=== PATIENT | female | born 1965 | race Caucasian/White ===

== ENCOUNTER 2017-02-10 13:27 | Inpatient (IN) | payer BC ==
[~2017-02-10] VITALS: Ht 167.6 cm; Wt 87.4 kg
[~2017-02-10 13:27] MED LIST: CHOL100010 PO; ESTROGEN CREAM TOP; IBUP-103 PO; MELA1TAB5 PO; PROG100C6 PO; SULF800T23 PO; THY/30 PO; [UNRECOGNIZED DRUG - OTHER] PO
[2017-02-10] MEDS ORDERED: ONDANSETRON INJ 2 MG/ML 2 ML VIAL IV STA (13:49)
[2017-02-10] MEDS ORDERED: MoRPHine SULFATE 10 MG/ML CARP/VIAL IV STA (13:49)
[2017-02-10] MEDS ORDERED: KETOROLAC TROMETHAMINE 30 MG/ML VIAL IV STA (13:49)
[2017-02-10] MEDS ORDERED: DEXAMETHASONE SOD INJ 10 MG/ML VIAL IV ONE (14:00)
[2017-02-10] MEDS ORDERED: HYDROmorphone INJ 1 MG/ML SYR IV STA (14:30)
--- NOTE | 2017-02-10 15:26 | EMERGENCY ROOM VISIT NOTE ---
ED Visit Note First contact with patient: 13:42 CHIEF COMPLAINT: Low back pain with left leg pain HISTORY OF PRESENT ILLNESS: This 51-year-old female presents the ER with chief complaint of acute onset of increased low back pain and pain down her left leg. The patient has chronic back pain since her back surgery [place] [address] Vera. She had a fusion of the L5-S1. She was having some increased back pain in July 2016 and went back to Dr. Vera. They thought she might have SI joint issues. She was told to go back to her chiropractor. The patient states that she has been going there many times a month for the last several months. She states it was getting a little better but today for no reason. She started getting pain in the back and down the left leg. She states in the past. The pain was going down the right leg. The patient denies any urinary symptoms of frequency, urgency or dysuria. The patient denies any loss of bowel or bladder control or any saddle anesthesia. REVIEW OF SYSTEMS:6 system review was performed and was negative unless stated otherwise in history of present illness. PMH: The patient is healthy; L5-S1 fusion [place] [address] Vera, hysterectomy, kidney disease SOCIAL HISTORY: The patient is self-employed. The patient denies any tobacco or alcohol use. PHYSICAL EXAM: Vital Signs normal: Reviewed Nurse's notes and agree. GENERAL: 51-year-old white female appears uncomfortable secondary to back pain. MENTAL STATUS: Alert and oriented 3. LUNGS: Clear to auscultation without wheezes rales or rhonchi. CARDIAC: Regular rate and rhythm without murmur. LUMBAR SPINE: No gross bony abnormality noted. Patient is tender to palpation over the mid to lower spinous processes. She is tender to palpation over the left paravertebral region, right side nontender. Limited range of motion in all directions secondary to pain. Muscle strength is 5 out of 5 bilateral lower extremities and symmetrical. NEURO: Patient is able to heel and toe walk without difficulty. I lateral patellar and Achilles reflexes are 2+. Sensation is intact to pinprick bilateral lower extremities. Negative straight leg raise bilaterally. EMERGENCY DEPARTMENT COURSE: The patient was evaluated. IV access was obtained. The patient was given Toradol 30 mg IV, Decadron 10 mg IV, morphine 6 mg IV and Zofran 4 mg IV push. The patient was reevaluated and was still in significant pain. She was given Dilaudid 1 mg IV. She is reevaluated and was still in significant pain and did not feel comfortable to be discharged. The hospitalist was consulted for admission for 24 hours observation. An x-ray of the lumbar spine was ordered.. DIAGNOSIS: Intractable low back pain DISCHARGE INSTRUCTIONS AND TREATMENT: Admission Problem List Medical Problems: (1) Abdominal pain Status: Resolved (2) Abscess of right breast Status: Resolved (3) Hypothyroidism Nos Status: Chronic (4) Leiomyoma Status: Resolved (5) Menorrhagia Status: Resolved Surgical Problems: (1) History of hysterectomy Status: Resolved (2) History of lumbar fusion Status: Resolved Current/Historical Medications Scheduled Cholecalciferol (Vitamin D), 5,000 INTER.UNIT PO QAM Melatonin (Kp Melatonin), 1 TAB PO HS Progesterone (Prometrium), 200 MG PO DAILY Thyroid ([facility] [place] Thyroid), 30 MG PO QAM [Estrogen Cream], 0.5 ML TOP HS [adrenevive], 2 CAP PO BID Allergies Coded Allergies: Penicillins (Verified Allergy, Mild, Rash, 09/17/16) PT HAD ANCEF W/O RXN 05/19/12 Vital Signs Date Time Temp Pulse Resp B/P Pulse Ox O2 Delivery O2 Flow Rate FiO2 02/10/17 13:32 36.8 115 18 97 Room Air Medications Administered Medications (Trade) Dose Ordered Sig/Mitra Route Start Time Stop Time Status Last Admin Dose Admin Dexamethasone Sodium Phosphate (Decadron Inj) 10 mg NOW ONCE IV 02/10/17 14:00 02/10/17 14:01 DC 02/10/17 14:02 10 MG Ketorolac Tromethamine (Toradol Inj) 30 mg NOW STAT IV 02/10/17 13:49 02/10/17 13:51 DC 02/10/17 14:02 30 MG Morphine Sulfate (MoRPHine SULFATE INJ) 6 mg NOW STAT IV 02/10/17 13:49 02/10/17 13:51 DC 02/10/17 14:02 6 MG Ondansetron HCl (Zofran Inj) 4 mg NOW STAT IV 02/10/17 13:49 02/10/17 13:51 DC 02/10/17 14:02 4 MG Hydromorphone HCl (Dilaudid Inj) 1 mg NOW STAT IV 02/10/17 14:30 02/10/17 14:32 DC 02/10/17 14:38 1 MG Departure Information Impression Primary Impression: Intractable low back pain Dispostion Being Evaluated By Hospitalist Condition GOOD Referrals No Doctor, Assigned (PCP) Patient Instructions [facility]
[2017-02-10] MEDS ORDERED: ONDANSETRON INJ 2 MG/ML 2 ML VIAL IV PRN (15:45)
[2017-02-10] MEDS ORDERED: ACETAMINOPHEN 325 MG TAB PO PRN (15:45)
--- NOTE | 2017-02-10 15:51 | DIAGNOSTIC IMAGING REPORT ---
LUMBAR SPINE 5 VIEWS HISTORY: Pain low back pain COMPARISON: None. FINDINGS: There is no fracture. Mild scoliosis. Vertebral body stature is unremarkable. Mild to moderate degenerative disc changes throughout. Findings consistent with laminectomy and fusion at L5-S1. IMPRESSION: Moderate degenerative and postoperative change. No acute bony abnormality. Electronically signed by: Cory Spencer M.D. 02/10/2017 3:50 PM Dictated Date/Time: 02/10/2017 3:49 PM
[2017-02-10] MEDS: OXYCODONE/ACETAMINOPHEN 5-325 TAB PO PRN ×2 (16:32→23:38)
--- NOTE | 2017-02-10 17:04 | History and Physical ---
History & Physical Date & Time of Service: Feb 10, 2017 at 16:27 Chief Complaint: Low Back Pain Primary Care Physician: No Doctor, Assigned History of Present Illness 51 year old female who presents to the ER with severe low back pain radiating into the left leg. Patient has history of prior lumbar fusion at L5-S1 in 2011. Patient reports intermittent issues with back pain since that times. She was seen at the spine orthopedic office a few months ago for increased pain. She had xrays that were unremarkable and was advised to try chiropractic and massage therapy. Patient reports she initially was having improvement. This morning patient stood up from her desk and had sudden onset of left lower back pain that was radiating into the left hip and down the outer part of left her leg. It caused her to fall to the ground. She reports associated numbness in the left leg. No loss of bowel or bladder function. She denies chest pain and shortness of breath. No lightheadedness, dizziness, diaphoresis, or syncope. She denies abdominal pain, nausea, vomiting, and diarrhea. No fever or chills. She denies urinary symptoms. In the ER, lumbar XR is unremarkable. Patient received Morphine, Dilaudid, Toradol, Decadron, and Zofran and continues to have pain. Past Medical/Surgical History Medical Problems: (1) Abdominal pain Status: Resolved (2) Abscess of right breast Status: Resolved (3) GERD (gastroesophageal reflux disease) Status: Chronic (4) Hypothyroidism Status: Chronic (5) Hypothyroidism Nos Status: Chronic (6) Migraine Status: Chronic Surgical Problems: (1) H/O dilation and curettage Status: Chronic (2) History of hysterectomy Status: Resolved (3) History of hysterectomy Status: Chronic (4) History of lumbar fusion Status: Resolved (5) S/P lumbar fusion Status: Chronic Family History Cardiac disorder in mother Social History Smoking Status: Never Smoker Alcohol Use: socially Multi-Drug Resistant Organisms History of MDRO: No Allergies Coded Allergies: Penicillins (Verified Allergy, Mild, Rash, 09/17/16) PT HAD ANCEF W/O RXN 05/19/12 Home Medications Scheduled Cholecalciferol (Vitamin D), 5,000 INTER.UNIT PO QAM Melatonin (Kp Melatonin), 1 TAB PO HS Progesterone (Prometrium), 200 MG PO DAILY Thyroid ([place] Thyroid), 30 MG PO QAM [Estrogen Cream], 0.5 ML TOP HS [adrenevive], 2 CAP PO BID Review of Systems 10 point review of systems was completed with the pertinent positives and negatives noted per the HPI Physical Exam Vital Signs Date Time Temp Pulse Resp B/P Pulse Ox O2 Delivery O2 Flow Rate FiO2 02/10/17 15:28 108 16 156/80 96 Room Air 02/10/17 13:32 36.8 115 18 97 Room Air General Appearance: no apparent distress Head: normocephalic Eyes: normal inspection ENT: hearing grossly normal Neck: supple, no JVD Respiratory/Chest: lungs clear, normal breath sounds, no respiratory distress Cardiovascular: regular rate, rhythm, no edema, normal peripheral pulses Abdomen/GI: normal bowel sounds, non tender, soft Extremities/Musculoskelatal: + pertinent finding (positive straight leg test on left ) Neurologic/Psych: no motor/sensory deficits, alert, normal mood/affect, oriented x 3 Skin: normal color, warm/dry Diagnostics Laboratory Results Results Past 24 Hours Test 02/10/17 16:02 Range/Units Diagnostic Radiology LUMBAR XR IMPRESSION: Moderate degenerative and postoperative change. No acute bony abnormality. Impression Assessment and Plan INTRACTABLE LOW BACK PAIN - admit to med/surg - patient with history of L5-S1 fusion in 2011; patient reports intermittent back pain since then however had sudden onset of severe left sided low back pain with radiation down the lateral side of the left leg with associated numbness; no loss of bowel or bladder function - lumbar XR unremarkable; will defer further imaging to spine ortho - will start around the clock Toradol and steroids; Percocet and Morphine for severe pain - consult spine ortho - PT/OT HYPOTHYROIDISM - continue [place] thyroid DVT PROPHYLAXIS - SCDs DISPO - The patient will be placed as observation status for now until further work up is complete. I have seen, examined and discussed this patient with Deb Chaves and I agree with the above note. Patient with worsening low back pain, with radiation down the left leg. Vitals stable. PE: General- awake; alert; NAD Eyes- EOMI; no scleral icterus Neck- no stridor; trachea midline Lungs- CTA bilaterally; no wheezes/crackles Heart- RRR; no m/r/g Abdomen- soft; NTND; nBS Back- left paraspinal tenderness to palpation; lumbar spinal tenderness to palpation; +leg raise Extremities- no c/c/e; no deformity Neuro- no focal deficits; strength equal bilateral LE Skin- no appreciable rash or bruise Imaging reviewed. Acute on chronic low back pain with apparent sciatica: Orthopedics consulted. PT /OT evaluations. Pain control as outlined above. VTE Prophylaxis VTE Risk Assessment Done? Y/N: Yes Risk Level: Moderate
[2017-02-10 17:30] VITALS: BP 147/73; PULSE 88; TEMP 36.9; O2SAT 94; Ht 167.6 cm; Wt 87.4 kg
[2017-02-10 18:17] LABS: HEMATOCRIT 42.7 % (37-47); MEAN CORPUSCULAR HGB CONC 33.7 g/dl (32-36); MEAN PLATELET VOLUME 9.3 fL (7.4-10.4); PLATELET COUNT 358 K/uL (130-400); RED BLOOD COUNT 4.64 M/uL (4.2-5.4); WHITE BLOOD COUNT 11.22 K/uL (4.8-10.8)
[2017-02-10 18:39] LABS: BUN/CREATININE RATIO 22.5 (10-20); CALCIUM 9.5 mg/dl (8.5-10.1); CREATININE 0.69 mg/dl (0.60-1.20); POTASSIUM 3.9 mmol/L (3.5-5.1)
[2017-02-10] MEDS ORDERED: INFLUENZA ADMINISTRATION CHARGE ONE (20:30)
[2017-02-10] MEDS ORDERED: INFLUENZA VIRUS QUAD VACCINE 0.5 ML SYR IM. ONE (20:30)
[2017-02-10] MEDS: KETOROLAC TROMETHAMINE 30 MG/ML VIAL IV. SCH (21:16)
[2017-02-10] MEDS: DEXAMETHASONE INJ 4 MG in SYRINGE 0 ML IV SCH (21:55)
[2017-02-10] MEDS: MoRPHine SULFATE 4 MG/ML 1 ML CARP\\VIAL IV PRN (22:03)
[2017-02-10 23:07] VITALS: BP 128/76; PULSE 109; TEMP 37; O2SAT 92
[2017-02-11] VITALS (7 sets, daily range): BP systolic 113–159; BP diastolic 75–88; PULSE 89–115; TEMP 36.8–37.2; O2SAT 94–99
[2017-02-11] MEDS: KETOROLAC TROMETHAMINE 30 MG/ML VIAL IV. SCH ×2 (04:49→13:12)
[2017-02-11] MEDS: OXYCODONE/ACETAMINOPHEN 5-325 TAB PO PRN ×4 (04:53→23:47)
[2017-02-11] MEDS: ARMOUR THYROID 30 MG TAB PO SCH (05:51)
[2017-02-11] MEDS: DEXAMETHASONE INJ 4 MG in SYRINGE 0 ML IV SCH ×3 (05:52→22:02)
[2017-02-11] MEDS: MoRPHine SULFATE 4 MG/ML 1 ML CARP\\VIAL IV PRN ×2 (06:31→11:41)
[2017-02-11] MEDS: CHOLECALCIFEROL 1000 INTER.UNIT TAB PO SCH (09:07)
--- NOTE | 2017-02-11 16:06 | DIAGNOSTIC IMAGING REPORT ---
MRI OF THE LUMBAR SPINE WITHOUT IV CONTRAST CLINICAL HISTORY: Back pain and left lower extremity radiculopathy. COMPARISON STUDY: Radiographs of the lumbar spine dated 02/10/2017. Abdominal CT dated 01/16/2016. TECHNIQUE: MRI of the lumbar spine is performed utilizing various T1 and T2-weighted sequences in the axial and sagittal planes. IV contrast was not administered for this examination. FINDINGS: Lumbar spine: Vertebral body height and alignment are maintained throughout the lumbar spine. There is mild straightening of the lumbar lordosis. There is evidence of posterior fusion at L5-S1. Interpedicular screws are present at both levels. The remaining spinous processes and the transverse processes are grossly intact. Chronic degenerative endplate change is seen at L4-L5 and L5-S1. Endplate edema is noted at L5-S1. No destructive bony lesion is seen. A tiny hemangioma is suspected in the body of T12. Intervertebral discs: There is evidence of discectomy at L5-S1. Degenerative disc desiccation is seen at the remaining lumbar levels. There is moderate loss of height at L4-L5. Only mild loss of height is seen at the remaining levels. Spinal cord: The visualized spinal cord is normal in morphology and signal intensity. The conus medullary terminates at the T12-L1 interspace. The nerve roots of the cauda equina are normal in morphology. L1-L2: There is posterior disc bulge eccentric to the left. The central canal is clear. The disc bulge abuts the transiting left L2 nerve root. The neural foramina are clear. L2-L3: There is minimal posterior disc bulge. The central canal is clear, as are the neural foramina. There is mild left-sided subarticular stenosis. L3-L4: There is posterior disc bulge. There is no significant acquired compromise of the central canal. There is mild bilateral subarticular stenosis, left greater than right. The neural foramina are patent. L4-L5: There is a posterior disc herniation with an inferiorly extruded fragment eccentric to the left. The disc fragment measures at least 1.5 cm. There is no significant acquired compromise of the central canal at this level. The disc fragment abuts the transiting left-sided nerve roots. L5-S1: The central canal and neural foramina are patent. Soft tissues: Postoperative changes seen posteriorly at L5-S1. There is mild fatty atrophy of the paraspinous musculature. Bilateral parapelvic cysts are seen in the kidneys. Sacrum: Visualized sacrum is normal in morphology and signal intensity. IMPRESSION: 1. There are postoperative changes from L5-S1 spinal fusion. The central canal appears clear at this level. 2. There is a posterior disc herniation with a large inferiorly extruded fragment eccentric to the left at L4-L5. This likely abuts the transiting left-sided nerve roots. 3. Lumbosacral spondylosis at additional levels as detailed above. See discussion for [id number] analysis. 4. Degenerative disc disease as above with associated endplate edema at L4-L5. Dictated: 02/11/2017 3:41 PM Transcribed: 02/11/2017 4:06 PM [email or web address] Electronically signed by: Tonny Daly M.D. 02/14/2017 7:05 AM Dictated Date/Time: 02/11/2017 3:41 PM
[2017-02-11] MEDS ORDERED: CLONIDINE HCL 0.1 MG TAB PO PRN (17:00)
--- NOTE | 2017-02-11 17:02 | ORTHOPEDIC CONSULTATION ---
DATE OF CONSULTATION: 02/11/2017 CHIEF COMPLAINT: Left leg pain. HISTORY OF PRESENT ILLNESS: This is a 51-year-old female who is well known to me status post lumbar decompression and fusion in 2011. She had really done nicely postoperatively, but over the past several months had had some intermittent back pain, but over the past day or so had marked increase of symptom complex involving the left buttock, posterior thigh extending below the knee into the dorsum of the foot and medial toes. It is significantly limiting in nature with inability to ambulate. The right lower extremity is essentially asymptomatic. She denies any loss of bowel or bladder function. Of note, she has been undergoing pediatric care coordinator and physical therapy prior to this time. PHYSICAL EXAMINATION: She exhibits marked tension signs to straight leg raising on the left. She has weakness to dorsiflexion and extensor hallus longus on the left compared to 5/5 on the right. Sensory is symmetric and intact. X-rays do demonstrate solid fusion at the L5-S1 level. No gross instability appreciated. ASSESSMENT: Acute left-sided lumbar radiculopathy. PLAN: At this time would like to obtain an MRI of the lumbar spine, review the findings and make further recommendations.
--- NOTE | 2017-02-11 17:05 | Progress Note ---
Medicine Progress Note Date & Time of Visit: Feb 11, 2017 at 17:01. Subjective seen resting in bed states pain scale is 5/10, worse with walking no leg weakness, numbness no chest pain, dyspnea, dizziness reports mild epigastric discomfort today no other symptoms Objective Last 8 Hrs Date Time Temp Pulse Resp B/P Pulse Ox O2 Delivery O2 Flow Rate FiO2 02/11/17 14:52 36.9 105 20 159/77 99 02/11/17 11:47 37.1 108 22 143/88 96 Room Air 02/11/17 11:30 115 95 02/11/17 09:27 98 Room Air Physical Exam: General-oriented x 3, not in distress, speaks in sentences with no effort Head- atraumatic Eyes- EOMI, anicteric Neck- supple, no JVD Lungs- clear to auscultation b/l Heart- regular rhythm; no murmur, sabine rate Abdomen- normal bowel sounds, soft, nontender Extremities- no pretibial edema, no calf tenderness Neuro- alert, oriented x 3; no gross deficits Skin- warm & dry Laboratory Results: Last 24 Hours Test 02/10/17 18:05 White Blood Count 11.22 K/uL Red Blood Count 4.64 M/uL Hemoglobin 14.4 g/dL Hematocrit 42.7 % Mean Corpuscular Volume 92.0 fL Mean Corpuscular Hemoglobin 31.0 pg Mean Corpuscular Hemoglobin Concent 33.7 g/dl RDW Standard Deviation 43.5 fL RDW Coefficient of Variation 13.0 % Platelet Count 358 K/uL Mean Platelet Volume 9.3 fL Sodium Level 142 mmol/L Potassium Level 3.9 mmol/L Chloride Level 106 mmol/L Carbon Dioxide Level 25 mmol/L Anion Gap 11.0 mmol/L Blood Urea Nitrogen 16 mg/dl Creatinine 0.69 mg/dl Est Creatinine Clear Calc Drug Dose 107.4 ml/min Estimated GFR () 116.8 Estimated GFR (Non- 100.8 BUN/Creatinine Ratio 22.5 Random Glucose 147 mg/dl Calcium Level 9.5 mg/dl Assessment & Plan INTRACTABLE LOW BACK PAIN DISC HERNIATION L4-L5 - patient with history of L5-S1 fusion in 2011; patient reports intermittent back pain since then however had sudden onset of severe left sided low back pain with radiation down the lateral side of the left leg with associated numbness; no loss of bowel or bladder function - start Tramadol PRN, Gabapentin, Lidoderm patch, warm compress continue PRN Morphine start Senokot S, IV fluids - awaiting Dr. Vera's recommendations HYPOTHYROIDISM - check TS H - continue [place] thyroid HYPERTENSION - likely from pain also has white coat syndrome as per patient - Clonidine PRN DVT PROPHYLAXIS - SCDs for now DISPO pending Current Inpatient Medications: Current Inpatient Medications Medications (Trade) Dose Ordered Sig/Mitra Route Start Time Stop Time Status Last Admin Dose Admin Acetaminophen (Tylenol Tab) 650 mg Q4H PRN PO 02/10/17 15:45 03/12/17 15:44 Ondansetron HCl 4 mg 4 mg Q6H PRN IV 02/10/17 15:45 03/12/17 15:44 02/10/17 22:02 4 MG Dexamethasone Sodium Phosphate/ Syringe (Decadron Inj/ Syringe) 1 ml @ 1 mls/min Q8H IV 02/10/17 22:00 03/12/17 21:59 02/11/17 13:53 1 MLS/MIN Oxycodone/ Acetaminophen (Percocet 5-325mg Tab) 1 tab Q4H PRN PO 02/10/17 16:15 02/24/17 16:14 02/11/17 14:03 1 TAB Morphine Sulfate (MoRPHine SULFATE INJ) 3 mg Q4H PRN IV 02/10/17 16:15 02/24/17 16:14 02/11/17 11:41 3 MG Cholecalciferol (Vitamin D Tab) 5,000 inter.unit QAM PO 02/11/17 09:00 03/13/17 08:59 02/11/17 09:07 5,000 INTER.UNIT Thyroid ([place] Thyroid Tab) 30 mg DAILYBB PO 02/11/17 06:00 03/13/17 06:59 02/11/17 05:51 30 MG Miscellaneous Information (Order Awaiting Action) 1 ea QS N/A 02/11/17 00:00 03/13/17 00:00 Ketorolac Tromethamine (Toradol Inj) 30 mg Q8H IV. 02/10/17 21:00 02/15/17 20:59 02/11/17 13:12 30 MG
[2017-02-11] MEDS: SODIUM CHLORIDE 0.9% 1000ML 1,000 ML IV SCH (17:37)
[2017-02-11] MEDS ORDERED: LIDODERM (LIDOCAINE) PATCH 5% TD ONE (18:00)
[2017-02-11] MEDS ORDERED: DOCUSATE SODIUM/SENNA 50/8.6MG TAB PO ONE (18:00)
[2017-02-11] MEDS ORDERED: PANTOprazole INJ 40 MG in SYRINGE 0 ML IV ONE (18:00)
[2017-02-11] MEDS: MAGNESIUM HYDROXIDE SUSP 30 ML UDC PO PRN (20:34)
[2017-02-11] MEDS: TRAMADOL HCL 50 MG TAB PO PRN (20:34)
[2017-02-11] MEDS: GABAPENTIN 300 MG CAP PO SCH (20:34)
[2017-02-12] MEDS: SODIUM CHLORIDE 0.9% 1000ML 1,000 ML IV SCH ×3 (02:14→22:35)
[2017-02-12] MEDS: OXYCODONE/ACETAMINOPHEN 5-325 TAB PO PRN ×3 (05:22→21:29)
[2017-02-12] MEDS: ARMOUR THYROID 30 MG TAB PO SCH (05:23)
[2017-02-12] MEDS: DEXAMETHASONE INJ 4 MG in SYRINGE 0 ML IV SCH ×3 (05:24→21:34)
[2017-02-12 06:02] LABS: COMPLETE YES; HEMATOCRIT 40.1 % (37-47); IG% 0.3 %; LYMPH % 4.7 %; LYMPH ABS # 0.68 K/uL (1.2-3.4); MEAN CELL VOLUME 93.3 fL (80-100); MEAN CORPUSCULAR HEMOGLOBIN 30.5 pg (25-34); MEAN CORPUSCULAR HGB CONC 32.7 g/dl (32-36); MEAN PLATELET VOLUME 9.5 fL (7.4-10.4); MONO % 5.2 %; NEUT % 89.8 %; PLATELET COUNT 320 K/uL (130-400); WHITE BLOOD COUNT 14.34 K/uL (4.8-10.8)
[2017-02-12 06:35] LABS: BUN/CREATININE RATIO 36.2 (10-20); CALCIUM 8.6 mg/dl (8.5-10.1); CREATININE 0.7 mg/dl (0.60-1.20)
[2017-02-12 06:45] LABS: THYROID STIMULATING HORMONE 0.267 uIu/ml (0.300-4.500)
[2017-02-12 07:11] VITALS: BP 127/81; PULSE 81; TEMP 36.8; O2SAT 95
[2017-02-12] MEDS: GABAPENTIN 300 MG CAP PO SCH ×3 (08:32→19:58)
[2017-02-12] MEDS: CHOLECALCIFEROL 1000 INTER.UNIT TAB PO SCH (08:32)
[2017-02-12] MEDS: LIDODERM (LIDOCAINE) PATCH 5% TD SCH (08:38)
[2017-02-12] MEDS ORDERED: [UNRECOGNIZED DRUG - OTHER] EXT SCH (09:00)
[2017-02-12] MEDS: DOCUSATE SODIUM/SENNA 50/8.6MG TAB PO SCH (09:11)
--- NOTE | 2017-02-12 10:26 | PROGRESS NOTE ---
DATE: 02/12/2017 DATE: 02/12/2017. SUBJECTIVE: Ms. Blanco continues to complain of significant left leg pain and weakness. She has marked difficulty with ambulation secondary to discomfort and weakness. MRI performed yesterday afternoon of the lumbar spine [facility] available for review. It demonstrates instrumented solid fusion at the 5-1 level with evidence of marked Modic disease involving endplates of L4 and L5. There is significant degenerative change and a massive disc herniation at the 4-5 level on the left with caudal migration including a free fragment. This is creating significant compression of the traversing L5 nerve root. The disc itself nestled along the pedicle of L5 on the left. PHYSICAL EXAMINATION: The patient continues to demonstrate marked weakness to dorsiflexion on the left compared to the right and is obviously uncomfortable. Tension signs present on the left. ASSESSMENT: Herniated nucleus pulposus with marked neural compression L4-L5. PLAN: At this time, I had a long discussion with this patient regarding treatment options. They do include possible continued medical management, epidural injections or ultimately surgical intervention. Surgery would require decompression and fusion L4-L5 with removal of instrumentation L5-S1. Risks, benefits, pros, cons, and alternatives were outlined in detail. Risks include but not limited to from anesthesia, ____ process, nerve damage, blood loss requiring transfusion, infection, reoperation. Benefits would be marked improvement of her radiculopathy that is. At this time, the patient is going to consider options. I will see her again tomorrow morning. If she elects to pursue surgical intervention we would try to get this done Tuesday or as soon as possible in light of her neurologic decline.
[2017-02-12] MEDS: PANTOprazole INJ 40 MG in SYRINGE 0 ML IV SCH (11:16)
[2017-02-12] MEDS: MoRPHine SULFATE 4 MG/ML 1 ML CARP\\VIAL IV PRN (11:17)
--- NOTE | 2017-02-12 12:14 | Progress Note ---
Medicine Progress Note Date & Time of Visit: Feb 12, 2017 at 12:08. Subjective resting in bed had significant pain with walking pain level about the same as yesterday, relieved with PRN analgesics temporarily denies chest pain, dyspnea, palpitations, dizziness no BM yet no other symptoms Objective Last 8 Hrs Date Time Temp Pulse Resp B/P Pulse Ox O2 Delivery O2 Flow Rate FiO2 02/12/17 07:11 36.8 81 16 127/81 95 Room Air Physical Exam: General-oriented x 3, not in distress, speaks in sentences with no effort Eyes- anicteric Neck- no JVD Lungs- clear to auscultation b/l, no rales/wheezes Heart- regular rhythm; no murmur, normal rate Abdomen- normal bowel sounds, soft, nontender Extremities- no pretibial edema, no calf tenderness Neuro- alert, oriented x 3; no gross deficits Skin- warm & dry Laboratory Results: Last 24 Hours Test 02/12/17 05:09 White Blood Count 14.34 K/uL Red Blood Count 4.30 M/uL Hemoglobin 13.1 g/dL Hematocrit 40.1 % Mean Corpuscular Volume 93.3 fL Mean Corpuscular Hemoglobin 30.5 pg Mean Corpuscular Hemoglobin Concent 32.7 g/dl Platelet Count 320 K/uL Mean Platelet Volume 9.5 fL Neutrophils (%) (Auto) 89.8 % Lymphocytes (%) (Auto) 4.7 % Monocytes (%) (Auto) 5.2 % Eosinophils (%) (Auto) 0.0 % Basophils (%) (Auto) 0.0 % Neutrophils # (Auto) 12.87 K/uL Lymphocytes # (Auto) 0.68 K/uL Monocytes # (Auto) 0.74 K/uL Eosinophils # (Auto) 0.00 K/uL Basophils # (Auto) 0.00 K/uL RDW Standard Deviation 45.2 fL RDW Coefficient of Variation 13.2 % Immature Granulocyte % (Auto) 0.3 % Immature Granulocyte # (Auto) 0.05 K/uL Sodium Level 142 mmol/L Potassium Level 4.0 mmol/L Chloride Level 108 mmol/L Carbon Dioxide Level 27 mmol/L Anion Gap 7.0 mmol/L Blood Urea Nitrogen 25 mg/dl Creatinine 0.70 mg/dl Est Creatinine Clear Calc Drug Dose 105.8 ml/min Estimated GFR () 116.3 Estimated GFR (Non- 100.3 BUN/Creatinine Ratio 36.2 Random Glucose 121 mg/dl Calcium Level 8.6 mg/dl Thyroid Stimulating Hormone (TSH) 0.267 uIu/ml Assessment & Plan INTRACTABLE LOW BACK PAIN DISC HERNIATION L4-L5 - patient with history of L5-S1 fusion in 2011; patient reports intermittent back pain since then however had sudden onset of severe left sided low back pain with radiation down the lateral side of the left leg with associated numbness; no loss of bowel or bladder function - MRI noted - change Morphine to Dilaudid PRN continue percocet, tramadol, gabapentin, lidoderm patch, IV fluids add Heparin q8h for DVT prophylaxis - start Tramadol PRN, Gabapentin, Lidoderm patch, warm compress continue PRN Morphine - evaluated by Dr. Vera, may need surgical intervention appreciate the input HYPOTHYROIDISM - check TS H 0.2 check FT4 - continue [place] thyroid HYPERTENSION - likely from pain also has white coat syndrome as per patient - improving - Clonidine PRN DVT PROPHYLAXIS Heparin SC q8h hold night before surgery DISPO pending Current Inpatient Medications: Current Inpatient Medications Medications (Trade) Dose Ordered Sig/Mitra Route Start Time Stop Time Status Last Admin Dose Admin Acetaminophen (Tylenol Tab) 650 mg Q4H PRN PO 02/10/17 15:45 03/12/17 15:44 Ondansetron HCl 4 mg 4 mg Q6H PRN IV 02/10/17 15:45 03/12/17 15:44 02/10/17 22:02 4 MG Dexamethasone Sodium Phosphate/ Syringe (Decadron Inj/ Syringe) 1 ml @ 1 mls/min Q8H IV 02/10/17 22:00 03/12/17 21:59 02/12/17 05:24 1 MLS/MIN Oxycodone/ Acetaminophen (Percocet 5-325mg Tab) 1 tab Q4H PRN PO 02/10/17 16:15 02/24/17 16:14 02/12/17 11:53 1 TAB Morphine Sulfate (MoRPHine SULFATE INJ) 3 mg Q4H PRN IV 02/10/17 16:15 02/24/17 16:14 02/12/17 11:17 3 MG Cholecalciferol (Vitamin D Tab) 5,000 inter.unit QAM PO 02/11/17 09:00 03/13/17 08:59 02/12/17 08:32 5,000 INTER.UNIT Thyroid 30 mg 30 mg DAILYBB PO 02/11/17 06:00 03/13/17 06:59 02/12/17 05:23 30 MG Pantoprazole Sodium/Syringe (Protonix Inj/ Syringe) 10 ml @ 5 mls/min DAILY@11 IV 02/12/17 11:00 03/14/17 10:59 02/12/17 11:16 5 MLS/MIN Tramadol HCl (Ultram Tab) 50 mg Q6H PRN PO 02/11/17 17:00 03/13/17 16:59 02/11/17 20:34 50 MG Gabapentin 300 mg 300 mg TID PO 02/11/17 21:00 03/13/17 20:59 02/12/17 08:32 300 MG Sodium Chloride (Nss 1000ml) 1,000 ml @ 100 mls/hr Q10H IV 02/11/17 17:00 03/13/17 16:59 02/12/17 11:54 100 MLS/HR Senna/Docusate Sodium (Senokot S Tab) 1 tab QAM PO 02/12/17 09:00 03/14/17 08:59 02/12/17 09:11 1 TAB Magnesium Hydroxide (Milk Of Magnesia Susp) 30 ml Q6H PRN PO 02/11/17 17:00 03/13/17 16:59 02/11/17 20:34 30 ML Clonidine HCl (Catapres Tab) 0.1 mg Q6H PRN PO 02/11/17 17:00 03/13/17 16:59 Lidocaine (Lidoderm Patch 5%) 1 patch QAM TD 02/12/17 09:00 03/14/17 08:59 02/12/17 08:38 1 PATCH Miscellaneous (Remove Lidoderm Patch) 1 ea DAILY@21 N/A 02/11/17 21:00 03/13/17 20:59 02/11/17 22:04 1 EA Non-Formulary Medication 1 ea QAM EXT 02/12/17 09:00 03/13/17 22:14 02/12/17 08:36 1 EA Non-Formulary Medication (Non-Formulary Patient'S Own Med) 1 ea HS PO 02/12/17 21:00 03/14/17 20:59
[2017-02-12] MEDS ORDERED: BISACODYL 10 MG SUPP PR PRN (12:15)
[2017-02-12 13:45] LABS: PARTIAL THROMBOPLASTIN RATIO 0.9; PROTHROMBIN TIME (PATIENT) 10.7 SECONDS (9.0-12.0)
[2017-02-12] MEDS: LACTULOSE SYRUP 30 GM/45 ML UDP PO PRN (15:05)
[2017-02-12 15:18] VITALS: BP 147/80; PULSE 82; TEMP 36.6; O2SAT 99
[2017-02-12] MEDS: HEPARIN SOD 5000 UNIT/0.5 ML CARP SQ SCH ×2 (16:28→21:30)
[2017-02-12] MEDS: HYDROmorphone INJ 0.5 MG/0.5 ML SYR IV PRN (19:50)
[2017-02-12] MEDS: PROGESTERONE 150 MG PO SCH (19:57)
[2017-02-12 22:45] VITALS: BP 111/72; PULSE 78; TEMP 36.7; O2SAT 94
[2017-02-13] VITALS (8 sets, daily range): BP systolic 114–165; BP diastolic 63–82; PULSE 70–95; TEMP 36.8–37.1; O2SAT 92–98
[2017-02-13] MEDS: HYDROmorphone INJ 0.5 MG/0.5 ML SYR IV PRN ×2 (02:28→11:03)
[2017-02-13] MEDS: HEPARIN SOD 5000 UNIT/0.5 ML CARP SQ SCH ×2 (05:11→14:00)
[2017-02-13] MEDS: DEXAMETHASONE INJ 4 MG in SYRINGE 0 ML IV SCH ×3 (05:14→21:10)
[2017-02-13] MEDS: ARMOUR THYROID 30 MG TAB PO SCH (05:16)
[2017-02-13] MEDS: OXYCODONE/ACETAMINOPHEN 5-325 TAB PO PRN (05:19)
[2017-02-13] MEDS: SODIUM CHLORIDE 0.9% 1000ML 1,000 ML IV SCH ×3 (08:04→17:46)
[2017-02-13] MEDS ORDERED: MoRPHine SULFATE 4 MG/ML 1 ML CARP\\VIAL IV PRN (08:15)
[2017-02-13] MEDS ORDERED: OXYCODONE/ACETAMINOPHEN 5-325 TAB PO PRN (08:15)
[2017-02-13] MEDS: [UNRECOGNIZED DRUG - OTHER] EXT SCH (08:34)
[2017-02-13] MEDS: DOCUSATE SODIUM/SENNA 50/8.6MG TAB PO SCH (08:34)
[2017-02-13] MEDS: GABAPENTIN 300 MG CAP PO SCH ×3 (08:34→21:08)
[2017-02-13] MEDS: LIDODERM (LIDOCAINE) PATCH 5% TD SCH (08:35)
[2017-02-13] MEDS: CHOLECALCIFEROL 1000 INTER.UNIT TAB PO SCH (08:35)
[2017-02-13] MEDS: PANTOprazole INJ 40 MG in SYRINGE 0 ML IV SCH (11:03)
[2017-02-13] MEDS ORDERED: MoRPHine SULFATE 1 MG/ML 50 ML PCA CASS IV PRN (11:15)
[2017-02-13] MEDS ORDERED: NURSING VERBAL MED ORDER ONE (11:45)
[2017-02-13] MEDS ORDERED: NALOXONE HCL 0.4 MG/1 ML VIAL/CARP IV PRN ×2 (11:45)
[2017-02-13] MEDS ORDERED: SODIUM CHLORIDE 0.9% 1000ML 1,000 ML IV SCH (11:45)
[2017-02-13] MEDS ORDERED: HYDROmorphone HCL 0.5MG/ML 50 ML CASSETTE IV PRN (11:45)
[2017-02-13] MEDS: MORPHINE SULFATE 1 MG/ML 50 ML PCA SYR IV PRN ×3 (11:56→18:57)
--- NOTE | 2017-02-13 12:46 | PROGRESS NOTE ---
DATE: 02/13/2017 We had a lengthy discussion this morning regarding her progress. She still has significant pain and marked limitation with ambulation. She would like to proceed with surgical intervention. Again reviewed in detail what this would involve. She understands and agrees. PHYSICAL EXAMINATION: She does exhibit significant weakness to left dorsiflexion as well as extensor hallucis longus. She has dense numbness below the knee, particularly along the anterior tibia. Right lower extremity is asymptomatic. ASSESSMENT: Herniated nucleus pulposus, L4-L5. PLAN: At this time, she would like to proceed with surgery. She will be made n.p.o. after midnight. Again reviewed in detail what surgery would involve, risks, benefits, pros, cons, and alternatives.
--- NOTE | 2017-02-13 17:50 | Progress Note ---
Medicine Progress Note Date & Time of Visit: Feb 13, 2017 at 17:47. Subjective pain uncontrolled still this AM 9/10 morphine REAL ESTATE OFFICE SUPERVISOR started this PM, patient states her pain is under better controlled, in good spirits left leg is weaker and sensation decreasing,no incontinence no chest pain, dyspnea, palpitations, dizziness, nausea no other symptoms Objective Last 8 Hrs Date Time Temp Pulse Resp B/P Pulse Ox O2 Delivery O2 Flow Rate FiO2 02/13/17 16:51 36.8 70 18 165/81 98 Room Air 02/13/17 16:45 Room Air 02/13/17 14:51 37.1 86 16 117/75 94 Room Air 02/13/17 14:05 36.8 75 16 114/63 95 Room Air 02/13/17 13:05 37.0 95 18 132/82 93 Room Air 02/13/17 11:57 37.0 78 18 136/79 92 Room Air Physical Exam: General-oriented x 3, not in distress, speaks in sentences with no effort Eyes- anicteric Neck- no JVD Lungs- clear to auscultation b/l, no rales/wheezes Heart- regular rhythm; no murmur, normal rate Abdomen- normal bowel sounds, soft, nontender Extremities- no pretibial edema, no calf tenderness Neuro- alert, oriented x 3; left leg 4/5, sensation 50%, no other gross deficits Skin- warm & dry Assessment & Plan INTRACTABLE LOW BACK PAIN DISC HERNIATION L4-L5 - patient with history of L5-S1 fusion in 2011; patient reports intermittent back pain since then however had sudden onset of severe left sided low back pain with radiation down the lateral side of the left leg with associated numbness; no loss of bowel or bladder function - MRI noted - now on REAL ESTATE OFFICE SUPERVISOR Morphine pump hold heparin tonight - for surgery tomorrow, possible decompression no medical contraindications for surgery - evaluated by Dr. Vera appreciate the input HYPOTHYROIDISM - check TS H 0.2 check FT4: normal - continue [place] thyroid HYPERTENSION - likely from pain also has white coat syndrome as per patient - improving - Clonidine PRN DVT PROPHYLAXIS Heparin SC q8h hold tonight DISPO pending Current Inpatient Medications: Current Inpatient Medications Medications (Trade) Dose Ordered Sig/Mitra Route Start Time Stop Time Status Last Admin Dose Admin Acetaminophen (Tylenol Tab) 650 mg Q4H PRN PO 02/10/17 15:45 03/12/17 15:44 Ondansetron HCl 4 mg 4 mg Q6H PRN IV 02/10/17 15:45 03/12/17 15:44 02/10/17 22:02 4 MG Dexamethasone Sodium Phosphate/ Syringe (Decadron Inj/ Syringe) 1 ml @ 1 mls/min Q8H IV 02/10/17 22:00 03/12/17 21:59 02/13/17 14:08 1 MLS/MIN Cholecalciferol (Vitamin D Tab) 5,000 inter.unit QAM PO 02/11/17 09:00 03/13/17 08:59 02/13/17 08:35 5,000 INTER.UNIT Thyroid 30 mg 30 mg DAILYBB PO 02/11/17 06:00 03/13/17 06:59 02/13/17 05:16 30 MG Pantoprazole Sodium/Syringe (Protonix Inj/ Syringe) 10 ml @ 5 mls/min DAILY@11 IV 02/12/17 11:00 03/14/17 10:59 02/13/17 11:03 5 MLS/MIN Tramadol HCl (Ultram Tab) 50 mg Q6H PRN PO 02/11/17 17:00 03/13/17 16:59 02/11/17 20:34 50 MG Gabapentin 300 mg 300 mg TID PO 02/11/17 21:00 03/13/17 20:59 02/13/17 14:08 300 MG Sodium Chloride (Nss 1000ml) 1,000 ml @ 100 mls/hr Q10H IV 02/11/17 17:00 03/13/17 16:59 02/13/17 17:46 100 MLS/HR Senna/Docusate Sodium (Senokot S Tab) 1 tab QAM PO 02/12/17 09:00 03/14/17 08:59 02/13/17 08:34 1 TAB Magnesium Hydroxide (Milk Of Magnesia Susp) 30 ml Q6H PRN PO 02/11/17 17:00 03/13/17 16:59 02/11/17 20:34 30 ML Clonidine HCl (Catapres Tab) 0.1 mg Q6H PRN PO 02/11/17 17:00 03/13/17 16:59 Lidocaine (Lidoderm Patch 5%) 1 patch QAM TD 02/12/17 09:00 03/14/17 08:59 02/13/17 08:35 1 PATCH Miscellaneous (Remove Lidoderm Patch) 1 ea DAILY@21 N/A 02/11/17 21:00 03/13/17 20:59 02/12/17 21:29 1 EA Non-Formulary Medication (Non-Formulary Patient'S Own Med) 1 ea HS PO 02/12/17 21:00 03/14/17 20:59 02/12/17 19:57 1 EA Hydromorphone HCl (Dilaudid Inj) 0.5 mg Q3H PRN IV 02/12/17 12:15 02/26/17 12:14 02/13/17 11:03 0.5 MG Lactulose (Chronulac Syrup) 30 gm TID PRN PO 02/12/17 12:15 03/14/17 12:14 02/12/17 15:05 30 GM Bisacodyl (Dulcolax Supp) 10 mg DAILY PRN MO 02/12/17 12:15 03/14/17 12:14 Heparin Sodium (Porcine) (Heparin Sq 5000 Unit/0.5ml) 5,000 unit Q8 SQ 02/12/17 17:00 03/14/17 16:59 02/12/17 21:30 5,000 UNIT Non-Formulary Medication 1 ea QAM EXT 02/13/17 09:00 03/15/17 08:59 02/13/17 08:34 1 EA Oxycodone/ Acetaminophen (Percocet 5-325mg Tab) `1-2 tabs for pain 1 tab ... Q4H PRN PO 02/13/17 08:15 02/27/17 08:14 02/13/17 09:29 2 TAB Morphine Sulfate (MoRPHine SULFATE INJ) 4 mg Q3H PRN IV 02/13/17 08:15 02/27/17 08:14 02/13/17 08:31 4 MG Naloxone HCl (Narcan Inj) 0.1 mg Q5M PRN IV 02/13/17 11:45 02/27/17 11:44 Morphine Sulfate 50 mg 50 mg PRN PRN IV 02/13/17 11:45 02/27/17 11:44 02/13/17 14:55 50 MG Sodium Chloride (Nss 1000ml) 1,000 ml @ 15 mls/hr Q24H IV 02/13/17 11:45 03/15/17 11:44
--- NOTE | 2017-02-13 18:16 | Anesthesiology Progress Note ---
Anesthesia Progress Note Date of Service Feb 13, 2017. Progress Notes The patient is a 51 y/o female scheduled for L5/S1 hardware removal and L4/[address] Vera tomorrow. She has had worsening L leg and back pain. 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 PMH includes chronic cough, tachycardia, GERD, hypothyroidism, migraines, and obesity. She had a hysterectomy one year ago with no anesthesia problems. EKG shows NSR with sinus arrhythmia. Labs are significant for WBC 14.3. On exam the patient is pleasant. She has MP 2 airway with good neck extension. Teeth are intact with caps. Lungs are clear. Heart is RRR. Carotids are negative for bruits. She is an ASA 2. The patient was consented to GA with ETT. She was counseled to remain NPO after midnight except for sips of water with pills.
[2017-02-13] MEDS: PROGESTERONE 150 MG PO SCH (21:08)
[2017-02-14] VITALS (10 sets, daily range): BP systolic 111–146; BP diastolic 61–84; PULSE 64–88; TEMP 36.7–37.1; O2SAT 93–100
[2017-02-14] MEDS: SODIUM CHLORIDE 0.9% 1000ML 1,000 ML IV SCH ×3 (03:51→15:00)
[2017-02-14] MEDS: ARMOUR THYROID 30 MG TAB PO SCH (05:39)
[2017-02-14] MEDS: DEXAMETHASONE INJ 4 MG in SYRINGE 0 ML IV SCH (05:53)
[2017-02-14] MEDS: MORPHINE SULFATE 1 MG/ML 50 ML PCA SYR IV PRN ×6 (06:07→20:25)
[2017-02-14] MEDS ORDERED: HYDROmorphone INJ 1 MG/ML SYR IV PRN ×2 (07:45→14:45)
[2017-02-14] MEDS ORDERED: ONDANSETRON INJ 2 MG/ML 2 ML VIAL IV PRN ×2 (07:45→13:45)
[2017-02-14] MEDS ORDERED: ATROPINE SULFATE 0.1 MG/ML 5ML SYR IV PRN (07:45)
[2017-02-14] MEDS ORDERED: EpHEDrine SULFATE INJ 50 MG/ML AMP IV PRN (07:45)
[2017-02-14] MEDS ORDERED: FENTANYL CITRATE INJ 50 MCG/1 ML 2 ML VIAL IV PRN (07:45)
[2017-02-14] MEDS: CHOLECALCIFEROL 1000 INTER.UNIT TAB PO SCH (09:00)
[2017-02-14] MEDS: LIDODERM (LIDOCAINE) PATCH 5% TD SCH (09:00)
[2017-02-14] MEDS: GABAPENTIN 300 MG CAP PO SCH ×3 (09:00→20:54)
[2017-02-14] MEDS: DOCUSATE SODIUM/SENNA 50/8.6MG TAB PO SCH ×2 (09:00→20:54)
[2017-02-14] MEDS: [UNRECOGNIZED DRUG - OTHER] EXT SCH ×2 (09:15→10:38)
[2017-02-14] MEDS: PANTOprazole INJ 40 MG in SYRINGE 0 ML IV SCH (11:00)
[2017-02-14] MEDS ORDERED: FENTANYL CITRATE INJ 50 MCG/1 ML 2 ML VIAL ONE ×3 (11:19→13:56)
[2017-02-14] MEDS ORDERED: MIDAZOLAM HCL 1 MG/ML 2ML VIAL ONE (11:19)
--- NOTE | 2017-02-14 11:25 | History & Physical Bridge Note ---
H&P Re-Evaluation Bridge Note: I have examined the patient, reviewed the History & Physical and in the interval since the performance of the History & Physical I have noted the following changes of clinical significance: No changes noted
[2017-02-14] MEDS ORDERED: CLINDAMYCIN 600 MG/54 ML D5W IV ONE (11:40)
[2017-02-14] MEDS ORDERED: SODIUM CHLORIDE 0.9% PF 50 ML VIAL ONE (11:48)
[2017-02-14] MEDS ORDERED: BACITRACIN 50000 UNIT VIAL ONE (11:48)
[2017-02-14] MEDS ORDERED: BUPIVACAINE/EPINEPHRINE 0.5% MPF 1:200,000 30 ML VIAL ONE (11:48)
[2017-02-14] MEDS ORDERED: NURSING VERBAL MED ORDER ONE (12:15)
[2017-02-14] MEDS ORDERED: HYDROmorphone INJ 2 MG/ML SYR/VIAL ONE ×3 (12:28→14:03)
[2017-02-14] MEDS ORDERED: PHENYLEPHRINE 100MCG/ML 5ML SYR ONE (12:37)
[2017-02-14] MEDS ORDERED: LIDOCAINE HCL 2% 2 ML VIAL (20MG/ML) ONE (12:37)
[2017-02-14] MEDS ORDERED: ROCURONIUM BROMIDE 10 MG/ML 5 ML VIAL ONE (12:37)
[2017-02-14] MEDS ORDERED: PROPOFOL IV EMULSION 10 MG/ML 20 ML VIAL IV ONE (12:37)
[2017-02-14] MEDS ORDERED: DEXAMETHASONE SOD INJ 4 MG/ML VIAL ONE (12:37)
[2017-02-14] MEDS ORDERED: CLINDAMYCIN 600 MG/54 ML D5W 54 ML IV SCH (13:00)
[2017-02-14] MEDS ORDERED: FLOSEAL HEMOSTATIC MATRIX 10ML TOP ONE (13:26)
--- NOTE | 2017-02-14 13:34 | [facility] Post Operative Brief Note ---
Immediate Operative Summary Operative Date Feb 14, 2017. Pre-Operative Diagnosis acute left sided lumbar radiculopathy Post-Operative Diagnosis acute left sided lumbar radiculopathy Procedure(s) Performed L4-L5 Decompression and Instrumented Fusion; L5-S1 Removal Instrumentation; Use of Fibrinet; Interbody Fusion with Application of Interbody Cage L4-[address] Devendra Vera Discount Clerk Surgeon(s) Ary Liz PA-C Estimated Blood Loss 100 ml Findings hnp/stenosis Specimens A. explanted hardware
[2017-02-14] MEDS ORDERED: ONDANSETRON INJ 2 MG/ML 2 ML VIAL ONE (13:37)
[2017-02-14] MEDS ORDERED: NEOSTIGMINE METHYLSULFATE 1 MG/ML 10ML VIAL ONE (13:37)
[2017-02-14] MEDS ORDERED: KETOROLAC TROMETHAMINE 30 MG/ML VIAL ONE (13:37)
[2017-02-14] MEDS ORDERED: GLYCOPYRROLATE INJ 0.2 MG/ML VIAL ONE (13:37)
[2017-02-14] MEDS ORDERED: NALOXONE HCL 0.4 MG/1 ML VIAL/CARP IV PRN (13:45)
[2017-02-14] MEDS ORDERED: hydrOXYzine HCL 25 MG TAB PO PRN (13:45)
[2017-02-14] MEDS ORDERED: SOD PHOSPHATE/SOD BIPHOSPHATE ENEMA 132 ML BTL PR PRN (13:45)
[2017-02-14] MEDS ORDERED: ACETAMINOPHEN IV 100 ML IV PRN (13:45)
[2017-02-14] MEDS ORDERED: DO NOT ADMINISTER FLU VACCINE PRN ×3 (13:45)
[2017-02-14] MEDS ORDERED: ALUMINUM/MAGNESIUM SUSP 30 ML UDC PO PRN (13:45)
[2017-02-14] MEDS ORDERED: METOCLOPRAMIDE HCL INJ 5 MG/ML 2 ML VIAL IV PRN (13:45)
[2017-02-14] MEDS ORDERED: BISACODYL 10 MG SUPP PR PRN (13:45)
[2017-02-14] MEDS ORDERED: MAGNESIUM HYDROXIDE SUSP 30 ML UDC PO PRN (13:45)
[2017-02-14] MEDS ORDERED: FAMOTIDINE 20 MG TAB PO PRN (13:45)
[2017-02-14] MEDS ORDERED: PROMETHAZINE HCL INJ 12.5 MG in SODIUM CHLORIDE 0.9% 50ML 50 ML IV PRN (13:45)
[2017-02-14] MEDS ORDERED: DO NOT ADMINISTER PNEUMOCOCCAL VACCINE PRN ×2 (13:45)
[2017-02-14] MEDS ORDERED: LORAZEPAM INJ 0.5 MG in SYRINGE 0 ML IV PRN (13:45)
[2017-02-14] MEDS ORDERED: ESMOLOL HCL 10 MG/ML 10 ML VIAL ONE (13:52)
--- NOTE | 2017-02-14 13:58 | DIAGNOSTIC IMAGING REPORT ---
LUMBAR SPINE, INTRAOPERATIVE FLUOROSCOPY HISTORY: L4-5 decompression and fusion. FLUOROSCOPY TIME: 9 seconds. FINDINGS: Intraoperative fluoroscopy was provided for the lumbar spine. 2 fluoroscopic spot images were obtained. L4-5 posterior decompression and fusion with pedicle screws and rods. The hardware appears intact. IMPRESSION: Fluoroscopy provided for a L4-5 posterior decompression and fusion. Electronically signed by: Ricky Langford M.D. 02/14/2017 1:57 PM Dictated Date/Time: 02/14/2017 1:56 PM
--- NOTE | 2017-02-14 14:31 | Anesthesiology Progress Note ---
Anesthesia Post Op Note Date & Time Feb 14, 2017 at 14:31 Vital Signs Pain Intensity: 4 Vital Signs Past 12 Hours Date Time Temp Pulse Resp B/P Pulse Ox O2 Delivery O2 Flow Rate FiO2 02/14/17 14:20 70 16 142/81 99 Nasal Cannula 4 02/14/17 14:10 82 16 144/87 99 Nasal Cannula 4 02/14/17 14:00 78 16 126/68 99 Nasal Cannula 4 02/14/17 13:50 36.8 75 16 130/82 99 Nasal Cannula 4 02/14/17 11:31 36.9 85 16 152/83 98 Room Air 02/14/17 08:14 97 Room Air 02/14/17 07:51 37.1 70 16 145/84 97 Room Air 02/14/17 07:36 Room Air 02/14/17 03:00 36.9 84 16 123/71 95 Room Air Notes Mental Status: alert / awake / arousable, participated in evaluation Pt Amnestic to Procedure: Yes Nausea / Vomiting: adequately controlled Pain: adequately controlled Airway Patency, RR, SpO2: stable & adequate BP & HR: stable & adequate Hydration State: stable & adequate Anesthetic Complications: no major complications apparent
[2017-02-14] MEDS: LACTATED RINGER'S 1000ML 1,000 ML IV SCH ×2 (14:58→20:19)
--- NOTE | 2017-02-14 15:13 | OPERATIVE REPORT ---
DATE OF OPERATION: 02/14/2017 PREOPERATIVE DIAGNOSES: Spinal stenosis and herniated nucleus pulposus, L4-L5. POSTOPERATIVE DIAGNOSES: Same. PROCEDURES PERFORMED: 1. Removal of posterior instrumentation, L5-S1. 2. Exploration of fusion, L5-S1. 3. Lumbar decompression, medial facetectomy, and excision of herniated free fragment, L4-L5. 4. Posterior spinal fusion, L4-L5. 5. Placement of posterior instrumentation using Orthros rods and screws, L4-L5. 6. Interbody fusion, L4-L5. 7. Placement of PEEK cage, 12 x 22 mm at L4-L5. 8. Placement of FiberNet and OsteoStrux in the posterior gutters and interbody space. 9. Placement of locally harvested morcellized autograft in the posterior gutters. SURGEON: Dr. Devendra Vera. HELICOPTER REPAIRER: Ary Liz PA-C. Due to the complex nature of the procedure, the entire surgery was performed with the certified surgical tech/first assistant of Ary Liz PA-C. The certified surgical tech/first assistant, under direct supervision, was involved in the actual performance of all aspects of the surgical procedure including hemostasis, tissue retraction and incision, instrument management, patient positioning, and wound closure. ANESTHESIA: General. DISPOSITION: The patient awakened and taken to PACU in stable condition. HISTORY OF PATIENT'S PROBLEMS: This is a 51-year-old female that presents with above-mentioned diagnoses. After failing an extensive course of nonoperative care, she elected to undergo the above-mentioned procedures. Risks, benefits, pros, cons, and alternatives were outlined in detail preoperatively. DESCRIPTION OF PROCEDURE: The patient was met with preoperatively, the case discussed and all questions were addressed. At that point, the patient was taken back to operative suite and after undergoing successful general intubation via department of anesthesia, she was placed in prone position on the [place] table atop Mahendra frame. All bony prominences were well padded and the eyes were inspected to ensure there was no external pressure placed upon them. At this point, lumbar spine was prepped and draped in normal sterile fashion. Sharp dissection with the assistance of Bovie cautery was performed down to and exposing the lamina and transverse processes of L4 and instrumentation at the L5-S1 level bilaterally. I then proceed with the hardware bilaterally exploring the fusion mass noting it to be intact. I then performed a complete laminectomy of L4 including medial facetectomies and removal of several large fragments of disk material that migrated caudally on the left. After this was complete, pedicle screws were then placed in L4-L5 bilaterally with the assistance of fluoroscopy and appropriate size radhika provisionally placed. In a transforaminal approach on the left, a complete diskectomy was performed, endplates curetted to subcortical bleeding bone and a 12 x 26 mm PEEK cage filled with Patricia bone grafting tapped into position. The rods were then rather compressed, locked into final position bilaterally and transverse processes of L4 and L5 burred to subcortical bleeding bone. FiberNet, OsteoStrux and locally harvested morcellized autograft were placed in the posterior gutters. Please note, the interbody cages filled with FiberNet and OsteoStrux, not Patricia. A 7 flat KIANA drain was then inserted. Incision was closed with 1-0 Vicryl in the fascia, 2-0 Vicryl subcutaneously, and 4-0 Monocryl for final skin closure. Steri-Strips and sterile dressing placed. The patient was awakened and taken to PACU in stable condition. I attest to the content of the Intraoperative Record and any orders documented therein. Any exceptio ns are noted below.
[2017-02-14] MEDS: DEXAMETHASONE INJ 6 MG in SYRINGE 0 ML IV SCH (16:18)
[2017-02-14] MEDS ORDERED: RXC5 PO (16:40)
--- NOTE | 2017-02-14 16:41 | Discharge Instructions ---
Discharge Instructions Date of Service Feb 14, 2017. Admission Reason for Admission: Intractable Low Back Pain Discharge Discharge Diagnosis / Problem: stenosis Discharge Goals Goal(s): Improve function Activity Recommendations Activity Limitations: per Instructions/Follow-up section . Instructions / Follow-Up Instructions / Follow-Up ACTIVITY RECOMMENDATIONS: SELF CARE INSTRUCTIONS AFTER THORACIC/LUMBAR FUSIONS 1. You may walk to your tolerance. It is good exercise for your legs and back. Expect some back and intermittent leg aches and pains. 2. You may perform "counter-top" level activities (make a sandwich, loly with a project, etc.). 3. No bending or lifting of more than 10 pounds or back twisting of any nature (roll like a log when turning in bed). 4. You may ride in a car for 20-30 minutes at a time. No driving until after your first visit with your doctor. 5. Frequent changes of position and restricting sitting to 30 minutes at a time will help limit the amount of back spasms and stiffness you may experience. 6. You may discontinue the use of ambulatory aids (cane, crutches, etc.) once your strength and confidence allow. 7. You may fruit inspector the shower and let water strike your incision when you arrive home at least once daily. Do not take a tub bath, sit in a hot tub or go into a swimming pool until after your first recheck in the office. SPECIAL CARE INSTRUCTIONS: VERY IMPORTANT TO READ AND REVIEW A. Your surgical incision has been closed with a cosmetic suture under the skin that will dissolve in about 6 weeks. In 14 days, you can use a pair of clean scissors and cut the suture that is left outside of the skin at the ends of your incision. 1. The small skin tapes can be removed 7 days after surgery if they have not fallen off by that point. 2. You may keep the wound open to air as much as possible to promote healing after post-op day number 5 unless told otherwise by your doctor. 3. If you think the wound looks like it is becoming infected (redness or worsening drainage) and/or you are experiencing fever, chill or worsening back pain and muscle spasms, contact the office so that we may evaluate you as soon as possible. B. Complications are uncommon, but please contact us if you have any signs or symptoms of: 1. wound infection (fever higher than 102.5 degrees F, redness, separation of wound, drainage, or increasing pain from the incision) 2. blood clots in legs (pain, swelling, redness and warmth in legs) 3. urinary tract infection (fever higher than 102.5 degrees F, burning upon urination or increased frequency of urination) 4. nerve problems (inability to walk on your toes or heels, numbness, loss of bowel or bladder control) 5. any other symptoms that concern you C. Please call the office at if you have any concerns or questions about your operation or recovery. D. No smoking! Smoking drastically decreases the chance of a solid fusion. E. Do not take any anti-inflammatory medications (Indocin, Advil, Motrin, Aspirin, Naprosyn, etc.) as these may inhibit the chance of a solid fusion. Tylenol is okay to take for pain. MANAGING PAIN AFTER SPINAL SURGERY 1. Narcotic medication is intended for short-term use and will be provided for surgical pain. Surgical pain usually lasts for a period of 4-6 weeks. Narcotic medication includes Percocet, Vicodin, Darvocet, Tylenol #3 or Lortab. 2. Longer-term pain is more appropriately treated with non-narcotic medication such as Tylenol ES. 3. Muscle spasm is not appropriately treated with narcotics. Muscle relaxers such as Soma, Flexeril or Skelaxin can be used along with Tylenol ES. 4. Remember that we all live with some "aches and pains". This is not unusual or uncommon after an injury or as we get older. a. Back pain is expected and may include muscle spasms for 4 to 6 weeks after surgery. The pain should gradually improve. If the pain worsens for no apparent reason, please contact the office. b. Intermittent leg pain may also be experienced and should not be concerned about unless it worsens for no apparent reason. If so, please contact the office. 5. We will provide appropriate medication within the normal guidelines of their prescribed use. We will also be very cautious and aware of potential abuse and extended duration of patients' medication needs. a. Pain medications are for your comfort and to assist with sleep and rest so that the tissue can heal. They are not provided in order to return to normal activity and should not be used through the day. To do so or worsening pain at night can result from ongoing tissue damage and development of tolerance to the prescribed medicine. 6. Please allow 2-3 days to process refills. Prescriptions will not be mailed but must be picked up at the office. FOLLOW UP VISIT: Keep your scheduled follow-up appointment. Any questions, please call the office at . Current Hospital Diet Patient's current hospital diet: Regular Diet Discharge Diet Recommended Diet: Regular Diet Procedures Procedures Performed: L4-L5 Decompression and Instrumented Fusion; L5-S1 Removal Instrumentation; Use of Fibrinet; Interbody Fusion with Application of Interbody Cage L4-5 Pending Studies Studies pending at discharge: no Medical Emergencies . Who to Call and When: Medical Emergencies: If at any time you feel your situation is an emergency, please call 911 immediately. . Non-Emergent Contact Non-Emergency issues call your: Primary Care Provider . "Provider Documentation" section prepared by Devendra Vera. VTE Core Measure Inpt VTE Proph given/why not?: Simin Song, SCD's
[2017-02-14] MEDS: LORAZEPAM 0.5 MG TAB PO PRN (18:10)
[2017-02-14] MEDS: ACETAMINOPHEN 500 MG TAB PO PRN (18:11)
--- NOTE | 2017-02-14 18:14 | Progress Note ---
Medicine Progress Note Date & Time of Visit: Feb 14, 2017 at 18:11. Subjective s/p Lumbar Spine Surgery resting in bed states pain is improving since returning to room Morphine NURSE SANE pump relieving pain no nausea, chest pain, dyspnea, palpitations denies other symptoms Objective Last 8 Hrs Date Time Temp Pulse Resp B/P Pulse Ox O2 Delivery O2 Flow Rate FiO2 02/14/17 17:59 36.7 84 16 144/73 95 Nasal Cannula 3.0 02/14/17 16:52 36.9 78 16 130/74 97 Nasal Cannula 3.0 02/14/17 16:10 Nasal Cannula 4.0 02/14/17 15:54 36.7 88 16 146/61 100 Nasal Cannula 3.0 02/14/17 15:27 36.9 64 16 131/80 100 Nasal Cannula 3.0 02/14/17 14:55 36.9 74 18 132/82 97 Nasal Cannula 3.0 02/14/17 14:54 Nasal Cannula 4.0 02/14/17 14:35 36.5 70 16 126/77 99 Nasal Cannula 4 02/14/17 14:20 70 16 142/81 99 Nasal Cannula 4 02/14/17 14:10 82 16 144/87 99 Nasal Cannula 4 02/14/17 14:00 78 16 126/68 99 Nasal Cannula 4 02/14/17 13:50 36.8 75 16 130/82 99 Nasal Cannula 4 02/14/17 11:31 36.9 85 16 152/83 98 Room Air Physical Exam: General-oriented x 3, not in distress, speaks in sentences with no effort Neck- no JVD Lungs- clear breath sounds bilaterally Heart- normal rate, regular rhythm; no murmurs Abdomen- normal bowel sounds, soft, nontender Extremities- no pretibial edema, no calf tenderness Neuro- alert, oriented x 3; left leg 5/5, sensation improving, no other gross deficits Skin- warm & dry Assessment & Plan INTRACTABLE LOW BACK PAIN DISC HERNIATION L4-L5 - patient with history of L5-S1 fusion in 2011; patient reports intermittent back pain since then however had sudden onset of severe left sided low back pain with radiation down the lateral side of the left leg with associated numbness; no loss of bowel or bladder function - MRI noted - 02/14/17 s/p L4-L5 Decompression and Instrumented Fusion; L5-S1 Removal Instrumentation; Use of Fibrinet; Interbody Fusion with Application of Interbody Cage L4-5 - continue Morphine NURSE SANE pump Decadron and Clinda, DVT prophylaxis per Ortho SVC - anticipate d/c to Rehab HYPOTHYROIDISM - TS H 0.2 FT4: normal - continue [place] thyroid HYPERTENSION - likely from pain also has white coat syndrome as per patient - improving - Clonidine PRN DVT PROPHYLAXIS Heparin SC q8h- held for surgery continue when ok with Ortho DISPO pending anticipate d/c to Rehab Current Inpatient Medications: Current Inpatient Medications Medications (Trade) Dose Ordered Sig/Mitra Route Start Time Stop Time Status Last Admin Dose Admin Cholecalciferol (Vitamin D Tab) 5,000 inter.unit QAM PO 02/11/17 09:00 03/13/17 08:59 02/13/17 08:35 5,000 INTER.UNIT Thyroid 30 mg 30 mg DAILYBB PO 02/11/17 06:00 03/13/17 06:59 02/13/17 05:16 30 MG Pantoprazole Sodium/Syringe (Protonix Inj/ Syringe) 10 ml @ 5 mls/min DAILY@11 IV 02/12/17 11:00 03/14/17 10:59 02/13/17 11:03 5 MLS/MIN Tramadol HCl (Ultram Tab) 50 mg Q6H PRN PO 02/11/17 17:00 03/13/17 16:59 02/11/17 20:34 50 MG Gabapentin 300 mg 300 mg TID PO 02/11/17 21:00 03/13/17 20:59 02/13/17 21:08 300 MG Sodium Chloride (Nss 1000ml) 1,000 ml @ 100 mls/hr Q10H IV 02/11/17 17:00 03/13/17 16:59 02/14/17 03:51 100 MLS/HR Senna/Docusate Sodium (Senokot S Tab) 1 tab QAM PO 02/12/17 09:00 03/14/17 08:59 02/13/17 08:34 1 TAB Magnesium Hydroxide (Milk Of Magnesia Susp) 30 ml Q6H PRN PO 02/11/17 17:00 03/13/17 16:59 02/11/17 20:34 30 ML Clonidine HCl (Catapres Tab) 0.1 mg Q6H PRN PO 02/11/17 17:00 03/13/17 16:59 Lidocaine (Lidoderm Patch 5%) 1 patch QAM TD 02/12/17 09:00 03/14/17 08:59 02/13/17 08:35 1 PATCH Miscellaneous (Remove Lidoderm Patch) 1 ea DAILY@21 N/A 02/11/17 21:00 03/13/17 20:59 02/13/17 21:08 1 EA Non-Formulary Medication (Non-Formulary Patient'S Own Med) 1 ea HS PO 02/12/17 21:00 03/14/17 20:59 02/13/17 21:08 1 EA Lactulose (Chronulac Syrup) 30 gm TID PRN PO 02/12/17 12:15 03/14/17 12:14 02/12/17 15:05 30 GM Non-Formulary Medication 1 ea QAM EXT 02/13/17 09:00 03/15/17 08:59 02/14/17 10:38 1 EA Naloxone HCl (Narcan Inj) 0.1 mg Q5M PRN IV 02/13/17 11:45 02/15/17 06:00 Morphine Sulfate 50 mg 50 mg PRN PRN IV 02/13/17 11:45 02/15/17 06:00 02/14/17 15:08 50 MG Sodium Chloride 1,000 ml @ 15 mls/hr Q24H IV 02/13/17 11:45 02/15/17 06:00 Clindamycin Phosphate 54 ml @ 100 mls/hr TODAY@1300 IV 02/14/17 13:00 02/15/17 12:59 Clindamycin Phosphate 600 mg/ Dextrose 54 ml @ 100 mls/hr Q8@0400,1200,2000 IV 02/14/17 20:00 02/15/17 04:33 Dexamethasone Sodium Phosphate 6 mg/Syringe 1.5 ml @ 1 mls/min Q8@0000,0800,1600 IV 02/14/17 16:00 02/15/17 08:02 02/14/17 16:18 1 MLS/MIN Promethazine HCl/ Sodium Chloride (Phenergan Inj/ Nss 50ml) 50.5 ml @ 202 mls/hr Q6H PRN IV 02/14/17 13:45 03/16/17 13:44 Ondansetron HCl (Zofran Inj) 4 mg Q6H PRN IV 02/14/17 13:45 03/16/17 13:44 Metoclopramide HCl (Reglan Inj) 10 mg Q6H PRN IV 02/14/17 13:45 03/16/17 13:44 Lorazepam 0.5 mg 0.5 mg Q8H PRN PO 02/14/17 13:45 03/16/17 13:44 Lorazepam/Syringe (Ativan Inj/ Syringe) 0.25 ml @ 1 mls/min Q8H PRN IV 02/14/17 13:45 03/16/17 13:44 Pneumococcal Polysaccharide Vaccine 1 ea PRN PRN N/A 02/14/17 13:45 03/16/17 13:44 Influenza Virus Vacc Triv Types A&B 1 ea PRN PRN N/A 02/14/17 13:45 03/16/17 13:44 Polyethylene (Miralax Powder Packet) 17 gm Q6 PO 02/16/17 06:00 03/18/17 05:59 Bisacodyl (Dulcolax Supp) 10 mg DAILY PRN NM 02/14/17 13:45 03/16/17 13:44 Magnesium Hydroxide (Milk Of Magnesia Susp) 30 ml DAILY PRN PO 02/14/17 13:45 03/16/17 13:44 Hydromorphone HCl (Dilaudid Inj) 0.5 mg Q3H PRN IV 02/15/17 06:00 03/01/17 05:59 Oxycodone HCl 5-10mg prn moderate to sev... Q4H PRN PO 02/15/17 06:00 03/01/17 05:59 Lactated Ringer's (Lr 1000ml) 1,000 ml @ 150 mls/hr Q6H40M IV 02/14/17 13:34 03/16/17 13:33 02/14/17 14:58 150 MLS/HR Acetaminophen 1000 mg 1,000 mg Q8H PRN PO 02/14/17 13:45 03/16/17 13:44 Acetaminophen (Ofirmev Iv) 100 ml @ 400 mls/hr Q8H PRN IV 02/14/17 13:45 03/16/17 13:44 Naloxone HCl (Narcan Inj) 0.1 mg Q5M PRN IV 02/14/17 13:45 03/16/17 13:44 Senna/Docusate Sodium (Senokot S Tab) 2 tab HS PO 02/14/17 21:00 03/16/17 20:59 Sodium Biphosphate/ Sodium Phosphate (Fleet Enema) 132 ml ONE PRN NM 02/14/17 13:45 03/16/17 13:44 Hydroxyzine HCl (Vistaril Tab) 25 mg Q8H PRN PO 02/14/17 13:45 03/16/17 13:44 Al Hydroxide/Mg Hydroxide (Maalox Susp) 30 ml Q6H PRN PO 02/14/17 13:45 03/16/17 13:44 Famotidine (Pepcid Tab) 20 mg Q12 PRN PO 02/14/17 13:45 03/16/17 13:44 Diphenhydramine HCl (Benadryl Cap) 25 mg Q6H PRN PO 02/14/17 13:45 03/16/17 13:44 Miscellaneous Information (Discontinue NURSE SANE) 1 ea 0600 N/A 02/15/17 06:00 02/15/17 06:01 Hydromorphone HCl (Dilaudid Inj) 1 mg Q3H PRN IV 02/14/17 14:45 02/28/17 14:44 Future hold
[2017-02-14] MEDS: CLINDAMYCIN IV 600 MG in DEXTROSE 5% ADD-VANTAGE 50ML 50 ML IV SCH (20:19)
[2017-02-14] MEDS: PROGESTERONE 150 MG PO SCH (20:54)
[2017-02-15] MEDS: SODIUM CHLORIDE 0.9% 1000ML 1,000 ML IV SCH (00:21)
[2017-02-15] MEDS: DEXAMETHASONE INJ 6 MG in SYRINGE 0 ML IV SCH ×2 (00:23→08:00)
[2017-02-15] MEDS: LACTATED RINGER'S 1000ML 1,000 ML IV SCH (03:37)
[2017-02-15] MEDS: CLINDAMYCIN IV 600 MG in DEXTROSE 5% ADD-VANTAGE 50ML 50 ML IV SCH (03:37)
[2017-02-15 03:50] VITALS: BP 128/74; PULSE 86; TEMP 36.7; O2SAT 95
[2017-02-15] MEDS ORDERED: HYDROmorphone INJ 0.5 MG/0.5 ML SYR IV PRN (06:00)
[2017-02-15] MEDS ORDERED: DC PCA SCH (06:00)
[2017-02-15] MEDS: ARMOUR THYROID 30 MG TAB PO SCH (06:11)
[2017-02-15 06:15] LABS: BASO % 0.1 %; BASO ABS # 0.01 K/uL (0-0.2); COMPLETE YES; HEMATOCRIT 36.6 % (37-47); IG% 0.5 %; LYMPH % 4.3 %; LYMPH ABS # 0.71 K/uL (1.2-3.4); MEAN CELL VOLUME 92.7 fL (80-100); MEAN CORPUSCULAR HEMOGLOBIN 30.6 pg (25-34); MEAN CORPUSCULAR HGB CONC 33.1 g/dl (32-36); MEAN PLATELET VOLUME 9.3 fL (7.4-10.4); MONO % 8.6 %; NEUT % 86.5 %; PLATELET COUNT 272 K/uL (130-400); RED BLOOD COUNT 3.95 M/uL (4.2-5.4); WHITE BLOOD COUNT 16.62 K/uL (4.8-10.8)
[2017-02-15] MEDS ORDERED: NURSING DECISION MEDICATION ORDER SCH (06:45)
[2017-02-15 06:50] VITALS: BP 117/73; PULSE 70; TEMP 36.8; O2SAT 92
[2017-02-15 06:51] LABS: BUN/CREATININE RATIO 22.8 (10-20); CALCIUM 8.6 mg/dl (8.5-10.1); CREATININE 0.69 mg/dl (0.60-1.20); POTASSIUM 4.2 mmol/L (3.5-5.1)
--- NOTE | 2017-02-15 07:50 | Anesthesiology Progress Note ---
Anesthesia Post Op Note Date & Time Feb 15, 2017 at 07:50 Vital Signs Pain Intensity: 3.0 Vital Signs Past 12 Hours Date Time Temp Pulse Resp B/P Pulse Ox O2 Delivery O2 Flow Rate FiO2 02/15/17 06:50 36.8 70 18 117/73 92 Room Air 02/15/17 03:50 36.7 86 16 128/74 95 Nasal Cannula 2.0 02/14/17 23:40 37.0 87 16 111/66 96 Nasal Cannula 2.0 Notes Mental Status: alert / awake / arousable, participated in evaluation Pt Amnestic to Procedure: Yes Nausea / Vomiting: adequately controlled Pain: adequately controlled Airway Patency, RR, SpO2: stable & adequate BP & HR: stable & adequate Hydration State: stable & adequate Anesthetic Complications: no major complications apparent
[2017-02-15] MEDS: OXYCODONE HCL IR 5 MG TAB (IMMEDIATE RELEASE) PO PRN ×4 (08:00→20:56)
[2017-02-15] MEDS: [UNRECOGNIZED DRUG - OTHER] EXT SCH (08:53)
[2017-02-15] MEDS: DOCUSATE SODIUM/SENNA 50/8.6MG TAB PO SCH ×2 (08:53→20:56)
[2017-02-15] MEDS: GABAPENTIN 300 MG CAP PO SCH ×3 (08:53→20:56)
[2017-02-15] MEDS: CHOLECALCIFEROL 1000 INTER.UNIT TAB PO SCH (08:54)
[2017-02-15] MEDS: LIDODERM (LIDOCAINE) PATCH 5% TD SCH (08:54)
[2017-02-15 10:32] VITALS: BP 137/85; PULSE 107; O2SAT 96
[2017-02-15] MEDS: LORAZEPAM 0.5 MG TAB PO PRN ×2 (10:36→20:56)
[2017-02-15] MEDS: ACETAMINOPHEN 500 MG TAB PO PRN (10:36)
[2017-02-15] MEDS: PANTOprazole SOD 40 MG TAB PO SCH (10:36)
--- NOTE | 2017-02-15 12:05 | Progress Note ---
Internal Med Progress Note Date of Service: Feb 15, 2017. Provider Documentation: SUBJECTIVE: Patient is doing well. Pain is controlled with pain medications No fever, chills, nausea, vomiting, chest pain, sob. Difficult stick, so no IV access, on PO medications OBJECTIVE: Vital Signs-as noted below Exam: General-oriented x 3, not in distress, speaks in sentences with no effort Neck- no JVD Lungs- clear breath sounds bilaterally Heart- normal rate, regular rhythm; no murmurs Abdomen- normal bowel sounds, soft, nontender Extremities- no pretibial edema, no calf tenderness Neuro- alert, oriented x 3; left leg 5/5, sensation improving, no other gross deficits Back - S/P Lumbar surgery Lab data as noted below. ASSESSMENT & PLAN: INTRACTABLE LOW BACK PAIN : DISC HERNIATION L4-L5 Patient with history of L5-S1 fusion in 2011; patient reported intermittent back pain since then however had sudden onset of severe left sided low back pain with radiation down the lateral side of the left leg with associated numbness; no loss of bowel or bladder function -S/P L4-L5 Decompression and Instrumented Fusion; L5-S1 Removal Instrumentation ; Use of Fibrinet; Interbody Fusion with Application of Interbody Cage L4-5 on 02/14/17 -Off IV pain meds/Pump---> now on PO pain medications as no IV (difficult stick) -Mx per Ortho / Spine team HYPOTHYROIDISM - TS H 0.2 FT4: normal - continue [place] thyroid HYPERTENSION - Likely secondary to pain - Clonidine PRN DVT/GI PROPHYLAXIS SCDS/TEDS per ortho DISPO Discharge- will defer to ortho team Vital Signs: Date Time Temp Pulse Resp B/P Pulse Ox O2 Delivery O2 Flow Rate FiO2 02/15/17 10:32 107 96 02/15/17 08:08 Room Air 02/15/17 06:50 36.8 70 18 117/73 92 Room Air 02/15/17 03:50 36.7 86 16 128/74 95 Nasal Cannula 2.0 02/14/17 23:40 37.0 87 16 111/66 96 Nasal Cannula 2.0 02/14/17 19:45 Nasal Cannula 4.0 02/14/17 19:19 36.9 69 16 132/76 93 Room Air 02/14/17 17:59 36.7 84 16 144/73 95 Nasal Cannula 3.0 02/14/17 16:52 36.9 78 16 130/74 97 Nasal Cannula 3.0 02/14/17 16:10 Nasal Cannula 4.0 02/14/17 15:54 36.7 88 16 146/61 100 Nasal Cannula 3.0 02/14/17 15:27 36.9 64 16 131/80 100 Nasal Cannula 3.0 02/14/17 14:55 36.9 74 18 132/82 97 Nasal Cannula 3.0 02/14/17 14:54 Nasal Cannula 4.0 02/14/17 14:35 36.5 70 16 126/77 99 Nasal Cannula 4 02/14/17 14:20 70 16 142/81 99 Nasal Cannula 4 02/14/17 14:10 82 16 144/87 99 Nasal Cannula 4 02/14/17 14:00 78 16 126/68 99 Nasal Cannula 4 02/14/17 13:50 36.8 75 16 130/82 99 Nasal Cannula 4 Lab Results: Results Past 24 Hours Test 02/15/17 05:45 Range/Units White Blood Count 16.62 4.8-10.8 K/uL Red Blood Count 3.95 4.2-5.4 M/uL Hemoglobin 12.1 12.0-16.0 g/dL Hematocrit 36.6 37-47 % Mean Corpuscular Volume 92.7 80-100 fL Mean Corpuscular Hemoglobin 30.6 25-34 pg Mean Corpuscular Hemoglobin Concent 33.1 32-36 g/dl Platelet Count 272 130-400 K/uL Mean Platelet Volume 9.3 7.4-10.4 fL Neutrophils (%) (Auto) 86.5 % Lymphocytes (%) (Auto) 4.3 % Monocytes (%) (Auto) 8.6 % Eosinophils (%) (Auto) 0.0 % Basophils (%) (Auto) 0.1 % Neutrophils # (Auto) 14.38 1.4-6.5 K/uL Lymphocytes # (Auto) 0.71 1.2-3.4 K/uL Monocytes # (Auto) 1.43 0.11-0.59 K/uL Eosinophils # (Auto) 0.00 0-0.5 K/uL Basophils # (Auto) 0.01 0-0.2 K/uL RDW Standard Deviation 44.2 36.4-46.3 fL RDW Coefficient of Variation 13.0 11.5-14.5 % Immature Granulocyte % (Auto) 0.5 % Immature Granulocyte # (Auto) 0.09 0.00-0.02 K/uL Sodium Level 142 136-145 mmol/L Potassium Level 4.2 3.5-5.1 mmol/L Chloride Level 106 98-107 mmol/L Carbon Dioxide Level 28 21-32 mmol/L Anion Gap 8.0 3-11 mmol/L Blood Urea Nitrogen 16 7-18 mg/dl Creatinine 0.69 0.60-1.20 mg/dl Est Creatinine Clear Calc Drug Dose 107.4 ml/min Estimated GFR () 116.8 Estimated GFR (Non- 100.8 BUN/Creatinine Ratio 22.8 10-20 Random Glucose 120 70-99 mg/dl Calcium Level 8.6 8.5-10.1 mg/dl
--- NOTE | 2017-02-15 12:49 | PROGRESS NOTE ---
DATE: 02/15/2017 DATE: 02/15/2017. SUBJECTIVE: Postop day 1. Back pain controlled. Leg pain markedly improved. Vital signs stable. T-max 36.8. KIANA drained 80 mL. Hematocrit this a.m. is 36.6. OBJECTIVE: On exam, she has improved strength to testing. Appears comfortable. ASSESSMENT: Status post lumbar decompression and fusion. PLAN: At this time, will initiate and continue physical therapy, advance her bowel regimen and anticipate possible home tomorrow.
[2017-02-15 15:06] VITALS: BP 145/83; PULSE 114; TEMP 36.8; O2SAT 96
[2017-02-15] MEDS: LACTULOSE SYRUP 30 GM/45 ML UDP PO PRN (16:26)
[2017-02-15] MEDS: MAGNESIUM HYDROXIDE SUSP 30 ML UDC PO PRN (20:56)
[2017-02-15] MEDS: PROGESTERONE 150 MG PO SCH (20:58)
[2017-02-15 22:55] VITALS: BP 121/73; PULSE 82; TEMP 36.8; O2SAT 93
[2017-02-16] VITALS (8 sets, daily range): BP systolic 107–125; BP diastolic 67–80; PULSE 82–105; TEMP 36.7–37.2; O2SAT 93–97
[2017-02-16] MEDS: TRAMADOL HCL 50 MG TAB PO PRN (00:13)
[2017-02-16] MEDS: OXYCODONE HCL IR 5 MG TAB (IMMEDIATE RELEASE) PO PRN (01:04)
[2017-02-16] MEDS: POLYETHYLENE (MIRALAX) 17 GM PACK PO SCH ×4 (06:41→23:32)
[2017-02-16] MEDS: ARMOUR THYROID 30 MG TAB PO SCH (06:45)
[2017-02-16] MEDS: LORAZEPAM 0.5 MG TAB PO PRN (06:45)
[2017-02-16] MEDS: LIDODERM (LIDOCAINE) PATCH 5% TD SCH (07:09)
[2017-02-16] MEDS: GABAPENTIN 300 MG CAP PO SCH ×3 (09:30→21:19)
[2017-02-16] MEDS: DOCUSATE SODIUM/SENNA 50/8.6MG TAB PO SCH ×2 (09:31→21:20)
[2017-02-16] MEDS: PANTOprazole SOD 40 MG TAB PO SCH (09:31)
[2017-02-16] MEDS: CHOLECALCIFEROL 1000 INTER.UNIT TAB PO SCH (09:31)
[2017-02-16] MEDS: [UNRECOGNIZED DRUG - OTHER] EXT SCH (09:32)
[2017-02-16] MEDS ORDERED: KETOROLAC TROMETHAMINE 30 MG/ML VIAL IV STA (12:31)
[2017-02-16] MEDS: HYDROCODONE/ACETAMINOPHEN 7.5/325MG TAB PO PRN ×3 (12:40→22:40)
[2017-02-16] MEDS ORDERED: KETOROLAC TROMETHAMINE 30 MG/ML VIAL IV PRN (12:45)
--- NOTE | 2017-02-16 13:54 | PROGRESS NOTE ---
DATE: 02/16/2017 SUBJECTIVE: Postop day #2. Back pain controlled. Leg pain improved. Struggling with nausea and some back pain but controlled. Vital signs stable. T-max 37.2. KIANA drained 70 mL. Bowel movements x2 today. PHYSICAL EXAMINATION: She has good strength to testing. ASSESSMENT: Status post lumbar decompression and fusion. PLAN: At this time, will maintain the KIANA drain another day. Anticipate home tomorrow.
--- NOTE | 2017-02-16 14:13 | Progress Note ---
Internal Med Progress Note Date of Service: Feb 16, 2017. Provider Documentation: SUBJECTIVE: Patient is doing well. Pain is better controlled with vicodine. Had a BM today after enema. No fever, chills, nausea, vomiting, chest pain, sob. Difficult stick, so no IV access, on PO medications OBJECTIVE: Vital Signs-as noted below Exam: General-oriented x 3, not in distress, speaks in sentences with no effort Neck- no JVD Lungs- clear breath sounds bilaterally Heart- normal rate, regular rhythm; no murmurs Abdomen- normal bowel sounds, soft, nontender Extremities- no pretibial edema, no calf tenderness Back - S/P Lumbar surgery Lab data as noted below. ASSESSMENT & PLAN: INTRACTABLE LOW BACK PAIN : DISC HERNIATION L4-L5 Patient with history of L5-S1 fusion in 2011; patient reported intermittent back pain since then however had sudden onset of severe left sided low back pain with radiation down the lateral side of the left leg with associated numbness; no loss of bowel or bladder function -S/P L4-L5 Decompression and Instrumented Fusion; L5-S1 Removal Instrumentation ; Use of Fibrinet; Interbody Fusion with Application of Interbody Cage L4-5 on 02/14/17 -Off IV pain meds/Pump---> now on PO pain medications as no IV (difficult stick) -Mx per Ortho / Spine team HYPOTHYROIDISM - TS H 0.2 FT4: normal - continue [place] thyroid HYPERTENSION - Likely secondary to pain - Clonidine PRN CONSTIPATION Had a BM today after enema DVT/GI PROPHYLAXIS SCDS/TEDS per ortho DISPO Discharge- will defer to ortho team Vital Signs: Date Time Temp Pulse Resp B/P Pulse Ox O2 Delivery O2 Flow Rate FiO2 02/16/17 11:37 37.2 98 19 122/68 96 Room Air 02/16/17 09:57 101 97 02/16/17 09:23 96 Room Air 02/16/17 08:12 Room Air 02/16/17 08:06 37.1 82 17 120/68 96 Room Air 02/16/17 06:08 36.9 89 16 125/80 95 Room Air 02/16/17 00:05 Room Air 02/15/17 22:55 36.8 82 16 121/73 93 Room Air 02/15/17 15:06 36.8 114 18 145/83 96 Room Air 02/15/17 15:05 Room Air
[2017-02-16] MEDS: PROGESTERONE 150 MG PO SCH (21:19)
[2017-02-17] MEDS: HYDROCODONE/ACETAMINOPHEN 7.5/325MG TAB PO PRN ×3 (03:08→12:58)
[2017-02-17] MEDS: POLYETHYLENE (MIRALAX) 17 GM PACK PO SCH ×2 (05:51→12:00)
[2017-02-17] MEDS: ARMOUR THYROID 30 MG TAB PO SCH (05:52)
[2017-02-17 08:10] VITALS: BP 128/85; PULSE 91; TEMP 36.8; O2SAT 98
[2017-02-17 08:41] VITALS: O2SAT 94
[2017-02-17] MEDS: GABAPENTIN 300 MG CAP PO SCH (08:41)
[2017-02-17] MEDS: PANTOprazole SOD 40 MG TAB PO SCH (08:42)
[2017-02-17] MEDS: DOCUSATE SODIUM/SENNA 50/8.6MG TAB PO SCH (08:42)
[2017-02-17] MEDS: [UNRECOGNIZED DRUG - OTHER] EXT SCH (08:42)
[2017-02-17] MEDS: CHOLECALCIFEROL 1000 INTER.UNIT TAB PO SCH (08:43)
[2017-02-17] MEDS: LIDODERM (LIDOCAINE) PATCH 5% TD SCH (08:43)
[2017-02-17 09:30] VITALS: BP 96/68; PULSE 125
[2017-02-17 10:35] VITALS: BP 128/85; PULSE 91; TEMP 36.8; O2SAT 94
[2017-02-17 12:11] VITALS: BP 122/77; PULSE 88; TEMP 36.8; O2SAT 97
--- NOTE | 2017-02-17 13:03 | Progress Note ---
Internal Med Progress Note Date of Service: Feb 17, 2017. Provider Documentation: SUBJECTIVE: Patient is doing well. Pain is better controlled with vicodin Had a BM today after enema yesterday No fever, chills, nausea, vomiting, chest pain, sob. Difficult stick, so no IV access, on PO medications Eager to be discharged OBJECTIVE: Vital Signs-as noted below Exam: General-oriented x 3, not in distress, speaks in sentences with no effort Neck- no JVD Lungs- clear breath sounds bilaterally Heart- normal rate, regular rhythm; no murmurs Abdomen- normal bowel sounds, soft, nontender Extremities- no pretibial edema, no calf tenderness Back - S/P Lumbar surgery Lab data as noted below. ASSESSMENT & PLAN: INTRACTABLE LOW BACK PAIN : DISC HERNIATION L4-L5 Patient with history of L5-S1 fusion in 2011; patient reported intermittent back pain since then however had sudden onset of severe left sided low back pain with radiation down the lateral side of the left leg with associated numbness; no loss of bowel or bladder function -S/P L4-L5 Decompression and Instrumented Fusion; L5-S1 Removal Instrumentation ; Use of Fibrinet; Interbody Fusion with Application of Interbody Cage L4-5 on 02/14/17 -Off IV pain meds/Pump---> now on PO pain medications as no IV (difficult stick) -Mx per Ortho / Spine team HYPOTHYROIDISM - TS H 0.2 FT4: normal - continue [place] thyroid HYPERTENSION - Likely secondary to pain - Clonidine PRN CONSTIPATION Had a BM today after enema yesterday DVT/GI PROPHYLAXIS SCDS/TEDS per ortho DISPO Discharged by ortho team today Vital Signs: Date Time Temp Pulse Resp B/P Pulse Ox O2 Delivery O2 Flow Rate FiO2 02/17/17 12:11 36.8 88 16 122/77 97 Room Air 02/17/17 10:35 36.8 91 18 94 Room Air 02/17/17 08:41 94 Room Air 02/17/17 08:10 36.8 91 18 128/85 98 Room Air 02/17/17 07:47 Room Air 02/16/17 23:30 Room Air 02/16/17 22:55 36.7 82 16 111/70 94 Room Air 02/16/17 15:30 93 Room Air 02/16/17 15:18 37.1 105 16 107/67 93 Room Air
--- NOTE | 2017-02-17 13:06 | Discharge Summary ---
Discharge Summary Date of Service Feb 17, 2017. Discharge Summary Admission Date: Feb 14, 2017 at 09:13 Discharge Date: Feb 17, 2017 Discharge Disposition: Home with services Principal Diagnosis: 1. Lumbar disc herniation L4-L5 S/P Lumbar surgery Secondary Diagnoses/Problems: 1. Hypertension 2. Hypothyroidism 3. Constipation Procedures: L4-L5 Decompression and Instrumented Fusion; L5-S1 Removal Instrumentation; Use of Fibrinet; Interbody Fusion with Application of Interbody Cage L4-[address] Vera Consultations: Orthopedics Medication Reconciliation New Medications: Oxycodone HCl (Oxycodone HCl) 5 Mg Tab 5-10 MG PO Q4H PRN for Moderate - severe pain for 30 Days, #90 TAB Continued Medications: Cholecalciferol (Vitamin D) 1,000 Inter.unit Tab 5000 INTER.UNIT PO QAM, TAB Melatonin (Kp Melatonin) 3 Mg Tab 1 TAB PO HS for 30 Days, #30 TAB Progesterone (Prometrium) 100 Mg Cap 200 MG PO DAILY, CAP Thyroid ([place] Thyroid) 30 Mg Tab 30 MG PO QAM for 30 Days, #30 TAB 5 Refills [adrenevive] () 2 CAP PO BID [Estrogen Cream] () 0.5 ML TOP HS Admission Information HPI (per Admitting provider): 51 year old female who presents to the ER with severe low back pain radiating into the left leg. Patient has history of prior lumbar fusion at L5-S1 in 2011. Patient reports intermittent issues with back pain since that times. She was seen at the spine orthopedic office a few months ago for increased pain. She had xrays that were unremarkable and was advised to try chiropractic and massage therapy. Patient reports she initially was having improvement. This morning patient stood up from her desk and had sudden onset of left lower back pain that was radiating into the left hip and down the outer part of left her leg. It caused her to fall to the ground. She reports associated numbness in the left leg. No loss of bowel or bladder function. She denies chest pain and shortness of breath. No lightheadedness, dizziness, diaphoresis, or syncope. She denies abdominal pain, nausea, vomiting, and diarrhea. No fever or chills. She denies urinary symptoms. In the ER, lumbar XR is unremarkable. Patient received Morphine, Dilaudid, Toradol, Decadron, and Zofran and continues to have pain. Physical Exam (per Admitting): General Appearance: no apparent distress Head: normocephalic Eyes: normal inspection ENT: hearing grossly normal Neck: supple, no JVD Respiratory/Chest: lungs clear, normal breath sounds, no respiratory distress Cardiovascular: regular rate, rhythm, no edema, normal peripheral pulses Abdomen/GI: normal bowel sounds, non tender, soft Extremities/Musculoskelatal: + pertinent finding (positive straight leg test on left ) Neurologic/Psych: no motor/sensory deficits, alert, normal mood/affect, oriented x 3 Skin: normal color, warm/dry Hospital Course DISC HERNIATION L4-L5 S/P LUMBAR SURGERY Patient with history of L5-S1 fusion in 2011; patient reported intermittent back pain since then however had sudden onset of severe left sided low back pain with radiation down the lateral side of the left leg with associated numbness; no loss of bowel or bladder function -S/P L4-L5 Decompression and Instrumented Fusion; L5-S1 Removal Instrumentation ; Use of Fibrinet; Interbody Fusion with Application of Interbody Cage L4-5 on 02/14/17 -Off IV pain meds/Pump---> now on PO pain medications as no IV (difficult stick) -Mx per Ortho / Spine team HYPOTHYROIDISM - TS H 0.2 FT4: normal - continue [place] thyroid HYPERTENSION - Likely secondary to pain - Clonidine PRN CONSTIPATION Had a BM today after enema yesterday DVT/GI PROPHYLAXIS SCDS/TEDS per ortho DISPO Discharged by ortho team today Total time spent on discharge = 28 minutes This includes examination of the patient, discharge planning, medication reconciliation, and communication with other providers. Discharge Instructions Activity Recommendations Activity Limitations: per Instructions/Follow-up section (per ortho instructions) . Current Hospital Diet Patient's current hospital diet: Regular Diet Discharge Diet Recommended Diet: AHA Diet (Heart Healthy), Low Sodium Diet (2gm Na) Procedures Procedures Performed: L4-L5 Decompression and Instrumented Fusion; L5-S1 Removal Instrumentation; Use of Fibrinet; Interbody Fusion with Application of Interbody Cage L4-5 Pending Studies Studies pending at discharge: no Medical Emergencies . Who to Call and When: Medical Emergencies: If at any time you feel your situation is an emergency, please call 911 immediately. . Non-Emergent Contact Non-Emergency issues call your: Specialist (ortho pedics) . . "Provider Documentation" section prepared by Yanci Arrieta. VTE Core Measure Inpt VTE Proph given/why not?: Simin Song, SCD's
[2017-02-17] MEDS ORDERED: HYDR-3983 PO (13:10)
--- NOTE | 2017-02-17 14:09 | DISCHARGE SUMMARY ---
PRINCIPAL DIAGNOSIS: Herniated nucleus pulposus, L4-L5. HOSPITAL COURSE FOLLOWS: On 02/10, she was admitted for pain control and after failing to respond to medication, we elected to undergo a lumbar decompression and fusion. Surgery was on 02/14, she tolerated this well. Postoperatively, up and ambulatory, normal patterns. KIANA drain decreasing appropriately. Subsequently on 02/17, discharged home. Discharge orders and instructions found on the chart for further review.
[2017-08-10] MEDS ORDERED: CHOL1CAP79 PO (08:01)
[2017-08-10] MEDS ORDERED: THYR1TAB PO (08:01)
[2017-08-10] MEDS ORDERED: ESTRADIOL TOP (08:01)
[2017-08-10] MEDS ORDERED: [UNRECOGNIZED DRUG - OTHER] TOP (08:01)
[2017-08-10] MEDS ORDERED: [UNRECOGNIZED DRUG - CODE] PO (08:03)
[2017-08-10] MEDS ORDERED: [UNRECOGNIZED DRUG - OTHER] PO (08:04)
[2017-08-12] MEDS ORDERED: PHEN-775 PO (08:01)
[2017-08-12] MEDS ORDERED: CEPH500C2 PO (08:01)
[2017-08-12] MEDS ORDERED: OXYC7.5T65 PO (08:01)
[2017-08-16] MEDS ORDERED: CPR500 PO (09:11)
[2017-08-16] MEDS ORDERED: PHEN-775 PO (09:11)
== END 2017-02-17 13:25 | disposition home or self-care (01) | DRG 460 ==
LOC: ENRESERVDT → ENRESERVTM → C.EDB 13:29 → C.3E 15:40 → OBSVTOIN 02-14 09:13
PROVIDERS: ADMIT Internal Medicine; ATTEND Internal Medicine
PROC: 0QP104Z Removal of Internal Fixation Device from Sacrum, Open Approach (ICD-10-PCS; principal; 2017-02-14 07:00)
PROC: 0ST20ZZ Resection of Lumbar Vertebral Disc, Open Approach (ICD-10-PCS; principal; 2017-02-14 07:00)
PROC: 01NB0ZZ Release Lumbar Nerve, Open Approach (ICD-10-PCS; principal; 2017-02-14 07:00)
PROC: 0SG00AJ Fusion of Lumbar Vertebral Joint with Interbody Fusion Device, Posterior Approach, Anterior Column, Open Approach (ICD-10-PCS; principal; 2017-02-14 07:00)
PROC: 0SG0071 Fusion of Lumbar Vertebral Joint with Autologous Tissue Substitute, Posterior Approach, Posterior Column, Open Approach (ICD-10-PCS; principal; 2017-02-14 07:00)
PROC: 0QP004Z Removal of Internal Fixation Device from Lumbar Vertebra, Open Approach (ICD-10-PCS; principal; 2017-02-14 07:00)
DX: M51.16 Intervertebral disc disorders with radiculopathy, lumbar region (principal); M48.06 Spinal stenosis, lumbar region; K21.9 Gastro-esophageal reflux disease without esophagitis; E03.9 Hypothyroidism, unspecified; K59.00 Constipation, unspecified; I10 Essential (primary) hypertension; Z98.1 Arthrodesis status; Z88.0 Allergy status to penicillin

== ENCOUNTER 2017-08-06 05:16 | Emergency (ER) | payer BC ==
[~2017-08-06] VITALS: Ht 167.6 cm; Wt 86.8 kg
[~2017-08-06 05:16] MED LIST changes: +HYDR-3983 PO; -IBUP-103 PO; +RXC5 PO; -SULF800T23 PO
[2017-08-06 05:20] VITALS: TEMP 37; Ht 167.6 cm; Wt 86.8 kg
[2017-08-06] MEDS ORDERED: KETOROLAC TROMETHAMINE 30 MG/ML VIAL IV STA (05:40)
[2017-08-06] MEDS ORDERED: ONDANSETRON INJ 2 MG/ML 2 ML VIAL IV STA (05:40)
[2017-08-06] MEDS ORDERED: MoRPHine SULFATE 10 MG/ML CARP/VIAL IV STA (05:40)
[2017-08-06] MEDS ORDERED: SODIUM CHLORIDE 0.9% 1000ML 1,000 ML IV ONE (05:45)
[2017-08-06 06:06] LABS: BASO % 0.2 %; BASO ABS # 0.03 K/uL (0-0.2); COMPLETE YES; EOS % 0.1 %; HEMATOCRIT 41.4 % (37-47); IG% 0.6 %; LYMPH % 5.9 %; LYMPH ABS # 0.86 K/uL (1.2-3.4); MEAN CORPUSCULAR HEMOGLOBIN 30.3 pg (25-34); MEAN CORPUSCULAR HGB CONC 33.3 g/dl (32-36); MEAN PLATELET VOLUME 9.2 fL (7.4-10.4); MONO % 4.4 %; NEUT % 88.8 %; PLATELET COUNT 312 K/uL (130-400); RED BLOOD COUNT 4.55 M/uL (4.2-5.4)
[2017-08-06 06:28] LABS: BUN/CREATININE RATIO 26.5 (10-20); CALCIUM 9.3 mg/dl (8.5-10.1); CREATININE 0.81 mg/dl (0.60-1.20); POTASSIUM 3.5 mmol/L (3.5-5.1)
[2017-08-06 06:31] LABS: ALB/GLOB RATIO 1.2 (0.9-2)
--- NOTE | 2017-08-06 06:33 | DIAGNOSTIC IMAGING REPORT ---
ABD/PELVIS WITHOUT FOR STONE CT DOSE: 1138.03 mGy.cm HISTORY: Pain Right flank pain TECHNIQUE: Multiaxial CT images of the abdomen and pelvis were performed without the use of intravenous and oral contrast according to the standard department stone protocol. A dose lowering technique was utilized adhering to the principles of ALARA. COMPARISON STUDY: 01/16/2016 FINDINGS: Unchanging right breast nodule. A biopsy clip may be present. Lung bases are clear. Minimal dependent basilar atelectasis. Several hepatic cysts unchanged from the prior study. Interval development of moderate right renal hydroureteronephrosis. 5 mm obstructing calculus at its distal aspect. Bladder is midline. There are no contained additional calcifications. No evidence for obstructive change of left-sided urinary tract. Bowel pattern is nonobstructive. Stable postoperative changes of the lumbosacral spine. 2 cm right ovarian cyst. IMPRESSION: 1. 5 mm obstructing calculus distal right ureter. 2. Right renal hydroureteronephrosis. 3. 2 cm right ovarian cyst. 4. Stable hepatic cysts. The above report was generated using voice recognition software. It may contain grammatical, syntax or spelling errors. Electronically signed by: Cory Spencer M.D. 08/06/2017 6:32 AM Dictated Date/Time: 08/06/2017 6:29 AM
[2017-08-06] MEDS ORDERED: ONDANSETRON HOME PACK 4MG OD TAB PO ONE (06:45)
[2017-08-06] MEDS ORDERED: OXYCODONE IR HOME PACK PO ONE (06:45)
[2017-08-06] MEDS ORDERED: SEPTRA DS HOME PACK 1 EA VIAL PO ONE (06:45)
[2017-08-06] MEDS ORDERED: SULF800T23 PO (06:47)
[2017-08-06] MEDS ORDERED: ONDA4TAB10 SL (06:47)
[2017-08-06] MEDS ORDERED: TAMS0.4C38 PO (06:47)
[2017-08-06] MEDS ORDERED: OXYC1TAB3 PO (06:47)
--- NOTE | 2017-08-06 06:50 | EMERGENCY ROOM VISIT NOTE ---
History First contact with patient: 05:35 Chief Complaint: ABDOMINAL PAIN Stated Complaint: PAIN IN RIGHT ABD, VOMITING Nursing Triage Summary: Patient reports pain in right abdomen/side area for the past 3 hours. Patient reports 1 week ago seen at urgent care for blood in urine and treated for UTI but told culture was negative. Patient has hx kidney stones years ago. Patient reports vomiting earlier. Patient reports pressure in bladder and intermittent back pain as well. History of Present Illness The patient is a 52 year old female who presents to the Emergency Room with complaints of right flank pain radiating into her right groin for the past 3 hours. The patient has a history of kidney stones roughly 20 or 25 years ago, and she states this feels similar to that episode. She did have some hematuria couple days ago that resolved. The patient states her discomfort is colicky and currently rated a 6/10. The worst pain is a 9/10. She has been vomiting. She has not been able to hold anything down at home, prompting her presentation. Review of Systems More than 10 systems were reviewed and otherwise negative with the exception of history of present illness. Past Medical/Surgical History Medical Problems: (1) Abdominal pain (2) Abscess of right breast (3) GERD (gastroesophageal reflux disease) (4) Hypothyroidism (5) Hypothyroidism Nos (6) Intractable back pain (7) Lumbar stenosis with neurogenic claudication (8) Migraine Surgical Problems: (1) H/O dilation and curettage (2) History of hysterectomy (3) History of hysterectomy (4) History of lumbar fusion (5) S/P lumbar fusion Family History Cardiac disorder in mother Social History Smoking Status: Never Smoker Alcohol Use: none Housing Status: lives with family Current/Historical Medications Scheduled Cholecalciferol (Vitamin D), 5,000 INTER.UNIT PO QAM Melatonin (Kp Melatonin), 1 TAB PO HS Ondasetron Odt (Zofran Odt), 4 MG SL Q6H Oxycodone Immediate Rel Tab (Roxicodone Ir), 1-2 TAB PO Q6 Progesterone (Prometrium), 200 MG PO DAILY Sulfa/Trimethoprim (Bactrim Ds 800MG/160MG), 1 TAB PO BID Tamsulosin Hcl (Flomax), 0.4 MG PO DAILY Thyroid ([place] Thyroid), 30 MG PO QAM [Estrogen Cream], 0.5 ML TOP HS [adrenevive], 2 CAP PO BID Scheduled PRN Hydrocodone/Acetaminophen 7.5MG/325MG (Arlee 7.5MG/325MG), 1 TAB PO Q4 PRN for Pain Oxycodone HCl (Oxycodone HCl), 5-10 MG PO Q4H PRN for Moderate - severe pain Allergies Coded Allergies: Penicillins (Verified Allergy, Mild, Rash, 09/17/16) PT HAD ANCEF W/O RXN 05/19/12 Physical Exam Vital Signs Date Time Temp Pulse Resp B/P (MAP) Pulse Ox O2 Delivery O2 Flow Rate FiO2 08/06/17 06:33 115 18 127/67 93 Room Air 08/06/17 05:20 37.0 102 18 140/85 100 Room Air Physical Exam VITALS: Vitals are noted on the nurse's note and reviewed by myself. Vital signs stable. GENERAL: Well-developed, well-nourished, white female, who appears moderately uncomfortable in her emergency department bed secondary to her complaint. She is cooperative with the examination. HEAD: Normocephalic atraumatic. HEART: Regular rate and rhythm without murmurs gallops or rubs. LUNGS: Clear to auscultation bilaterally without wheezes, rales or rhonchi. No retractions or accessory muscle use. ABDOMEN: Positive normal bowel sounds x 4. Soft, nontender, without masses or organomegaly. No guarding or rebound tenderness. No CVA tenderness. MUSCULOSKELETAL: No muscle atrophy, erythema, or edema noted. Full range of motion without joint tenderness in all extremities. Medical Decision & Procedures ER Provider Diagnostic Interpretation: ABD/PELVIS WITHOUT FOR STONE CT DOSE: 1138.03 mGy.cm HISTORY: Pain Right flank pain TECHNIQUE: Multiaxial CT images of the abdomen and pelvis were performed without the use of intravenous and oral contrast according to the standard department stone protocol. A dose lowering technique was utilized adhering to the principles of ALARA. COMPARISON STUDY: 01/16/2016 FINDINGS: Unchanging right breast nodule. A biopsy clip may be present. Lung bases are clear. Minimal dependent basilar atelectasis. Several hepatic cysts unchanged from the prior study. Interval development of moderate right renal hydroureteronephrosis. 5 mm obstructing calculus at its distal aspect. Bladder is midline. There are no contained additional calcifications. No evidence for obstructive change of left-sided urinary tract. Bowel pattern is nonobstructive. Stable postoperative changes of the lumbosacral spine. 2 cm right ovarian cyst. IMPRESSION: 1. 5 mm obstructing calculus distal right ureter. 2. Right renal hydroureteronephrosis. 3. 2 cm right ovarian cyst. 4. Stable hepatic cysts. Laboratory Results 08/06/17 05:51 Red Blood Count 4.55, Mean Corpuscular Volume 91.0, Mean Corpuscular Hemoglobin 30.3, Mean Corpuscular Hemoglobin Concent 33.3, Mean Platelet Volume 9.2, Neutrophils (%) (Auto) 88.8, Lymphocytes (%) (Auto) 5.9, Monocytes (%) (Auto) 4.4, Eosinophils (%) (Auto) 0.1, Basophils (%) (Auto) 0.2, Neutrophils # (Auto) 12.87, Lymphocytes # (Auto) 0.86, Monocytes # (Auto) 0.64, Eosinophils # (Auto) 0.02, Basophils # (Auto) 0.03 08/06/17 05:51 Test 08/06/17 05:50 08/06/17 05:51 White Blood Count 14.50 K/uL (4.8-10.8) Red Blood Count 4.55 M/uL (4.2-5.4) Hemoglobin 13.8 g/dL (12.0-16.0) Hematocrit 41.4 % (37-47) Mean Corpuscular Volume 91.0 fL (80-100) Mean Corpuscular Hemoglobin 30.3 pg (25-34) Mean Corpuscular Hemoglobin Concent 33.3 g/dl (32-36) Platelet Count 312 K/uL (130-400) Mean Platelet Volume 9.2 fL (7.4-10.4) Neutrophils (%) (Auto) 88.8 % Lymphocytes (%) (Auto) 5.9 % Monocytes (%) (Auto) 4.4 % Eosinophils (%) (Auto) 0.1 % Basophils (%) (Auto) 0.2 % Neutrophils # (Auto) 12.87 K/uL (1.4-6.5) Lymphocytes # (Auto) 0.86 K/uL (1.2-3.4) Monocytes # (Auto) 0.64 K/uL (0.11-0.59) Eosinophils # (Auto) 0.02 K/uL (0-0.5) Basophils # (Auto) 0.03 K/uL (0-0.2) RDW Standard Deviation 42.6 fL (36.4-46.3) RDW Coefficient of Variation 12.7 % (11.5-14.5) Immature Granulocyte % (Auto) 0.6 % Immature Granulocyte # (Auto) 0.08 K/uL (0.00-0.02) Anion Gap 7.0 mmol/L (3-11) Est Creatinine Clear Calc Drug Dose 90.1 ml/min Estimated GFR () 96.8 Estimated GFR (Non- 83.5 BUN/Creatinine Ratio 26.5 (10-20) Calcium Level 9.3 mg/dl (8.5-10.1) Total Bilirubin 0.3 mg/dl (0.2-1) Aspartate Amino Transf (AST/SGOT) 17 U/L (15-37) Alanine Aminotransferase (ALT/SGPT) 32 U/L (12-78) Alkaline Phosphatase 88 U/L (45-117) Total Protein 6.9 gm/dl (6.4-8.2) Albumin 3.8 gm/dl (3.4-5.0) Globulin 3.1 gm/dl (2.5-4.0) Albumin/Globulin Ratio 1.2 (0.9-2) Lipase 110 U/L (73-393) Medications Administered Medications (Trade) Dose Ordered Sig/Mitra Route Start Time Stop Time Status Last Admin Dose Admin Morphine Sulfate (MoRPHine SULFATE INJ) 6 mg NOW STAT IV 08/06/17 05:40 08/06/17 05:42 DC 08/06/17 06:03 6 MG Sodium Chloride 1,000 ml @ 999 mls/hr Q1H1M ONCE IV 08/06/17 05:45 08/06/17 06:45 DC 08/06/17 06:04 999 MLS/HR Ketorolac Tromethamine (Toradol Inj) 30 mg NOW STAT IV 08/06/17 05:40 08/06/17 05:42 DC 08/06/17 06:01 30 MG Ondansetron HCl (Zofran Inj) 4 mg NOW STAT IV 08/06/17 05:40 08/06/17 05:42 DC 08/06/17 06:00 4 MG ED Course Physical exam and history were performed. Nursing notes, EMR, and Medication List were personally reviewed. Patient appears to have right flank pain and right lower quadrant abdominal pain for the past 3 hours. IV access was established and labs were obtained. The patient was hydrated and medicated as above. CT scan was performed. Patient's blood work is as above and was reviewed. She does have a mildly elevated white count of 14,000. She does not have significant anemia, bandemia , or significant electrolyte imbalance. Urinalysis is as above. CT scan does show a 5 mm distal stone. I discussed his care with the patient, who appears well for discharge home. She evidently has an upcoming appointment in about 2 or 3 weeks with urology, and she was asked to keep that appointment. The patient will be given a course of oxycodone, Zofran, Flomax, and Bactrim. She was thoroughly invited back to the ER with any new, worsening, or concerning symptoms. She was otherwise invited back to the ER and was pleased with plan of care. The chart was completed utilizing [employer] Speech Voice Recognition Software. Grammatical errors, random word insertions, pronoun errors, and incomplete sentences are an occasional consequence of this system due to software limitations, ambient noise, and hardware issues. Any formal questions or concerns about the content, text, or information contained within the body of this dictation should be directly addressed to the provider for clarification. . Medical Decision Differential diagnosis: Etiologies such as appendicitis, diverticulitis, PUD, biliary pathology, UTI, pancreatitis, obstruction, mesenteric ischemia, aortic pathology, infections, inflammatory bowel disease, renal colic, as well as others were entertained. [place] Drug Monitoring Program Search Results: patient reviewed within database, no issues identified Impression Primary Impression: Right ureteral calculus Departure Information Prescriptions Tamsulosin Hcl (FLOMAX) 0.4 Mg Cap 0.4 MG PO DAILY for 7 Days, #7 CAP Prov: Jared Diehl PA-C 08/06/17 Ondasetron Odt (ZOFRAN ODT) 4 Mg Tab 4 MG SL Q6H for Nausea, #10 TAB Prov: Jared Diehl PA-C 08/06/17 Oxycodone Immediate Rel Tab (ROXICODONE IR) 5 Mg Tab 1-2 TAB PO Q6 for Pain, #24 TAB Prov: Jared Diehl PA-C 08/06/17 Sulfa/Trimethoprim (Bactrim Ds 800MG/160MG) Tab 1 TAB PO BID for 9 Days, #18 TAB Prov: Jared Diehl PA-C 08/06/17 Referrals No Doctor, Assigned (PCP) Patient Instructions My [facility]
[2017-08-06 06:54] LABS: MANUAL MICROSCOPIC REQUIRED? YES; REVIEW REQ? NO; URINE APPEARANCE SLIGHTLY CLOUDY (CLEAR); URINE COLOR ORANGE
[2017-08-06 06:55] LABS: SULFASALICYLIC ACID NEG (NEG)
[2017-08-06 06:57] LABS: URINE SPECIFIC GRAVITY 1.021 (1.000-1.030)
[2017-08-06 07:01] VITALS: BP 115/78; PULSE 98; O2SAT 100
[2017-08-06 07:03] LABS: URINE RBC >30 /hpf (0-4)
[2017-08-06 07:04] LABS: URINE BACTERIA 1+ (NEG)
[2017-08-06 07:05] LABS: ZZUR CULT IF INDIC CLEAN CATCH YES
[2017-08-10] MEDS ORDERED: THYR1TAB PO (08:01)
[2017-08-10] MEDS ORDERED: ESTRADIOL TOP (08:01)
[2017-08-10] MEDS ORDERED: [UNRECOGNIZED DRUG - OTHER] TOP (08:01)
[2017-08-10] MEDS ORDERED: CHOL1CAP79 PO (08:01)
[2017-08-10] MEDS ORDERED: [UNRECOGNIZED DRUG - CODE] PO (08:03)
[2017-08-10] MEDS ORDERED: [UNRECOGNIZED DRUG - OTHER] PO (08:04)
[2017-08-12] MEDS ORDERED: CEPH500C2 PO (08:01)
[2017-08-12] MEDS ORDERED: OXYC7.5T65 PO (08:01)
[2017-08-12] MEDS ORDERED: PHEN-775 PO (08:01)
[2017-08-16] MEDS ORDERED: PHEN-775 PO (09:11)
[2017-08-16] MEDS ORDERED: CPR500 PO (09:11)
== END 2017-08-06 07:10 | disposition home or self-care (01) ==
LOC: C.EDB 05:17 → C.EDC 07:10
DX: N20.1 Calculus of ureter (principal); K21.9 Gastro-esophageal reflux disease without esophagitis; E03.9 Hypothyroidism, unspecified; M48.06 Spinal stenosis, lumbar region; G43.909 Migraine, unspecified, not intractable, without status migrainosus; Z79.899 Other long term (current) drug therapy

== ENCOUNTER → 2017-08-08 | Outpatient (CLI) | payer BC ==
[~2017-08-08] MED LIST changes: +CEPH500C2 PO; +CHOL1CAP79 PO; +CPR500 PO; +ESTRADIOL TOP; +ONDA4TAB10 SL; +OXYC1TAB3 PO; +OXYC7.5T65 PO; +PHEN-775 PO; +SULF800T23 PO; +TAMS0.4C38 PO; +THYR1TAB PO; +[UNRECOGNIZED DRUG - CODE] PO; +[UNRECOGNIZED DRUG - OTHER] PO; +[UNRECOGNIZED DRUG - OTHER] TOP
--- NOTE | 2017-08-08 17:48 | DIAGNOSTIC IMAGING REPORT ---
CHEST 2 VIEWS ROUTINE CLINICAL HISTORY: PRE OP preoperative evaluation COMPARISON STUDY: No previous studies for comparison. FINDINGS: The bones soft tissues and hemidiaphragms are normal. The cardiomediastinal silhouette is normal. The lungs are clear. The pulmonary vasculature is normal. IMPRESSION: Negative chest. The above report was generated using voice recognition software. It may contain grammatical, syntax or spelling errors. Electronically signed by: Cory Spencer M.D. 08/08/2017 5:47 PM Dictated Date/Time: 08/08/2017 5:47 PM
== END | disposition home or self-care (01) ==
LOC: C.RAD 16:42
PROVIDERS: ATTEND Urology
DX: Z01.818 Encounter for other preprocedural examination (principal); N20.1 Calculus of ureter

== ENCOUNTER 2017-08-12 05:23 | Day surgery (SDC) | payer BC ==
[~2017-08-12] VITALS: Ht 167.6 cm; Wt 86.4 kg
[~2017-08-12 05:23] MED LIST changes: -CEPH500C2 PO; -CHOL100010 PO; -CPR500 PO; -ESTROGEN CREAM TOP; -HYDR-3983 PO; -OXYC7.5T65 PO; -PHEN-775 PO; -SULF800T23 PO; -THY/30 PO; -[UNRECOGNIZED DRUG - OTHER] PO
[2017-08-12 05:54] VITALS: BP 155/81; PULSE 119; TEMP 37.1; O2SAT 99; Ht 167.6 cm; Wt 86.4 kg
[2017-08-12] MEDS ORDERED: CEFAZOLIN 2000 MG/60 ML D5W IV SCH (06:00)
[2017-08-12] MEDS ORDERED: LACTATED RINGER'S 1000ML 1,000 ML IV SCH (06:00)
[2017-08-12] MEDS ORDERED: FENTANYL CITRATE INJ 50 MCG/1 ML 2 ML VIAL ONE ×2 (06:33→08:09)
[2017-08-12] MEDS ORDERED: PROPOFOL IV EMULSION 10 MG/ML 20 ML VIAL IV ONE ×2 (06:33→07:29)
[2017-08-12] MEDS ORDERED: ONDANSETRON INJ 2 MG/ML 2 ML VIAL ONE (06:33)
[2017-08-12] MEDS ORDERED: MIDAZOLAM HCL 1 MG/ML 2ML VIAL ONE (06:33)
[2017-08-12] MEDS ORDERED: LIDOCAINE HCL 2% 2 ML VIAL (20MG/ML) ONE (06:33)
[2017-08-12] MEDS ORDERED: DEXAMETHASONE SOD INJ 4 MG/ML VIAL ONE (06:33)
[2017-08-12] MEDS ORDERED: SCOPOLAMINE 1.5 MG TDSY TD ONE (06:56)
[2017-08-12] MEDS ORDERED: CONRAY 30% 150ML BOTTLE ONE (07:03)
[2017-08-12] MEDS ORDERED: KETOROLAC TROMETHAMINE 30 MG/ML VIAL ONE (07:52)
--- NOTE | 2017-08-12 07:59 | [facility] Operative Report ---
Operative Report Operative Date Aug 12, 2017. Pre-Operative Diagnosis Right Ureteral Stone Post-Operative Diagnosis Same Procedure(s) Performed Cysto, R Retrograde Pyelogram, Ureteroscopy, Laser Lithotripsy, Stent placement Surgeon Carson Commissioning Specialist Surgeon(s) None Estimated Blood Loss 0 Findings Obst Right stone with hydronephrosis at mid-distal ureter. Fluids See Anes Report Drains 6x24 Double J Right Anesthesia General Complication(s) None Disposition Recovery Room / PACU Indications Obstructing stone with pain and failed passage. Risks and benefits discussed at length. Description of Procedure Patient was consented and brought back to the operating room. Patient was placed under anesthesia and into the dorsal lithotomy position. A time out was completed. A 30degree Cystoscope was placed into the bladder and the entire bladder was examined. The UO's were identified. The Right was cannulized with a catheter and a retrograde pyelogram was completed. A wire was then placed. The rigid ureteroscope was selected and taken into the right ureter. The stone was encountered and pulverized to dust and small fragments. The area was bypassed and the scope taken up to the UPJ/Proximal Ureter. The ureter was clear of fragments. The scope was removed visualizing the entire ureter length. With the wire in place, a 6 x [24] Double J stent was placed. It was confirmed with fluoroscopy. With the stent in place, the bladder was emptied. The scope was removed. The patient was cleaned, aroused from anesthesia, and transferred to the pacu in stable condition having tolerated the procedure well with no complications. I was present and participated in all aspects of the procedure. The patient will be monitored in the PACU until transferred. I attest to the content of the Intraoperative Record and any orders documented therein. Any exceptions are noted below.
[2017-08-12] MEDS ORDERED: EpHEDrine SULFATE INJ 50 MG/ML AMP IV PRN (08:00)
[2017-08-12] MEDS ORDERED: ATROPINE SULFATE 0.1 MG/ML 5ML SYR IV PRN (08:00)
[2017-08-12] MEDS ORDERED: PROMETHAZINE HCL INJ 12.5 MG in SODIUM CHLORIDE 0.9% 50ML 50 ML IV PRN (08:00)
[2017-08-12] MEDS ORDERED: ONDANSETRON INJ 2 MG/ML 2 ML VIAL IV PRN (08:00)
[2017-08-12] MEDS ORDERED: HYDROmorphone INJ 1 MG/ML SYR IV PRN (08:00)
[2017-08-12] MEDS ORDERED: FENTANYL CITRATE INJ 50 MCG/1 ML 2 ML VIAL IV PRN (08:00)
[2017-08-12] MEDS ORDERED: PHEN-775 PO (08:01)
[2017-08-12] MEDS ORDERED: OXYC7.5T65 PO (08:01)
[2017-08-12] MEDS ORDERED: CEPH500C2 PO (08:01)
--- NOTE | 2017-08-12 08:03 | Discharge Instructions ---
Discharge Instructions Date of Service Aug 12, 2017. Admission Reason for Admission: Stones Discharge Discharge Diagnosis / Problem: Stone Discharge Goals Goal(s): Decrease discomfort, Improve function Activity Recommendations Activity Limitations: resume your previous activity None . Instructions / Follow-Up Instructions / Follow-Up May have blood in urine and possibly pelvic discomfort. Okay to shower. No baths or hot tubs. Call with any fevers. String attached to stent for removal in office. Keep appt next week for stent removal. Current Hospital Diet Hospital Diet(s): Regular Diet Discharge Diet Recommended Diet: Regular Diet Procedures Procedures Performed: Cysto, R Retrograde Pyelogram, Ureteroscopy, Laser Lithotripsy, Stent placement Pending Studies Studies pending at discharge: no Medical Emergencies . Who to Call and When: Medical Emergencies: If at any time you feel your situation is an emergency, please call 911 immediately. . Non-Emergent Contact Non-Emergency issues call your: Primary Care Provider, Urologist Call Non-Emergent contact if: you have a fever, temperature is above 101.5, your pain is not controlled, your pain is worsening . . "Provider Documentation" section prepared by Jj Byrd,. . VTE Core Measure Inpt VTE Proph given/why not?: Simin Song, SCD's
[2017-08-12] MEDS ORDERED: HYDROmorphone INJ 1 MG/ML SYR ONE (08:24)
--- NOTE | 2017-08-12 08:48 | Anesthesiology Progress Note ---
Anesthesia Post Op Note Date & Time Aug 12, 2017 at 08:48 Vital Signs Pain Intensity: 5.0 Vital Signs Past 12 Hours Date Time Temp Pulse Resp B/P (MAP) Pulse Ox O2 Delivery O2 Flow Rate FiO2 08/12/17 08:40 102 12 133/81 97 Room Air 08/12/17 08:30 110 14 113/67 93 Room Air 08/12/17 08:20 110 15 128/77 92 Room Air 08/12/17 08:10 112 13 120/69 94 Room Air 08/12/17 08:03 36.4 119 16 123/71 95 Room Air 08/12/17 05:54 37.1 119 18 155/81 (105) 99 Room Air Notes Mental Status: alert / awake / arousable, participated in evaluation Pt Amnestic to Procedure: Yes Nausea / Vomiting: adequately controlled Pain: adequately controlled Airway Patency, RR, SpO2: stable & adequate BP & HR: stable & adequate Hydration State: stable & adequate Anesthetic Complications: no major complications apparent
[2017-08-12 09:15] VITALS: BP 142/72; PULSE 98; TEMP 36.9; O2SAT 96
[2017-08-12 09:45] VITALS: BP 144/75; PULSE 102; O2SAT 94
--- NOTE | 2017-08-12 10:05 | DIAGNOSTIC IMAGING REPORT ---
RETROGRADE INCLUDES KUB HISTORY: LASER/LITHO STENT FLUOROSCOPY TIME: 31 seconds. FINDINGS: 7 fluoroscopic spot images were submitted for review. Initial images demonstrate a catheter placed in the right ureter in a retrograde fashion followed by contrast injection into the right renal collecting system. The right renal collecting system is mild distended. This is followed by placement of a right ureteral stent which appears to be in good position. IMPRESSION: Fluoroscopy provided for right ureteral stent placement. Electronically signed by: Ricky Langford M.D. 08/12/2017 10:03 AM Dictated Date/Time: 08/12/2017 10:02 AM
[2017-08-12 10:25] VITALS: BP 139/65; PULSE 107; TEMP 36.9; O2SAT 92
[2017-08-16] MEDS ORDERED: PHEN-775 PO (09:11)
[2017-08-16] MEDS ORDERED: CPR500 PO (09:11)
== END 2017-08-12 10:45 | disposition home or self-care (01) ==
LOC: C.ACU 05:23
PROVIDERS: ATTEND Urology
DX: N13.2 Hydronephrosis with renal and ureteral calculous obstruction (principal); E03.9 Hypothyroidism, unspecified; E78.00 Pure hypercholesterolemia, unspecified; N63 Unspecified lump in breast

== ENCOUNTER 2017-08-14 20:19 | Inpatient (IN) | payer BC ==
[~2017-08-14] VITALS: Ht 167.6 cm; Wt 85.5 kg
[~2017-08-14 20:19] MED LIST changes: +CEPH500C2 PO; +OXYC7.5T65 PO; +PHEN-775 PO
[2017-08-14] MEDS ORDERED: ONDANSETRON INJ 2 MG/ML 2 ML VIAL IV STA ×2 (21:02→22:37)
[2017-08-14] MEDS ORDERED: HYDROmorphone INJ 1 MG/ML SYR IV STA (21:02)
[2017-08-14] MEDS ORDERED: SODIUM CHLORIDE 0.9% 1000ML 1,000 ML IV STA (21:02)
[2017-08-14 21:13] LABS: BASO % 0.2 %; BASO ABS # 0.03 K/uL (0-0.2); COMPLETE YES; EOS % 0.1 %; HEMATOCRIT 43.3 % (37-47); IG% 0.3 %; LYMPH % 7.7 %; LYMPH ABS # 1.13 K/uL (1.2-3.4); MEAN CELL VOLUME 92.3 fL (80-100); MEAN CORPUSCULAR HEMOGLOBIN 30.5 pg (25-34); MEAN PLATELET VOLUME 9.1 fL (7.4-10.4); MONO % 6.7 %; PLATELET COUNT 339 K/uL (130-400); RED BLOOD COUNT 4.69 M/uL (4.2-5.4); URINE APPEARANCE TURBID (CLEAR); URINE COLOR ORANGE; URINE EPITHELIAL CELL AUTO 20-30 /lpf (0-5); URINE NITRITE POS (NEG); URINE SPECIFIC GRAVITY 1.022 (1.000-1.030); UROBILINOGEN NEG (NEG); WHITE BLOOD COUNT 14.64 K/uL (4.8-10.8); ZZUR CULT IF INDIC CLEAN CATCH YES
[2017-08-14 21:22] LABS: URINE BILIRUBIN 1+ (NEG)
[2017-08-14 21:23] LABS: MANUAL MICROSCOPIC REQUIRED? NO; REVIEW REQ? YES
[2017-08-14 21:26] LABS: ALT/SGPT 32 U/L (12-78); BLOOD UREA NITROGEN 19 mg/dl (7-18); BUN/CREATININE RATIO 22.2 (10-20); CALCIUM 9.1 mg/dl (8.5-10.1); CARBON DIOXIDE 28 mmol/L (21-32); CHLORIDE 103 mmol/L (98-107); CREATININE 0.85 mg/dl (0.60-1.20); GLUCOSE 113 mg/dl (70-99); POTASSIUM 3.3 mmol/L (3.5-5.1); SODIUM 139 mmol/L (136-145)
[2017-08-14 21:29] LABS: ALKALINE PHOSPHATASE 85 U/L (45-117); AST/SGOT 16 U/L (15-37)
--- NOTE | 2017-08-14 22:01 | DIAGNOSTIC IMAGING REPORT ---
KUB CLINICAL HISTORY: 52 years-old Female presenting with r sided stone . TECHNIQUE: Single supine view of the abdomen was obtained. COMPARISON: 08/06/2017. FINDINGS: A right ureteral stent is now in place. No radiographically apparent calcifications project over the kidneys or along the courses of the ureters. The previously noted obstructing calculus in the mid to distal right ureter is not apparent. Moderate stool burden in the right colon. Pelvic phleboliths also noted. Posterior lumbar fusion hardware of L4-5 with interbody spacers at L4-5 and L5-S1. IMPRESSION: 1. Interval placement of right ureteral stent. Nonvisualization of the previously noted calculus in the mid to distal right ureter. Electronically signed by: Neel Yepez M.D. 08/14/2017 10:00 PM Dictated Date/Time: 08/14/2017 9:58 PM
[2017-08-14] MEDS ORDERED: MoRPHine SULFATE 10 MG/ML CARP/VIAL IV STA ×2 (22:37→23:47)
[2017-08-14] MEDS ORDERED: CEFTRIAXONE SOD INJ 1 GM ADDVIAL IV STA (23:47)
[2017-08-14] MEDS ORDERED: MoRPHine SULFATE 4 MG/ML 1 ML CARP\\VIAL ONE (23:52)
[2017-08-14] MEDS ORDERED: MoRPHine SULFATE 2 MG/ML CARP ONE (23:53)
[2017-08-14] MEDS ORDERED: POTASSIUM CHLORIDE 10 MEQ TABCR PO STA (23:55)
[2017-08-15] MEDS ORDERED: SODIUM CHLORIDE 0.9% 1000ML 1,000 ML IV ONE
[2017-08-15] MEDS ORDERED: NSS + 20MEQ KCL 1000ML 1,000 ML IV SCH
[2017-08-15 01:44] VITALS: O2SAT 94
--- NOTE | 2017-08-15 01:44 | EMERGENCY ROOM VISIT NOTE ---
History Report prepared by Bozena: Viki Munroe Under the Supervision of: Omar SmithO. First contact with patient: 20:51 Chief Complaint: FLANK PAIN Stated Complaint: FLANK PAIN History of Present Illness The patient is a 52 year old female who presents to the Emergency Room with complaints of worsening right-sided flank pain beginning earlier today. The patient had lithotripsy and stent placed in the right ureter two days ago. She had a 5mm stone with symptoms beginning on July 29. The patient was doing well after surgery and using oxycodone for pain. Today around 2pm she started having pain in the right flank wrapping around into the right abdomen. She states that this pain feels exactly like the pain she was having with her kidney stone before the surgery and the pain is located in the same spot. She tried taking the oxycodone and Zofran but has had no relief of her symptoms. The patient rates her current pain as an 8/10 in severity. She has had low- grade fevers, nausea, and one episode of vomiting today. She has had dysuria for the past two days. The patient denies diarrhea and states that she has been constipated. She still has her gallbladder and her appendix. Source of History: patient Onset: earlier today Position: other (right flank) Symptom Intensity: 8/10 Timing: worsening Associated Symptoms: + fevers, + nausea, + vomiting, + abdominal pain, + urinary symptoms, No diarrhea Review of Systems See HPI for pertinent positives & negatives. A total of 10 systems reviewed and were otherwise negative. Past Medical & Surgical Medical Problems: (1) Abdominal pain (2) Abscess of right breast (3) GERD (gastroesophageal reflux disease) (4) Hypothyroidism (5) Hypothyroidism Nos (6) Intractable back pain (7) Lumbar stenosis with neurogenic claudication (8) Migraine (9) Sepsis Surgical Problems: (1) H/O dilation and curettage (2) History of hysterectomy (3) History of hysterectomy (4) History of lumbar fusion (5) S/P lumbar fusion Family History Cardiac disorder in mother Hypertension Kidney disease Kidney stones Social History Smoking Status: Never Smoker Smokeless Tobacco Use: No Alcohol Use: none Marital Status: Housing Status: lives with family Occupation Status: employed Current/Historical Medications Scheduled Cephalexin Monohydrate (Keflex), 500 MG PO TID Cholecalciferol (D3 Maximum Strength), 5,000 UNITS PO QAM Melatonin (Kp Melatonin), 3 MG PO HS Ondasetron Odt (Zofran Odt), 4 MG SL Q6H Progesterone (Prometrium), 150 MG PO HS Thyroid (Nature-Throid), 48.75 MG PO QAM [Adapten-All], 2 CAP PO BID [Estradiol/Espriol], 0.5 ML TOP QAM [Puremethylation], 1 CAP PO QAM Scheduled PRN Oxycodone HCl (Oxycodone HCl), 5-10 MG PO Q4H PRN for Moderate - severe pain Oxycodone/Acetaminophen 7.5MG/325MG (Percocet 7.5MG/325MG), 1 TAB PO Q6 PRN for Pain Phenazopyridine Hcl (Pyridium), 200 MG PO TID PRN for spasms Allergies Coded Allergies: Penicillins (Verified Allergy, Intermediate, Rash, 08/14/17) PT HAD ANCEF W/O RXN 05/19/12 Physical Exam Vital Signs Date Time Temp Pulse Resp B/P (MAP) Pulse Ox O2 Delivery O2 Flow Rate FiO2 08/15/17 01:02 97 08/15/17 00:04 107 18 107/60 96 Room Air 08/14/17 22:20 113 20 120/78 93 Room Air 08/14/17 20:26 37.0 111 20 120/70 96 Room Air Physical Exam GENERAL: alert, laying in bed, disheveled appearing, well nourished, mild distress, non-toxic EYE EXAM: normal conjunctiva OROPHARYNX: no exudate, no erythema, lips, buccal mucosa, and tongue normal and mucous membranes are moist NECK: supple, no nuchal rigidity, no adenopathy, non-tender LUNGS: Clear to auscultation. Normal chest wall mechanics HEART: no murmurs, S1 normal and S2 normal ABDOMEN: abdomen soft, tenderness in right flank wrapping around to abdomen, normo-active bowel sounds, no masses, no rebound or guarding. BACK: Back is symmetrical on inspection and there is no deformity, no midline tenderness, no CVA tenderness. SKIN: no rashes and no bruising UPPER EXTREMITIES: upper extremities are grossly normal. LOWER EXTREMITIES: No pitting edema. NEURO EXAM: Normal sensorium, cranial nerves II-XII grossly intact, normal speech, no gross weakness of arms, no gross weakness of legs. Medical Decision & Procedures ER Provider Diagnostic Interpretation: Radiology results as stated below per my review and the radiologist's interpretation: KUB CLINICAL HISTORY: 52 years-old Female presenting with r sided stone . TECHNIQUE: Single supine view of the abdomen was obtained. COMPARISON: 08/06/2017. FINDINGS: A right ureteral stent is now in place. No radiographically apparent calcifications project over the kidneys or along the courses of the ureters. The previously noted obstructing calculus in the mid to distal right ureter is not apparent. Moderate stool burden in the right colon. Pelvic phleboliths also noted. Posterior lumbar fusion hardware of L4-5 with interbody spacers at L4-5 and L5-S1. IMPRESSION: 1. Interval placement of right ureteral stent. Nonvisualization of the previously noted calculus in the mid to distal right ureter. Electronically signed by: Neel Yepez M.D. 08/14/2017 10:00 PM Dictated Date/Time: 08/14/2017 9:58 PM US RENAL: Mild right hydronephrosis. Stent visualized int he proximal ureter. Left kidney is unremarkable. Portion of right-sided stent visualized within the bladder which is otherwise unremarkable. Left ureteral jet detected. Radiologist: Osmar Merchant MD Laboratory Results 08/14/17 20:50 Red Blood Count 4.69, Mean Corpuscular Volume 92.3, Mean Corpuscular Hemoglobin 30.5, Mean Corpuscular Hemoglobin Concent 33.0, Mean Platelet Volume 9.1, Neutrophils (%) (Auto) 85.0, Lymphocytes (%) (Auto) 7.7, Monocytes (%) (Auto) 6.7, Eosinophils (%) (Auto) 0.1, Basophils (%) (Auto) 0.2, Neutrophils # (Auto) 12.45, Lymphocytes # (Auto) 1.13, Monocytes # (Auto) 0.98, Eosinophils # (Auto) 0.01, Basophils # (Auto) 0.03 08/14/17 20:50 Test 08/14/17 20:50 08/15/17 00:36 White Blood Count 14.64 K/uL (4.8-10.8) Red Blood Count 4.69 M/uL (4.2-5.4) Hemoglobin 14.3 g/dL (12.0-16.0) Hematocrit 43.3 % (37-47) Mean Corpuscular Volume 92.3 fL (80-100) Mean Corpuscular Hemoglobin 30.5 pg (25-34) Mean Corpuscular Hemoglobin Concent 33.0 g/dl (32-36) Platelet Count 339 K/uL (130-400) Mean Platelet Volume 9.1 fL (7.4-10.4) Neutrophils (%) (Auto) 85.0 % Lymphocytes (%) (Auto) 7.7 % Monocytes (%) (Auto) 6.7 % Eosinophils (%) (Auto) 0.1 % Basophils (%) (Auto) 0.2 % Neutrophils # (Auto) 12.45 K/uL (1.4-6.5) Lymphocytes # (Auto) 1.13 K/uL (1.2-3.4) Monocytes # (Auto) 0.98 K/uL (0.11-0.59) Eosinophils # (Auto) 0.01 K/uL (0-0.5) Basophils # (Auto) 0.03 K/uL (0-0.2) RDW Standard Deviation 42.5 fL (36.4-46.3) RDW Coefficient of Variation 12.6 % (11.5-14.5) Immature Granulocyte % (Auto) 0.3 % Immature Granulocyte # (Auto) 0.04 K/uL (0.00-0.02) Urine Color ORANGE Urine Appearance TURBID (CLEAR) Urine pH 5.0 (4.5-7.5) Urine Specific [place] 1.022 (1.000-1.030) Urine Protein 3+ (NEG) Urine Glucose (UA) NEG (NEG) Urine Ketones NEG (NEG) Urine Occult Blood 3+ (NEG) Urine Nitrite POS (NEG) Urine Bilirubin 1+ (NEG) Urine Urobilinogen NEG (NEG) Urine Leukocyte Esterase MODERATE (NEG) Urine WBC (Auto) 10-30 /hpf (0-5) Urine RBC (Auto) >30 /hpf (0-4) Urine Hyaline Casts (Auto) 5-10 /lpf (0-5) Urine Epithelial Cells (Auto) 20-30 /lpf (0-5) Urine Bacteria (Auto) NEG (NEG) Urine Crystals (NONE PRSENT) Urine Yeast (Auto) (NONE PRSENT) Anion Gap 8.0 mmol/L (3-11) Est Creatinine Clear Calc Drug Dose 85.3 ml/min Estimated GFR () 91.3 Estimated GFR (Non- 78.8 BUN/Creatinine Ratio 22.2 (10-20) Calcium Level 9.1 mg/dl (8.5-10.1) Total Bilirubin 0.4 mg/dl (0.2-1) Direct Bilirubin < 0.1 mg/dl (0-0.2) Aspartate Amino Transf (AST/SGOT) 16 U/L (15-37) Alanine Aminotransferase (ALT/SGPT) 32 U/L (12-78) Alkaline Phosphatase 85 U/L (45-117) Total Protein 7.3 gm/dl (6.4-8.2) Albumin 4.1 gm/dl (3.4-5.0) Lipase 105 U/L (73-393) Lactic Acid Level 1.1 mmol/L (0.4-2.0) Laboratory results per my review. Medications Administered Medications (Trade) Dose Ordered Sig/Mitra Route Start Time Stop Time Status Last Admin Dose Admin Sodium Chloride 1,000 ml @ 999 mls/hr Q1H1M STAT IV 08/14/17 21:02 08/14/17 22:02 DC 08/14/17 21:16 999 MLS/HR Ondansetron HCl (Zofran Inj) 4 mg NOW STAT IV 08/14/17 21:02 08/14/17 21:05 DC 08/14/17 21:16 4 MG Hydromorphone HCl (Dilaudid Inj) 1 mg NOW STAT IV 08/14/17 21:02 08/14/17 21:05 DC 08/14/17 21:17 1 MG Morphine Sulfate (MoRPHine SULFATE INJ) 6 mg NOW STAT IV 08/14/17 22:37 08/14/17 22:38 DC 08/14/17 22:42 6 MG Ondansetron HCl (Zofran Inj) 4 mg NOW STAT IV 08/14/17 22:37 08/14/17 22:38 DC 08/14/17 22:41 4 MG Ceftriaxone Sodium (Rocephin Inj) 1 gm NOW STAT IV 08/14/17 23:47 08/14/17 23:48 DC 08/14/17 23:57 1 GM Morphine Sulfate (MoRPHine SULFATE INJ) 4 mg STK-MED ONCE .ROUTE 08/14/17 23:52 08/14/17 23:53 DC 08/14/17 23:58 4 MG Morphine Sulfate (MoRPHine SULFATE INJ) 2 mg STK-MED ONCE .ROUTE 08/14/17 23:53 08/14/17 23:54 DC 08/14/17 23:58 2 MG Potassium Chloride (Klor-Con M10) 40 meq NOW STAT PO 08/14/17 23:55 08/15/17 00:06 DC 08/15/17 00:29 40 MEQ Sodium Chloride 1,000 ml @ 500 mls/hr Q2H ONCE IV 08/15/17 00:00 08/15/17 01:59 08/15/17 00:31 500 MLS/HR ED Course ED COURSE: Vital signs were reviewed and showed tachycardic. The patients medical record was reviewed The above diagnostic studies were performed and reviewed. ED treatments and interventions as stated above. 2050: The patient was evaluated in room B8. A complete history and physical examination was performed. 2101: Dilaudid 1 mg IV, Zofran 4 mg IV, NSS 1000 ml @ 999 mls/hr IV 7: Zofran 4 mg IV, Morphine sulfate 6 mg IV 2340: Upon reevaluation, the patient is still having pain. I discussed my findings with the patient and she understands and agrees with the treatment plan. Based on the patients age, coexisting illnesses, exam and lab findings the decision to treat as an inpatient was made. The patient remained stable while under my care. The patient will be evaluated for further management. 2347: Morphine sulfate 6 mg IV, Rocephin 1 gm IV 2351: I spoke with Dr. Lyon. We discussed the patient's case. [facility]. Medical Decision Differential diagnoses includes but is not limited to gastritis, peptic ulcer disease, GERD, gallbladder disease, pancreatitis, small bowel obstruction, acute coronary syndrome, pericarditis, ischemic bowel, irritable bowel disease, irritable bowel syndrome, appendicitis, diverticulitis, malignancy, hernia, urinary tract infection, torsion, perforation, trauma, infectious. Patient is a 52-year-old female who presents ER for severe right-sided flank abdominal pain. She had removal of a 5 mm stone along with a stent placed this past [place]. He notes that at 2 PM the pain started it feels exactly her previous stone. No recorded fevers. White count 14.5 thousand. BMP all LFTs, bilirubin lactate was unremarkable. Lipase is normal. UA shows nitrites, white cells and leukocytes. There were several epithelial cells as well. Patient was given IV Rocephin. Ultrasound shows mild hydro-as expected. KUB was unremarkable. She had 3 doses of IV narcotics. Pain was difficult to control. She was admitted to internal medicine for pain control and possible UTI with a stent. Medication Reconcilliation Current Medication List: was personally reviewed by me Blood Pressure Screening Patient's blood pressure: Normal blood pressure Consults Time Called: Consulting Physician: Dr. Lyon Returned Call: [phone] Lyon. We discussed the patient's case. The patient will be evaluated by the [facility] for further management. Impression Primary Impression: Renal colic Additional Impression: Urinary tract infection Scribe Attestation The scribe's documentation has been prepared under my direction and personally reviewed by me in its entirety. I confirm that the note above accurately reflects all work, treatment, procedures, and medical decision making performed by me. Departure Information Dispostion Being Evaluated By Hospitalist Referrals No Doctor, Assigned (PCP) Patient Instructions My [facility] Problem Qualifiers Additional Impression: Urinary tract infection Urinary tract infection type: site unspecified Hematuria presence: with hematuria Qualified Codes: N39.0 - Urinary tract infection, site not specified ; R31.9 - Hematuria, unspecified
[2017-08-15] MEDS ORDERED: LORAZEPAM 2 MG/ML 1 ML VIAL IV PRN (01:45)
[2017-08-15] MEDS ORDERED: ACETAMINOPHEN 325 MG TAB PO PRN (01:45)
[2017-08-15] MEDS ORDERED: ONDANSETRON INJ 2 MG/ML 2 ML VIAL IV PRN (01:45)
[2017-08-15] MEDS ORDERED: PROMETHAZINE HCL INJ 12.5 MG in SODIUM CHLORIDE 0.9% 50ML 50 ML IV PRN (01:45)
[2017-08-15] MEDS ORDERED: MoRPHine SULFATE 4 MG/ML 1 ML CARP\\VIAL IV PRN (01:45)
[2017-08-15] MEDS ORDERED: NSS + 20MEQ KCL 1000ML 1,000 ML IV ONE (02:00)
[2017-08-15 02:10] VITALS: BP 128/83; PULSE 87; TEMP 36.9; O2SAT 91; Ht 167.6 cm; Wt 85.5 kg
[2017-08-15] MEDS: KETOROLAC TROMETHAMINE 30 MG/ML VIAL IV PRN ×3 (02:40→19:11)
[2017-08-15] MEDS: PHENAZOPYRIDINE HCL 200 MG TAB PO PRN ×3 (02:58→19:12)
--- NOTE | 2017-08-15 05:00 | HISTORY & PHYSICAL EXAMINATION ---
DATE OF ADMISSION: 08/15/2017 PRIMARY CARE DOCTOR: From [place]. CHIEF COMPLAINT: Right flank pain, nausea and vomiting. HISTORY OF PRESENT ILLNESS: Hx obtained from patient and records. Medical history of significant for urolithiasis, endometriosis, hyperlipidemia, hypothyroidism as per records. Recent confinement last January 2017 for lumbar disk herniation sp surgery. A few days ago, patient underwent stent placement for R kidney stone outpatient. Patient had a tolerable achy right flank pain after procedure, hematuria sx as well. Yesterday afternoon, worsening of right flank pain, nausea, vomiting. Good bowel movement. No fever or chills. Brought to the ER. Patient given Ceftriaxone. MEDICAL HISTORY: As above. SURGERIES: She has had back surgery, hysterectomy and other gynecologic procedures. HOME MEDICATIONS: Include thyroid medicine, Aldactone, estradiol, melatonin ALLERGIES: PENICILLIN. FAMILY HISTORY: Heart disease, endometriosis, hypertension and kidney stones. PERSONAL AND SOCIAL HISTORY: Nonsmoker, no chronic ETOH intake. Businesswoman. Respiratory Therapy background REVIEW OF SYSTEMS: As per HPI, all other ROS negative. PHYSICAL EXAMINATION: VITAL SIGNS: Blood pressure was noted to be 120/70; pulse rate 111, later 87; respiratory rate 27, sats 96% on room air. GENERAL: Noted to be uncomfortable, obese, no respiratory distress. SKIN: Normal color. HEENT: [place] palpebral conjunctivae. Dry mucosa. NECK: No JVD. Supple. CHEST: Clear to auscultation. HEART: Regular rate and rhythm. ABDOMEN: Some distention, NT BACK : right flank tenderness. EXTREMITIES: No edema. No tenderness NEUROLOGIC: No gross focality. LABS: Hemoglobin 14.3, hematocrit 43.3, white cell count 14.6, platelets 239. Sodium noted to be 140, K 3.3 chloride 103, CO2 28, BUN 90, creatinine 0.8, glucose 113. UA, nitrite positive urine. Renal ultrasound initial read showed mild hydronephrosis, right-sided stent visualized within the bladder ASSESSMENT: 1. Sepsis secondary to complicated urinary tract infection. Recent R stent replacement for kidney stone. 2. Hypokalemia secondary to emesis. 3. Hypothyroidism. euthyroid as of today's TSH. PLAN: GMF Follow cultures, IV ceftriaxone. IVF Urology consult. Re Postop eval. Replace potassium. Check magnesium. DVT prophylaxis, Lovenox subQ. Full code. MTDD
[2017-08-15 06:10] LABS: BASO % 0.2 %; BASO ABS # 0.02 K/uL (0-0.2); COMPLETE YES; EOS % 0.3 %; HEMATOCRIT 38.7 % (37-47); IG% 0.5 %; LYMPH % 23.5 %; LYMPH ABS # 2.07 K/uL (1.2-3.4); MEAN CELL VOLUME 92.8 fL (80-100); MEAN CORPUSCULAR HEMOGLOBIN 31.2 pg (25-34); MEAN CORPUSCULAR HGB CONC 33.6 g/dl (32-36); MEAN PLATELET VOLUME 9.6 fL (7.4-10.4); MONO % 8.4 %; NEUT % 67.1 %; PLATELET COUNT 277 K/uL (130-400); RED BLOOD COUNT 4.17 M/uL (4.2-5.4); WHITE BLOOD COUNT 8.81 K/uL (4.8-10.8)
[2017-08-15 06:30] LABS: PROTHROMBIN TIME (PATIENT) 10.2 SECONDS (9.0-12.0)
[2017-08-15 06:39] LABS: BUN/CREATININE RATIO 19.3 (10-20); CALCIUM 8.5 mg/dl (8.5-10.1); CREATININE 0.61 mg/dl (0.60-1.20); POTASSIUM 4.1 mmol/L (3.5-5.1)
--- NOTE | 2017-08-15 06:51 | DIAGNOSTIC IMAGING REPORT ---
EXAMINATION: RENAL ULTRASOUND CLINICAL HISTORY: Right flank pain COMPARISON STUDY: CT scan dated 08/06/2017 FINDINGS: The right kidney measures 10.6 cm. The left kidney measures 11 cm. There is mild right-sided hydronephrosis. A right-sided F ureteral stent is visualized. There are no renal masses. The right-sided neck ureteral stent is visualized. A left ureteral jet was identified. IMPRESSION : 1. Mild right-sided hydronephrosis 2. Right-sided nephroureteral stent. Electronically signed by: Joshua Leach M.D. 08/15/2017 6:50 AM Dictated Date/Time: 08/15/2017 6:49 AM
[2017-08-15 07:04] VITALS: BP 115/75; PULSE 72; TEMP 36.8; O2SAT 92
[2017-08-15] MEDS ORDERED: BISACODYL 10 MG SUPP PR PRN (08:15)
--- NOTE | 2017-08-15 08:32 | Urology Consultation ---
History General Date of Service: Aug 15, 2017. Chief Complaint: right flank pain Primary Care Physician: No Doctor, Assigned Pt seen a urologist before?: Yes (Dr. Byrd) If yes, why?: right ureteral stone History of Present Illness 52 yo female presents to [facility] with c/o right flank pain and n/v s/p right URS/ LL with Dr. Byrd on 08-12-17. She reports worsening of pain, n/v, dysuria, and hematuria yesterday. N/v has improved this morning, but her pain, dysuria, and hematuria persists. She is currently taking Pyridium. Unable to tolerate Flomax d/t congestion. Stent appears in good place on KUB. Mild right hydro on renal u/s. Nitrite positive UA on admission. UC&S pending. Imaging Imaging: KUB, Ultrasound Laboratory Last 24 Hours Test 08/14/17 20:50 08/15/17 00:36 08/15/17 05:20 White Blood Count 14.64 K/uL 8.81 K/uL Red Blood Count 4.69 M/uL 4.17 M/uL Hemoglobin 14.3 g/dL 13.0 g/dL Hematocrit 43.3 % 38.7 % Mean Corpuscular Volume 92.3 fL 92.8 fL Mean Corpuscular Hemoglobin 30.5 pg 31.2 pg Mean Corpuscular Hemoglobin Concent 33.0 g/dl 33.6 g/dl Platelet Count 339 K/uL 277 K/uL Mean Platelet Volume 9.1 fL 9.6 fL Neutrophils (%) (Auto) 85.0 % 67.1 % Lymphocytes (%) (Auto) 7.7 % 23.5 % Monocytes (%) (Auto) 6.7 % 8.4 % Eosinophils (%) (Auto) 0.1 % 0.3 % Basophils (%) (Auto) 0.2 % 0.2 % Neutrophils # (Auto) 12.45 K/uL 5.91 K/uL Lymphocytes # (Auto) 1.13 K/uL 2.07 K/uL Monocytes # (Auto) 0.98 K/uL 0.74 K/uL Eosinophils # (Auto) 0.01 K/uL 0.03 K/uL Basophils # (Auto) 0.03 K/uL 0.02 K/uL RDW Standard Deviation 42.5 fL 42.5 fL RDW Coefficient of Variation 12.6 % 12.6 % Immature Granulocyte % (Auto) 0.3 % 0.5 % Immature Granulocyte # (Auto) 0.04 K/uL 0.04 K/uL Urine Color ORANGE Urine Appearance TURBID Urine pH 5.0 Urine Specific [place] 1.022 Urine Protein 3+ Urine Glucose (UA) NEG Urine Ketones NEG Urine Occult Blood 3+ Urine Nitrite POS Urine Bilirubin 1+ Urine Urobilinogen NEG Urine Leukocyte Esterase MODERATE Urine WBC (Auto) 10-30 /hpf Urine RBC (Auto) >30 /hpf Urine Hyaline Casts (Auto) 5-10 /lpf Urine Epithelial Cells (Auto) 20-30 /lpf Urine Bacteria (Auto) NEG Urine Crystals Urine Yeast (Auto) Sodium Level 139 mmol/L 143 mmol/L Potassium Level 3.3 mmol/L 4.1 mmol/L Chloride Level 103 mmol/L 109 mmol/L Carbon Dioxide Level 28 mmol/L 28 mmol/L Anion Gap 8.0 mmol/L 6.0 mmol/L Blood Urea Nitrogen 19 mg/dl 12 mg/dl Creatinine 0.85 mg/dl 0.61 mg/dl Est Creatinine Clear Calc Drug Dose 85.3 ml/min 118.8 ml/min Estimated GFR () 91.3 120.8 Estimated GFR (Non- 78.8 104.2 BUN/Creatinine Ratio 22.2 19.3 Random Glucose 113 mg/dl 89 mg/dl Calcium Level 9.1 mg/dl 8.5 mg/dl Magnesium Level 2.0 mg/dl Total Bilirubin 0.4 mg/dl Direct Bilirubin < 0.1 mg/dl Aspartate Amino Transf (AST/SGOT) 16 U/L Alanine Aminotransferase (ALT/SGPT) 32 U/L Alkaline Phosphatase 85 U/L Total Protein 7.3 gm/dl Albumin 4.1 gm/dl Lipase 105 U/L Thyroid Stimulating Hormone (TSH) 1.050 uIu/ml Lactic Acid Level 1.1 mmol/L Prothrombin Time 10.2 SECONDS Prothromb Time International Ratio 1.0 Problem List Medical Problems: (1) Abscess of right breast Status: Acute (2) Hypothyroidism Nos Status: Chronic (3) Renal colic Status: Acute (4) Right ureteral calculus Status: Acute (5) Urinary tract infection Status: Acute Past History high cholesterol, hypothyroidism, kidney stones, other (endometriosis) Past Surgical History: hysterectomy, spinal surgery, ureteral stent Family History Cardiac disorder in mother Hypertension Kidney disease Kidney stones endometriosis Social History Hx Tobacco Use In Past Year?: No Smoking: non-smoker Alcohol: occasional Marital status: Occupation status: employed History of MDRO No Allergies Coded Allergies: Penicillins (Verified Allergy, Intermediate, Rash, 08/14/17) PT HAD ANCEF W/O RXN 05/19/12 Medications Home Medications: Home Meds and Scripts Medications Dose Route/Sig Max Daily Dose Days Date Category Percocet 7.5MG/325MG (Oxycodone/Acetaminophen) Tab 1 Tab PO Q6 PRN 3 08/12/17 Rx Pyridium (Phenazopyridine Hcl) 200 Mg Tab 200 Mg PO TID PRN 08/12/17 Rx Keflex (Cephalexin Monohydrate) 500 Mg Cap 500 Mg PO TID 08/12/17 Rx [Puremethylation] 1 Cap PO QAM 08/10/17 Reported [Adapten-All] 2 Cap PO BID 08/10/17 Reported [Estradiol/Espriol] 0.5 Ml TOP QAM 08/10/17 Reported Nature-Throid (Thyroid) 48.75 Mg Tab 48.75 Mg PO QAM 08/10/17 Reported D3 Maximum Strength (Cholecalciferol) 5,000 Unit Cap 5,000 Units PO QAM 08/10/17 Reported Zofran Odt (Ondansetron HCl) 4 Mg Tab 4 Mg SL Q6H 08/06/17 Rx Oxycodone HCl 5 Mg Tab 5-10 Mg PO Q4H PRN 30 02/14/17 Rx Prometrium (Progesterone) 100 Mg Cap 150 Mg PO HS 04/07/16 Reported Kp Melatonin (Melatonin) 3 Mg Tab 3 Mg PO HS 12/31/15 Reported Inpatient Medications: Current Inpatient Medications Medications (Trade) Dose Ordered Sig/Mitra Route Start Time Stop Time Status Last Admin Dose Admin Potassium Chloride/Sodium Chloride 1,000 ml @ 75 mls/hr [id number] ONCE IV 08/15/17 02:00 09/14/17 00:00 08/15/17 02:42 75 MLS/HR Enoxaparin Sodium (Lovenox Inj) 40 mg Q24H SQ 08/15/17 09:00 09/14/17 08:59 Acetaminophen (Tylenol Tab) 650 mg Q4H PRN PO 08/15/17 01:45 10/18/17 01:44 Ketorolac Tromethamine (Toradol Inj) 30 mg Q6H PRN IV 08/15/17 01:45 08/20/17 01:44 08/15/17 02:40 30 MG Ondansetron HCl (Zofran Inj) 4 mg Q6H PRN IV 08/15/17 01:45 09/14/17 01:44 Promethazine HCl 12.5 mg/Sodium Chloride 50.5 ml @ 204 mls/hr Q6H PRN IV 08/15/17 01:45 09/14/17 01:44 Phenazopyridine HCl (Pyridium Tab) 200 mg TID PRN PO 08/15/17 01:45 09/14/17 01:44 08/15/17 02:58 200 MG Ceftriaxone Sodium 1 gm/ Dextrose 50 ml @ 100 mls/hr Q24H IV 08/16/17 00:00 08/24/17 00:29 Oxycodone/ Acetaminophen (Percocet 5-325mg Tab) pain not relieved by ot... Q4H PRN PO 08/15/17 01:45 08/29/17 01:44 Ibuprofen (Advil Tab) 400 mg Q6H PRN PO 08/15/17 01:45 09/14/17 01:44 Morphine Sulfate (MoRPHine SULFATE INJ) 4 mg Q4H PRN IV 08/15/17 01:45 08/29/17 01:44 08/15/17 06:11 4 MG Lorazepam (Ativan Inj) 0.5 mg Q4H PRN IV 08/15/17 01:45 09/14/17 01:44 Oxybutynin Chloride (Ditropan Tab) 5 mg TID PO 08/15/17 09:00 09/14/17 08:59 UNV Polyethylene (Miralax Powder Packet) 17 gm DAILY PO 08/15/17 09:00 09/14/17 08:59 UNV Docusate Sodium (coLACE CAP) 100 mg BID PO 08/15/17 09:00 09/14/17 08:59 UNV Bisacodyl (Dulcolax Supp) 10 mg PRN PRN MA 08/15/17 08:15 09/14/17 08:14 UNV Review of Systems Review of Systems Constitutional: No fever, No chills Eyes: No double vision Neurological: No dizzy Endocrine: No excessive thirst Gastrointestinal: + abdominal pain (right flank ), No nausea, No vomiting Cardiovascular: No chest pain Respiratory: No shortness of breath Skin: No rash Musculoskeletal: + back pain (right low back and flank ) Female : No painful urination, No blood in urine Physical Exam Vital Signs: Vital Signs Past 12 Hours Date Time Temp Pulse Resp B/P (MAP) Pulse Ox O2 Delivery O2 Flow Rate FiO2 08/15/17 07:04 36.8 72 18 115/75 (88) 92 Room Air 08/15/17 02:10 Room Air 08/15/17 02:10 36.9 87 15 128/83 (98) 91 Room Air 08/15/17 01:44 102 18 134/75 94 Room Air 08/15/17 01:02 97 08/15/17 00:04 107 18 107/60 96 Room Air 08/14/17 22:20 113 20 120/78 93 Room Air 08/14/17 20:26 37.0 111 20 120/70 96 Room Air Physical Exam: General Appearance: no apparent distress Eyes: bilateral eyes normal inspection ENT: hearing grossly normal Neck: no JVD Respiratory/Chest: no respiratory distress, no accessory muscle use Cardiovascular: no JVD Extremities: normal inspection Neurologic/Psychiatric: alert, normal mood/affect, oriented x 3 Skin: normal color Assessment & Plan Assessment & Plan A/P: UTI s/p right URS/LL AFVSS. Continue IV abx pending culture sensitivities. Would then recommend transitioning to 14 days of Cipro or Bactrim if sensitive. Stent will remain in place for now. She is currently scheduled for removal on . May need to delay stent removal for positive UC&S. Will evaluate once sensitivities return. Will add oxybutynin to Pyridium for stent discomfort. She reports severe congestion on Flomax; will avoid for now. Thanks for the consult. Will continue to follow along with primary service.
[2017-08-15] MEDS: DOCUSATE SODIUM 100 MG CAP PO SCH ×2 (08:45→21:17)
[2017-08-15] MEDS: POLYETHYLENE (MIRALAX) 17 GM PACK PO SCH (08:46)
[2017-08-15] MEDS: ENOXAPARIN 40 MG/0.4 ML SYR SQ SCH (08:46)
[2017-08-15] MEDS: OXYBUTYNIN CHLORIDE 5 MG TAB PO SCH ×3 (08:46→21:18)
[2017-08-15] MEDS: IBUPROFEN 200 MG TAB PO PRN ×2 (09:04→23:37)
[2017-08-15] MEDS: OXYCODONE/ACETAMINOPHEN 5-325 TAB PO PRN (10:46)
--- NOTE | 2017-08-15 14:46 | Progress Note ---
Internal Med Progress Note Date of Service: Aug 15, 2017. Provider Documentation: SUBJECTIVE: Seen and examined at bedside States R flank pain is controlled Has dysuria Intermittent nausea Denies CP, SOB Prefers to get the stent removed Offers no other complaints OBJECTIVE: Vital Signs-as noted below Physical Exam: General Appearance:Moderately built and nourished, no apparent distress Head: normocephalic, Atraumatic Eyes: normal inspection, EOMI, PERRL Neck: supple, Trachea midline Respiratory/Chest: Normal breath sounds, CTA Cardiovascular: S1, S2, No murmur Abdomen/GI:Soft, Right flank tender, Bowel sounds present Extremities/Musculoskelatal:normal inspection, no edema Neurologic/Psych:AAOX3, grossly no focal neurological deficits Skin: normal color, warm Lab data as noted below. ASSESSMENT & PLAN: SIRS ? complicated UTI S/P R stent replacement for kidney stone recently Continue IV Rocephin, IVF Blood/Urine cultures:pending Pain control Appreciate Urology Input Pyridium, Oxybutynin PRN No flomax secondary to severe congestion Leukocytosis resolved Hypokalemia: secondary to emesis Monitor Hypothyroidism: TSH: Normal On Nature-Thyroid at home DVT px: Lovenox subQ. Code Status: Full code. Disposition: Likely discharge home tomorrow if stable Vital Signs: Date Time Temp Pulse Resp B/P (MAP) Pulse Ox O2 Delivery O2 Flow Rate FiO2 08/15/17 07:30 Room Air 08/15/17 07:04 36.8 72 18 115/75 (88) 92 Room Air 08/15/17 02:10 Room Air 08/15/17 02:10 36.9 87 15 128/83 (98) 91 Room Air 08/15/17 01:44 102 18 134/75 94 Room Air 08/15/17 01:02 97 08/15/17 00:04 107 18 107/60 96 Room Air 08/14/17 22:20 113 20 120/78 93 Room Air 08/14/17 20:26 37.0 111 20 120/70 96 Room Air Lab Results: Results Past 24 Hours Test 08/14/17 20:50 08/15/17 00:36 08/15/17 05:20 Range/Units White Blood Count 14.64 8.81 4.8-10.8 K/uL Red Blood Count 4.69 4.17 4.2-5.4 M/uL Hemoglobin 14.3 13.0 12.0-16.0 g/dL Hematocrit 43.3 38.7 37-47 % Mean Corpuscular Volume 92.3 92.8 80-100 fL Mean Corpuscular Hemoglobin 30.5 31.2 25-34 pg Mean Corpuscular Hemoglobin Concent 33.0 33.6 32-36 g/dl Platelet Count 339 277 130-400 K/uL Mean Platelet Volume 9.1 9.6 7.4-10.4 fL Neutrophils (%) (Auto) 85.0 67.1 % Lymphocytes (%) (Auto) 7.7 23.5 % Monocytes (%) (Auto) 6.7 8.4 % Eosinophils (%) (Auto) 0.1 0.3 % Basophils (%) (Auto) 0.2 0.2 % Neutrophils # (Auto) 12.45 5.91 1.4-6.5 K/uL Lymphocytes # (Auto) 1.13 2.07 1.2-3.4 K/uL Monocytes # (Auto) 0.98 0.74 0.11-0.59 K/uL Eosinophils # (Auto) 0.01 0.03 0-0.5 K/uL Basophils # (Auto) 0.03 0.02 0-0.2 K/uL RDW Standard Deviation 42.5 42.5 36.4-46.3 fL RDW Coefficient of Variation 12.6 12.6 11.5-14.5 % Immature Granulocyte % (Auto) 0.3 0.5 % Immature Granulocyte # (Auto) 0.04 0.04 0.00-0.02 K/uL Urine Color ORANGE Urine Appearance TURBID CLEAR Urine pH 5.0 4.5-7.5 Urine Specific [place] 1.022 1.000-1.030 Urine Protein 3+ NEG Urine Glucose (UA) NEG NEG Urine Ketones NEG NEG Urine Occult Blood 3+ NEG Urine Nitrite POS NEG Urine Bilirubin 1+ NEG Urine Urobilinogen NEG NEG Urine Leukocyte Esterase MODERATE NEG Urine WBC (Auto) 10-30 0-5 /hpf Urine RBC (Auto) >30 0-4 /hpf Urine Hyaline Casts (Auto) 5-10 0-5 /lpf Urine Epithelial Cells (Auto) 20-30 0-5 /lpf Urine Bacteria (Auto) NEG NEG Urine Crystals NONE PRSENT Urine Yeast (Auto) NONE PRSENT Sodium Level 139 143 136-145 mmol/L Potassium Level 3.3 4.1 3.5-5.1 mmol/L Chloride Level 103 109 98-107 mmol/L Carbon Dioxide Level 28 28 21-32 mmol/L Anion Gap 8.0 6.0 3-11 mmol/L Blood Urea Nitrogen 19 12 7-18 mg/dl Creatinine 0.85 0.61 0.60-1.20 mg/dl Est Creatinine Clear Calc Drug Dose 85.3 118.8 ml/min Estimated GFR () 91.3 120.8 Estimated GFR (Non- 78.8 104.2 BUN/Creatinine Ratio 22.2 19.3 10-20 Random Glucose 113 89 70-99 mg/dl Calcium Level 9.1 8.5 8.5-10.1 mg/dl Magnesium Level 2.0 1.8-2.4 mg/dl Total Bilirubin 0.4 0.2-1 mg/dl Direct Bilirubin < 0.1 0-0.2 mg/dl Aspartate Amino Transf (AST/SGOT) 16 15-37 U/L Alanine Aminotransferase (ALT/SGPT) 32 12-78 U/L Alkaline Phosphatase 85 45-117 U/L Total Protein 7.3 6.4-8.2 gm/dl Albumin 4.1 3.4-5.0 gm/dl Lipase 105 73-393 U/L Thyroid Stimulating Hormone (TSH) 1.050 0.300-4.500 uIu/ml Lactic Acid Level 1.1 0.4-2.0 mmol/L Prothrombin Time 10.2 9.0-12.0 SECONDS Prothromb Time International Ratio 1.0 0.9-1.1 Hepatitis C Antibody Screen NEG NEG Microbiology Results 08/15/17 Blood Culture, Received Pending 08/15/17 Blood Culture, Received Pending 08/14/17 Urine Culture - Preliminary, Resulted NO GROWTH - LESS THAN 1,000 COLONIES/...
[2017-08-15 15:17] VITALS: BP 130/84; PULSE 67; TEMP 36.7; O2SAT 96
[2017-08-15] MEDS ORDERED: LORAZEPAM INJ 0.5 MG in SYRINGE 0.75 ML IV PRN (19:15)
[2017-08-15] MEDS ORDERED: ZOLPIDEM TARTRATE 5 MG TAB PO PRN (19:15)
[2017-08-15] MEDS ORDERED: BELLADONNA/OPIUM SUPP 60 MG SUPP PR PRN (20:00)
[2017-08-15 22:50] VITALS: BP 99/66; PULSE 71; TEMP 36.7; O2SAT 94
[2017-08-16] MEDS ORDERED: NURSING VERBAL MED ORDER ONE
[2017-08-16] MEDS ORDERED: CEFTRIAXONE SOD INJ 1 GM in DEXTROSE 5% ADD-VANTAGE 50ML 50 ML IV SCH ×2
[2017-08-16] MEDS ORDERED: SODIUM CHLORIDE 0.9% 1000ML 1,000 ML IV SCH
[2017-08-16 06:24] LABS: BASO % 0.3 %; BASO ABS # 0.02 K/uL (0-0.2); COMPLETE YES; EOS % 2.5 %; HEMATOCRIT 40.4 % (37-47); IG% 0.3 %; LYMPH % 30.9 %; LYMPH ABS # 1.99 K/uL (1.2-3.4); MEAN CELL VOLUME 95.3 fL (80-100); MEAN CORPUSCULAR HGB CONC 31.4 g/dl (32-36); MEAN PLATELET VOLUME 8.8 fL (7.4-10.4); MONO % 7.6 %; NEUT % 58.4 %; PLATELET COUNT 296 K/uL (130-400); RED BLOOD COUNT 4.24 M/uL (4.2-5.4); WHITE BLOOD COUNT 6.44 K/uL (4.8-10.8)
[2017-08-16 07:05] LABS: BUN/CREATININE RATIO 18.3 (10-20); CALCIUM 8.9 mg/dl (8.5-10.1); CREATININE 0.64 mg/dl (0.60-1.20); POTASSIUM 3.8 mmol/L (3.5-5.1)
[2017-08-16 07:08] VITALS: BP 92/61; PULSE 68; TEMP 36.6; O2SAT 96
[2017-08-16] MEDS: OXYCODONE/ACETAMINOPHEN 5-325 TAB PO PRN (07:18)
--- NOTE | 2017-08-16 08:02 | Progress Note ---
Subjective Date of Service: Aug 16, 2017. Subjective Pt evaluation today including: conversation w/ patient, chart review, lab review Voiding: no voiding problems Right ureteral stent removal by Dr. Byrd yesterday. Pt reports her pain has improved since stent removal. She continues to have some discomfort and dysuria, but overall improving. UC&S is preliminarily negative. Problem List Medical Problems: (1) Abscess of right breast Status: Acute (2) Hypothyroidism Nos Status: Chronic (3) Renal colic Status: Acute (4) Right ureteral calculus Status: Acute (5) Urinary tract infection Status: Acute Review of Systems Constitutional: No fever, No chills Respiratory: No shortness of breath Cardiac: No chest pain Abdomen: No pain, No nausea, No vomiting Female : + dysuria, No hematuria Heme: No abnormal bleeding/bruising Objective Vital Signs Date Time Temp Pulse Resp B/P (MAP) Pulse Ox O2 Delivery O2 Flow Rate FiO2 08/16/17 07:08 36.6 68 17 92/61 (71) 96 Room Air 08/16/17 00:41 Room Air 08/15/17 22:50 36.7 71 16 99/66 (77) 94 Room Air 08/15/17 16:05 Room Air 08/15/17 15:17 36.7 67 18 130/84 (99) 96 Room Air Physical Exam General Appearance: no apparent distress Eyes: normal inspection ENT: hearing grossly normal Neck: no JVD Respiratory/Chest: no respiratory distress, no accessory muscle use Cardiovascular: no JVD Extremities: normal inspection Neurologic/Psychiatric: alert, normal mood/affect, oriented x 3 Skin: normal color Laboratory Results Last 24 Hours Test 08/16/17 06:00 White Blood Count 6.44 K/uL Red Blood Count 4.24 M/uL Hemoglobin 12.7 g/dL Hematocrit 40.4 % Mean Corpuscular Volume 95.3 fL Mean Corpuscular Hemoglobin 30.0 pg Mean Corpuscular Hemoglobin Concent 31.4 g/dl Platelet Count 296 K/uL Mean Platelet Volume 8.8 fL Neutrophils (%) (Auto) 58.4 % Lymphocytes (%) (Auto) 30.9 % Monocytes (%) (Auto) 7.6 % Eosinophils (%) (Auto) 2.5 % Basophils (%) (Auto) 0.3 % Neutrophils # (Auto) 3.76 K/uL Lymphocytes # (Auto) 1.99 K/uL Monocytes # (Auto) 0.49 K/uL Eosinophils # (Auto) 0.16 K/uL Basophils # (Auto) 0.02 K/uL RDW Standard Deviation 44.2 fL RDW Coefficient of Variation 12.7 % Immature Granulocyte % (Auto) 0.3 % Immature Granulocyte # (Auto) 0.02 K/uL Sodium Level 144 mmol/L Potassium Level 3.8 mmol/L Chloride Level 109 mmol/L Carbon Dioxide Level 29 mmol/L Anion Gap 6.0 mmol/L Blood Urea Nitrogen 12 mg/dl Creatinine 0.64 mg/dl Est Creatinine Clear Calc Drug Dose 113.2 ml/min Estimated GFR () 118.9 Estimated GFR (Non- 102.6 BUN/Creatinine Ratio 18.3 Random Glucose 84 mg/dl Calcium Level 8.9 mg/dl Assessment and Plan A/P: Right flank pain secondary to ureteral stent irritation. Pain improved since stent removal. Cr remains stable. UC&S preliminarily negative. Pt clinically improved. OK for d/c home from perspective. Recommend d/c home on 7 days of Cipro and Pyridium. Will keep outpatient f/u with Dr. Byrd next week as scheduled. Discharge planning: home
[2017-08-16] MEDS: ENOXAPARIN 40 MG/0.4 ML SYR SQ SCH (09:00)
[2017-08-16] MEDS: DOCUSATE SODIUM 100 MG CAP PO SCH (09:04)
[2017-08-16] MEDS: PHENAZOPYRIDINE HCL 200 MG TAB PO PRN (09:04)
[2017-08-16] MEDS: POLYETHYLENE (MIRALAX) 17 GM PACK PO SCH (09:04)
[2017-08-16] MEDS: OXYBUTYNIN CHLORIDE 5 MG TAB PO SCH (09:04)
--- NOTE | 2017-08-16 09:06 | Progress Note ---
Internal Med Progress Note Date of Service: Aug 16, 2017. Provider Documentation: SUBJECTIVE: Seen and examined at bedside States feeling well today R flank pain much improved after stent removal yesterday Denies CP, SOB Offers no other complaints OBJECTIVE: Vital Signs-as noted below Physical Exam: General Appearance:Moderately built and nourished, no apparent distress Head: normocephalic, Atraumatic Eyes: normal inspection, EOMI, PERRL Neck: supple, Trachea midline Respiratory/Chest: Normal breath sounds, CTA Cardiovascular: S1, S2, No murmur Abdomen/GI:Soft, Right flank tender, Bowel sounds present Extremities/Musculoskelatal:normal inspection, no edema Neurologic/Psych:AAOX3, grossly no focal neurological deficits Skin: normal color, warm Lab data as noted below. ASSESSMENT & PLAN: SIRS ? complicated UTI: ruled out. Cultures negative S/P R stent removal POD #1 On IV Rocephin Day #2 DC IVF Blood/Urine cultures:Negative Pain control Appreciate Urology Input Pyridium, PRN Leukocytosis resolved Hypokalemia: Resolved secondary to emesis Monitor Hypothyroidism: TSH: Normal On Nature-Thyroid at home DVT px: Lovenox subQ. Code Status: Full code. Disposition: Plan to discharge home today Follow up with on 08/19/17 at 10:45am at [facility] office Follow up with your Urologist in 1 week as advised Complete the antibiotic course as prescribed Seek immediate medical attention if your symptoms reoccur or worsen Vital Signs: Date Time Temp Pulse Resp B/P (MAP) Pulse Ox O2 Delivery O2 Flow Rate FiO2 08/16/17 07:13 Room Air 08/16/17 07:08 36.6 68 17 92/61 (71) 96 Room Air 08/16/17 00:41 Room Air 08/15/17 22:50 36.7 71 16 99/66 (77) 94 Room Air 08/15/17 16:05 Room Air 08/15/17 15:17 36.7 67 18 130/84 (99) 96 Room Air Lab Results: Results Past 24 Hours Test 08/16/17 06:00 Range/Units White Blood Count 6.44 4.8-10.8 K/uL Red Blood Count 4.24 4.2-5.4 M/uL Hemoglobin 12.7 12.0-16.0 g/dL Hematocrit 40.4 37-47 % Mean Corpuscular Volume 95.3 80-100 fL Mean Corpuscular Hemoglobin 30.0 25-34 pg Mean Corpuscular Hemoglobin Concent 31.4 32-36 g/dl Platelet Count 296 130-400 K/uL Mean Platelet Volume 8.8 7.4-10.4 fL Neutrophils (%) (Auto) 58.4 % Lymphocytes (%) (Auto) 30.9 % Monocytes (%) (Auto) 7.6 % Eosinophils (%) (Auto) 2.5 % Basophils (%) (Auto) 0.3 % Neutrophils # (Auto) 3.76 1.4-6.5 K/uL Lymphocytes # (Auto) 1.99 1.2-3.4 K/uL Monocytes # (Auto) 0.49 0.11-0.59 K/uL Eosinophils # (Auto) 0.16 0-0.5 K/uL Basophils # (Auto) 0.02 0-0.2 K/uL RDW Standard Deviation 44.2 36.4-46.3 fL RDW Coefficient of Variation 12.7 11.5-14.5 % Immature Granulocyte % (Auto) 0.3 % Immature Granulocyte # (Auto) 0.02 0.00-0.02 K/uL Sodium Level 144 136-145 mmol/L Potassium Level 3.8 3.5-5.1 mmol/L Chloride Level 109 98-107 mmol/L Carbon Dioxide Level 29 21-32 mmol/L Anion Gap 6.0 3-11 mmol/L Blood Urea Nitrogen 12 7-18 mg/dl Creatinine 0.64 0.60-1.20 mg/dl Est Creatinine Clear Calc Drug Dose 113.2 ml/min Estimated GFR () 118.9 Estimated GFR (Non- 102.6 BUN/Creatinine Ratio 18.3 10-20 Random Glucose 84 70-99 mg/dl Calcium Level 8.9 8.5-10.1 mg/dl
[2017-08-16] MEDS ORDERED: PHEN-775 PO (09:11)
[2017-08-16] MEDS ORDERED: CPR500 PO (09:11)
--- NOTE | 2017-08-16 09:16 | Discharge Summary ---
Discharge Summary Date of Service Aug 16, 2017. Discharge Summary Admission Date: Aug 15, 2017 at 01:24 Discharge Date: Aug 16, 2017 Discharge Disposition: Home Principal Diagnosis: Right Flank pain secondary to stent irritation Procedures: Renal USD; 1. Mild right-sided hydronephrosis 2. Right-sided nephroureteral stent. KUB: Interval placement of right ureteral stent. Nonvisualization of the previously noted calculus in the mid to distal right ureter. Consultations: Urology Pending Studies/Follow-Up: Follow up with on 08/19/17 at 10:45am at [facility] office Follow up with your Urologist in 1 week as advised Complete the antibiotic course as prescribed Seek immediate medical attention if your symptoms reoccur or worsen Medication Reconciliation New Medications: Ciprofloxacin (Ciprofloxacin HCl) 500 Mg Tab 500 MG PO BID for 7 Days, #14 TAB Continued Medications: Cholecalciferol (D3 Maximum Strength) 5,000 Unit Cap 5000 UNITS PO QAM Melatonin (Kp Melatonin) 3 Mg Tab 3 MG PO HS Ondasetron Odt (Zofran Odt) 4 Mg Tab 4 MG SL Q6H for Nausea, #10 TAB Oxycodone HCl (Oxycodone HCl) 5 Mg Tab 5-10 MG PO Q4H PRN for Moderate - severe pain for 30 Days, #90 TAB Phenazopyridine Hcl (Pyridium) 200 Mg Tab 200 MG PO TID PRN for spasms for 7 Days, #21 TAB (This prescription has been renewed) Progesterone (Prometrium) 100 Mg Cap 150 MG PO HS, CAP Thyroid (Nature-Throid) 48.75 Mg Tab 48.75 MG PO QAM [Adapten-All] () 2 CAP PO BID [Estradiol/Espriol] () 0.5 ML TOP QAM [Puremethylation] () 1 CAP PO QAM Discontinued Medications: Cephalexin Monohydrate (Keflex) 500 Mg Cap 500 MG PO TID, #6 CAP Admission Information HPI (per Admitting provider): CHIEF COMPLAINT: Right flank pain, nausea and vomiting. HISTORY OF PRESENT ILLNESS: Hx obtained from patient and records. Medical history of significant for urolithiasis, endometriosis, hyperlipidemia, hypothyroidism as per records. Recent confinement last January 2017 for lumbar disk herniation sp surgery. A few days ago, patient underwent stent placement for R kidney stone outpatient. Patient had a tolerable achy right flank pain after procedure, hematuria sx as well. Yesterday afternoon, worsening of right flank pain, nausea, vomiting. Good bowel movement. No fever or chills. Brought to the ER. Patient given Ceftriaxone. Physical Exam (per Admitting): PHYSICAL EXAMINATION: VITAL SIGNS: Blood pressure was noted to be 120/70; pulse rate 111, later 87; respiratory rate 27, sats 96% on room air. GENERAL: Noted to be uncomfortable, obese, no respiratory distress. SKIN: Normal color. HEENT: [place] palpebral conjunctivae. Dry mucosa. NECK: No JVD. Supple. CHEST: Clear to auscultation. HEART: Regular rate and rhythm. ABDOMEN: Some distention, NT BACK : right flank tenderness. EXTREMITIES: No edema. No tenderness NEUROLOGIC: No gross focality. Hospital Course SIRS ? complicated UTI: ruled out. Cultures negative S/P R stent removal POD #1 On IV Rocephin Day #2 DC IVF Blood/Urine cultures:Negative Pain control Appreciate Urology Input Pyridium, PRN Leukocytosis resolved Hypokalemia: Resolved secondary to emesis Monitor Hypothyroidism: TSH: Normal On Nature-Thyroid at home DVT px: Lovenox subQ. Code Status: Full code. Disposition: Plan to discharge home today Follow up with on 08/19/17 at 10:45am at [facility] office Follow up with your Urologist in 1 week as advised Complete the antibiotic course as prescribed Seek immediate medical attention if your symptoms reoccur or worsen Total time spent on discharge = 33 minutes This includes examination of the patient, discharge planning, medication reconciliation, and communication with other providers. Discharge Instructions Discharge Instructions Date of Service Aug 16, 2017. Admission Reason for Admission: Sepsis Discharge Discharge Diagnosis / Problem: Right Flank pain secondary to stent irritation Discharge Goals Goal(s): Decrease discomfort, Improve function Activity Recommendations Activity Limitations: resume your previous activity Exercise/Sports Limitations: as tolerated Driving or Machine Use: Cautious about drivin while on opiod pain medications . Instructions / Follow-Up Instructions / Follow-Up Follow up with on 08/19/17 at 10:45am at [facility] office Follow up with your Urologist in 1 week as advised Complete the antibiotic course as prescribed Seek immediate medical attention if your symptoms reoccur or worsen Current Hospital Diet Patient's current hospital diet: Regular Diet Discharge Diet Recommended Diet: Regular Diet Pending Studies Studies pending at discharge: no Medical Emergencies . Who to Call and When: Medical Emergencies: If at any time you feel your situation is an emergency, please call 911 immediately. . Non-Emergent Contact Non-Emergency issues call your: Primary Care Provider, Urologist Call Non-Emergent contact if: you have a fever, your pain is not controlled, your pain is worsening, your pain is unusual for you, your pain is concerning you, you have any medication questions Seek immediate medical attention if your symptoms reoccur or worsen . . "Provider Documentation" section prepared by Justin Bowling. . VTE Core Measure Inpt VTE Proph given/why not?: Enoxaparin (Lovenox)SQ <Electronically signed by Justin Bowling MD> Signed: 08/16/17 0915 Signed: The status of this report is Signed * If report status is Draft, the document has not been finalized by the responsible provider.
[2017-08-16 09:52] VITALS: BP 92/61; PULSE 68; TEMP 36.6; O2SAT 96
== END 2017-08-16 10:29 | disposition home or self-care (01) | DRG 700 ==
LOC: C.EDB 20:20 → C.3E 08-15 01:24 → CANRESERV 08-15 01:37 → ENRESERV 08-15 01:37
PROVIDERS: ADMIT Internal Medicine; ATTEND Internal Medicine
PROC: 0TP9XDZ Removal of Intraluminal Device from Ureter, External Approach (ICD-10-PCS; principal; 2017-08-15)
DX: T83.84XA Pain due to genitourinary prosthetic devices, implants and grafts, initial encounter (principal); Y83.1 Surgical operation with implant of artificial internal device as the cause of abnormal reaction of the patient, or of later complication, without mention of misadventure at the time of the procedure; Z96.0 Presence of urogenital implants; E87.6 Hypokalemia; E03.9 Hypothyroidism, unspecified; Z87.442 Personal history of urinary calculi; Z87.42 Personal history of other diseases of the female genital tract; Z90.710 Acquired absence of both cervix and uterus; Z88.0 Allergy status to penicillin; Z84.1 Family history of disorders of kidney and ureter; Z84.2 Family history of other diseases of the genitourinary system; Z82.49 Family history of ischemic heart disease and other diseases of the circulatory system

== ENCOUNTER → 2017-08-23 | Outpatient (CLI) | payer BC ==
[~2017-08-23] MED LIST changes: -CEPH500C2 PO; +CPR500 PO; +OPTIRAY 320 IV PRN; -OXYC1TAB3 PO; -OXYC7.5T65 PO; -TAMS0.4C38 PO
--- NOTE | 2017-08-23 09:39 | DIAGNOSTIC IMAGING REPORT ---
ABDOMEN AND PELVIS CT WITH AND WITHOUT IV CONTRAST, UROGRAM PROTOCOL CT DOSE: 1049.23 mGy.cm HISTORY: Ureteral stone. Assess for infection. TECHNIQUE: Multiaxial CT images of the abdomen and pelvis were performed both before and after the use of intravenous contrast to evaluate the urinary system. Maximal intensity projection images were performed at the workstation by the radiologist. A dose lowering technique was utilized adhering to the principles of ALARA. COMPARISON STUDY: Renal ultrasound 08/14/2017. Abdomen and pelvis CT 08/06/2017. FINDINGS: No renal or ureteral calculi. No hydronephrosis. The right ureteral stone has passed in the interval. The bladder is decompressed. No bladder calculi present. Linear densities within the lung bases consistent with subsegmental atelectasis. No suspicious lytic or blastic osseous lesions. Posterior decompression and fusion within the lower lumbar spine. Stable hypodense lesions within the liver consistent with cysts. The gallbladder, spleen, adrenal glands, and pancreas are unremarkable. The kidneys enhance normally. There are few small bilateral peripelvic renal cysts. Mild urothelial thickening within the right ureter. Stable cystic lesions within the right ovary with the largest measuring 2.4 cm. Small fat-containing structure within the right deep pelvis with mild surrounding inflammatory change. This is consistent with an epiploic appendagitis. This measures 1.5 cm. This is similar to the prior study. Stable 1.5 cm partially calcified right breast nodule. This likely represents a fibroadenoma. No retroperitoneal lymphadenopathy. No bowel wall thickening or obstruction. Normal appendix. IMPRESSION: 1. The right ureteral stone has passed in the interval. No renal or ureteral calculi. No hydronephrosis. 2. Mild urothelial thickening within the right ureter which could be reactive to the recently passed stone or represent a mild infectious pyelitis. 3. Stable 1.5 cm fat-containing structure within the right deep pelvis with mild surrounding inflammatory change. This is consistent with a mild epiploic appendagitis. Electronically signed by: Ricky Langford M.D. 08/23/2017 9:37 AM Dictated Date/Time: 08/23/2017 9:25 AM
== END | disposition home or self-care (01) ==
LOC: C.CTS 08:11
PROVIDERS: ATTEND Urology
DX: N20.1 Calculus of ureter (principal); R93.8 Abnormal findings on diagnostic imaging of other specified body structures

== ENCOUNTER → 2017-10-10 | Outpatient (CLI) | payer BC ==
[~2017-10-10] MED LIST changes: -OPTIRAY 320 IV PRN
--- NOTE | 2017-10-10 09:04 | DIAGNOSTIC IMAGING REPORT ---
EXAMINATION: RENAL ULTRASOUND CLINICAL HISTORY: K52.9 URETERAL CALCULUS COMPARISON STUDY: CT scan dated 08/23/2017, renal ultrasound dated 08/14/2017 FINDINGS: The right kidney measures 12.1 cm. The left kidney measures 11.3 cm. There is no evidence of hydronephrosis. There are left renal parapelvic cysts. No bladder abnormalities are visualized. Bilateral ureteral jets were visualized. There is a 3 cm right lobe hepatic cyst. IMPRESSION : 1. Interval removal of the right-sided nephroureteral stent 2. No evidence of hydronephrosis Electronically signed by: Joshua Leach M.D. 10/10/2017 9:02 AM Dictated Date/Time: 10/10/2017 9:00 AM
--- NOTE | 2017-10-10 09:19 | DIAGNOSTIC IMAGING REPORT ---
KUB CLINICAL HISTORY: 52 years-old Female presenting with K52.9, history of right ureteral stent for right ureteral calculus. TECHNIQUE: Single supine view of the abdomen was obtained. COMPARISON: 08/14/[address] from 08/06/2017. FINDINGS: Interval removal of the right ureteral stent. No calcifications project over the renal shadows or along the courses of the ureters. Multiple phleboliths unchanged in distribution. Nonobstructive bowel gas pattern with mild stool burden. No gross pneumoperitoneum. Posterior lumbar fusion of L4-5 with interbody spacers at L4-5 and L5-S1. Laminectomy defects at L4-5 with bone graft material noted. IMPRESSION: 1. Interval removal of the right ureteral stent. No radiographic evidence of renal or ureteral calculi. Electronically signed by: Neel Yepez M.D. 10/10/2017 9:18 AM Dictated Date/Time: 10/10/2017 9:16 AM
== END | disposition home or self-care (01) ==
LOC: C.ULTR 08:27
PROVIDERS: ATTEND Urology
DX: K52.9 Noninfective gastroenteritis and colitis, unspecified (principal); N20.1 Calculus of ureter

== ENCOUNTER → 2017-12-26 | Outpatient (CLI) | payer OTHER | END | disposition home or self-care (01) | LOC: C.LAB1850 14:25 | PROVIDERS: ATTEND Internal Medicine Nephrology | DX: E21.3 Hyperparathyroidism, unspecified (principal) ==

== ENCOUNTER → 2018-04-10 | Outpatient (CLI) | payer OTHER ==
[~2018-04-10] MED LIST changes: -ONDA4TAB10 SL
--- NOTE | 2018-04-10 09:26 | DIAGNOSTIC IMAGING REPORT ---
KUB HISTORY: Follow-up study in a patient with nephrolithiasis N20.0 Nephrolithiasis COMPARISON: None. FINDINGS: The bowel gas pattern is non-obstructive. There is no organomegaly. No definite renal or ureteral calculi identified. Calcifications of the pelvis are redemonstrated suggesting phleboliths. No pneumoperitoneum or pneumatosis. No fracture. Discectomy changes at L4-L5 and L5-S1 with posterior interbody radhika and screw fusion hardware at L4-L5. Moderate degenerative changes about the bilateral hips. IMPRESSION: No renal or ureteral calculi identified. Electronically signed by: Gigi Patel M.D. 04/10/2018 9:25 AM Dictated Date/Time: 04/10/2018 9:23 AM
--- NOTE | 2018-04-10 09:51 | DIAGNOSTIC IMAGING REPORT ---
RENAL ULTRASOUND CLINICAL HISTORY: Nephrolithiasis. COMPARISON STUDY: Renal ultrasound October 10, 2017, CT of the abdomen and pelvis August 06, 2017 and KUB April 10, 2018. TECHNIQUE: Sonography of the kidneys and the urinary bladder was performed. FINDINGS: The right kidney measures 12 cm in maximal dimension and the left measures 11 cm. There is no hydronephrosis. Incidental note is made of left-sided parapelvic cysts. Echogenic foci within the right renal sinus are probably artifactual. Calculi could appear similar. These measure up to 7 mm. Neither ureteral jet was identified. Renal echogenicity, size and cortical thickness are normal. IMPRESSION: 1. No hydronephrosis. 2. Echogenic foci within the right renal sinus which are likely artifactual. Calculi could appear similar although are considered less likely. Electronically signed by: Harrison Ash M.D. 04/10/2018 9:50 AM Dictated Date/Time: 04/10/2018 9:47 AM
== END | disposition home or self-care (01) ==
LOC: C.ULTR 09:03
PROVIDERS: ATTEND Urology
DX: N20.0 Calculus of kidney (principal)

== ENCOUNTER 2021-12-09 07:45 | Inpatient (IN) ==
--- NOTE | 2021-12-09 08:27 | Emergency Department Note ---
Impression & Plan Lumbar stenosis with neurogenic claudication, Intractable back pain ED Provider Note CHIEF COMPLAINT: Back pain, referred by Dr. Vera HISTORY OF PRESENT ILLNESS: This 56-year-old female patient presents to the emergency department at the recommendation of Dr. eVra. The patient has known intervertebral disc extrusion and left lumbar radiculopathy with weakness of the left lower extremity. She was seen by Dr. Vera and referred to the emergency department for her symptoms. The patient reports ongoing low back pain, progressing for about the past week. She has been on Medrol Dose pack, OxyIR without relief. Pain is worse with sitting and walking. No fever, chills, nausea, vomiting, abdominal pain, SOB, chest pain, bowel or bladder incontinence, numbness/tingling in her groin. No loss of control of her bowel or bladder. Pain is 7/10. She has not taken any medication yet this morning. REVIEW OF SYSTEMS: A 10 system review of systems was performed with positives and pertinent negatives listed in the history of present illness. All other systems were reviewed and are negative. ALLERGIES: PCN PHYSICAL EXAM: VITALS: Vitals are noted on the nurse's note and reviewed by myself. Vital signs stable. GENERAL: This is a 56-year-old white female, in no acute distress, no ndiaphoretic, well-developed well-nourished. SKIN: The skin was without rashes, erythema, edema, or bruising. There is no tenting of the skin. Capillary refill less than 2 seconds. HEAD: Normocephalic atraumatic. EYES: Conjunctivae without injection, sclerae without icterus. NECK: Supple without nuchal rigidity. No lymphadenopathy. Cervical spine is nontender. HEART: Regular rate and rhythm without murmurs gallops or rubs. LUNGS: Clear to auscultation bilaterally without wheezes, rales or rhonchi. No retractions or accessory muscle use. ABDOMEN: Positive bowel sounds x 4. Soft, nontender, without masses or organomegaly. No guarding or rebound tenderness. MUSCULOSKELETAL: No muscle atrophy, erythema, or edema noted. Full range of motion without joint tenderness in all extremities. No tenderness to palpation. Limping gait. Strength of the left lower extremity 3/5. Otherwise, strength 5/5 throughout. NEURO: Patient was alert and oriented to person place and time. Decreased sensation to light and sharp touch of the left lower extremity. No focal neurological deficits. EMERGENCY DEPARTMENT COURSE: The patient was seen and evaluated as above. IV access obtained, labs drawn. Patient medicated with morphine. Labs reviewed. Mild leukocytosis of 12.54. Suspected to be reactive and associated with the steroids the patient is currently taking. Potassium 2.9. Renal, hepatic function and other electrolytes without significant abnormality. I did discuss the case with Dr. Vera. He was aware of the patient and will get her admitted. The patient was medicated with IV Dilaudid. Please see Dr. Vera's dictation regarding ongoing management and care of this patient. Differential diagnosis includes musculoskeletal, disc herniation, fracture, metastatic disease, cord compression, discitis, sciatica, cauda equina, infection, aortic disease, renal colic, gastrointestinal, as well as other pathologies. I attest that I have personally reviewed the patient's current medication list. Patient was found to have normal blood pressure on screening and does not require follow-up. The chart was completed utilizing [employer] Speech voice recognition software. Gram matical errors, random word insertions, pronoun errors, and incomplete sentences are an occasional consequence of this system due to software limitations, ambient noise, and hardware issues. Any formal questions or concerns about the content, text, or information contained within the body of this dictation should be directly addressed to the provider for clarification. 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 Family History Mother Endometriosis Hyperthyroidism Father Hypertension Hypothyroid Brother Nephrolithiasis Denies family history of Ovarian cancer Breast cancer Colorectal cancer Social History Smoking Status: Never smoker Hx Alcohol Use: Yes Hx Substance Use: No Preferred Language: Mohawk Communication Ability: Effective Cotton Feeder Required: No Beliefs That Will Affect Care: None marital status: Current Living Situation: Spouse Other Information That Helps Us Care for You: No Feels Safe at Home: Yes Assistive Devices: None Allergies Allergies Allergy/AdvReac Type Severity Reaction Status Date / Time Penicillins Allergy Intermediate Rash Verified 02/02/21 11:19 Home Meds Home Medications Medication Instructions Recorded Confirmed ibuprofen 100 mg tablet 200 mg PO Q6H 12/05/19 12/09/21 melatonin 5 mg capsule 5 mg PO HS 12/05/19 12/09/21 estradiol 1 appful VAGINAL DAILY 02/02/21 12/09/21 progesterone micronized 200 mg 200 mg PO DAILY cap 02/02/21 12/09/21 capsule thyroid (pork) 90 mg tablet (OPERATIONS AND MAINTENANCE TECHNICAN 45 mg PO DAILY tab 02/02/21 12/09/21 Thyroid) ergocalciferol (vitamin D2) 1,000 10 mcg PO DAILY 12/09/21 12/09/21 unit capsule Previous Rx's Medication Instructions Recorded methylprednisolone 4 mg tablets in 4 mg PO DIRECTED #21 ea 12/05/21 a dose pack oxycodone 5 mg tablet (Roxicodone) 5 mg PO Q6H PRN #12 tab 12/05/21 Results & Data (ED) Vital Signs Vital Signs - 24 hr 12/09/21 07:56 12/09/21 07:58 12/09/21 09:45 Temperature 36.5 C Temperature Source Temporal Artery Scan Oral Pulse Rate 114 H Pulse Rate [Right Finger] 85 Pulse Rhythm Regular Pulse Strength Normal Respiratory Rate 20 18 Respiratory Effort / Characteristics Non-Labored Spontaneous Non-Labored Respiratory Depth Normal Normal Respiratory Pattern Regular Blood Pressure 141/77 H Blood Pressure [Left Arm] 128/56 L Blood Pressure Mean 98 Blood Pressure Mean [Left Arm] 80 Blood Pressure Position Sitting Pulse Oximetry 99 96 Oxygen Delivery Method Room Air Room Air Room Air Sepsis Recent Fever Within 48 Hours No Sepsis New/Unexplained Change in Mental Status N/A Sepsis Action Taken by Nursing No Action Required Laboratory Data Result diagrams: 12/09/21 08:16 12/09/21 08:16 Lab Results 12/09/21 12/09/21 Range/Units 08:16 08:16 WBC 12.54 H (4.8-10.8) K/uL RBC 4.83 (4.2-5.4) M/uL Hgb 15.0 (12.0-16.0) g/dL Hct 45.6 (37-47) % MCV 94.4 (80-100) fL MCH 31.1 (25-34) pg MCHC 32.9 (32-36) g/dL RDW Std Deviation 42.9 (36.4-46.3) fL RDW Coeff of Anmol 12.4 (11.5-14.5) % Plt Count 330 (130-400) K/uL MPV 9.2 (7.4-10.4) fL Immature Gran % (Auto) 0.4 % Neut % (Auto) 69.5 % Lymph % (Auto) 20.3 % [place] % (Auto) 9.4 % Eos % (Auto) 0.2 % Baso % (Auto) 0.2 % Neut # (Auto) 8.72 H (1.4-6.5) K/uL Lymph # (Auto) 2.55 (1.2-3.4) K/uL [place] # (Auto) 1.18 H (0.11-0.59) K/uL Eos # (Auto) 0.02 (0-0.5) K/uL Baso # (Auto) 0.02 (0-0.2) K/uL Immature Gran # (Auto) 0.05 H (0.00-0.02) K/uL Sodium 138 (136-145) mmol/L Potassium 2.9 L (3.5-5.1) mmol/L Chloride 102 (98-107) mmol/L Carbon Dioxide 27 (21-32) mmol/L Anion Gap 9 (3-11) BUN 26 H (6-23) mg/dl Creatinine 0.66 (0.6-1.2) mg/dl Est Cr Clr Drug Dosing Not Reportable Est GFR ( Amer) 114.5 ml/min Est GFR (Non-Af Amer) 98.8 ml/min BUN/Creatinine Ratio 39.4 H (10-20) Glucose 90 (70-99) mg/dl Calcium 9.2 (8.5-10.1) mg/dl Total Bilirubin 1.0 (0.2-1.0) mg/dl AST 12 L (13-39) U/L ALT 19 (7-52) U/L Alkaline Phosphatase 57 (34-104) U/L Total Protein 6.4 (6.0-8.3) gm/dl Albumin 4.2 (3.4-5.0) gm/dl Globulin 2.2 L (2.5-4.0) gm/dl Albumin/Globulin Ratio 1.9 (0.9-2) Administered Medications Hydromorphone HCl (Hydromorphone Inj 0.5 Mg/0.5 Ml Syr) 0.5 mg IV Q3H PRN PRN Reason: Pain Stop: 12/23/21 12:08 Last Admin: 12/09/21 12:39 Dose: 0.5 mg Documented by: [id number] Lactated Ringer's (Lr) 1,000 mls @ 75 mls/hr IV .[id number] [facility] Stop: 01/08/22 14:43 Last Admin: 12/09/21 15:36 Dose: 75 mls/hr Documented by: [id number] Magnesium Sulfate/Dextrose (Magnesium Sulfate / D5w) 1 gm in 100 mls @ 50 mls/hr IV ONE ONE Stop: 12/09/21 17:44 Last Admin: 12/09/21 16:26 Dose: 50 mls/hr Documented by: [id number] Miscellaneous (Order Awaiting Action) 1 ea N/A QS [facility] Stop: 01/08/22 15:59 Last Admin: 12/09/21 15:26 Dose: Not Given Documented by: [id number] Miscellaneous (Order Awaiting Action-Progesterone) 1 ea N/A QS [facility] Stop: 01/08/22 15:59 Last Admin: 12/09/21 15:26 Dose: Not Given Documented by: [id number] Oxycodone HCl (Oxycodone Hcl Ir 5 Mg Tab (Immediate Release)) 5 - 10 mg PO Q4H PRN PRN Reason: mod to severe pain Stop: 12/23/21 14:43 Last Admin: 12/09/21 15:36 Dose: 5 mg Documented by: [id number] Discontinued Medications Morphine Sulfate (Morphine Sulfate 4 Mg/Ml 1 Ml Carp\Vial) 4 mg IV NOW STA Stop: 12/09/21 09:33 Last Admin: 12/09/21 10:05 Dose: 4 mg Documented by: [id number] Ondansetron HCl (Ondansetron Inj 2 Mg/Ml 2 Ml Vial) 4 mg IV NOW STA Stop: 12/09/21 09:33 Last Admin: 12/09/21 10:04 Dose: 4 mg Documented by: [id number] Potassium Chloride (Potassium Chloride Crtab 20 Meq Tabcr) 40 meq PO NOW STA Stop: 12/09/21 10:37 Last Admin: 12/09/21 10:59 Dose: 40 meq Documented by: [id number] Discharge Plan Visit Data Chief Complaint: Back Injury/Pain Stated Complaint: bludging disc in lower back, pain intense ED Provider: Iván Dodge ED Midlevel Provider: Cammie Rinaldi Discharge Problem: Lumbar stenosis with neurogenic claudication, Intractable back pain Patient Disposition: Admitted As Inpatient Discharge Instructions Interventions: ED Discharge Assessment Last Done: 12/09/21 13:55
[2021-12-09 08:32] LABS: Basophils # (auto) 0.02 K/uL (0-0.2); Basophils % (auto) 0.2 %; Eosinophils # (auto) 0.02 K/uL (0-0.5); Eosinophils % (auto) 0.2 %; Hematocrit (blood only) 45.6 % (37-47); Immature Granulocytes # (auto) 0.05 K/uL (0.00-0.02); Immature Granulocytes % (auto) 0.4 %; Lymphocytes # (auto) 2.55 K/uL (1.2-3.4); Lymphocytes % (auto) 20.3 %; Mean Corpuscular Hemoglobin 31.1 pg (25-34); Mean Corpuscular Hgb Conc 32.9 g/dL (32-36); Mean Corpuscular Volume 94.4 fL (80-100); Mean Platelet Volume 9.2 fL (7.4-10.4); Monocytes # (auto) 1.18 K/uL (0.11-0.59); Monocytes % (auto) 9.4 %; Neutrophils # (auto) 8.72 K/uL (1.4-6.5); Neutrophils % (auto) 69.5 %; Platelet Count 330 K/uL (130-400); RDW Coefficient of Variation 12.4 % (11.5-14.5); RDW Standard Deviation 42.9 fL (36.4-46.3); Red Blood Count 4.83 M/uL (4.2-5.4); White Blood Count 12.54 K/uL (4.8-10.8)
[2021-12-09 09:26] LABS: Alanine Aminotransferase 19 U/L (7-52); Albumin Globulin Ratio 1.9 (0.9-2); Albumin Level 4.2 gm/dl (3.4-5.0); Alkaline Phosphatase 57 U/L (34-104); Aspartate Aminotransferase 12 U/L (13-39); Blood Urea Nitrogen 26 mg/dl (6-23); Calcium 9.2 mg/dl (8.5-10.1); Chloride 102 mmol/L (98-107); Globulin 2.2 gm/dl (2.5-4.0); Glucose 90 mg/dl (70-99); Potassium 2.9 mmol/L (3.5-5.1); Sodium 138 mmol/L (136-145); Total Protein 6.4 gm/dl (6.0-8.3)
[2021-12-09] MEDS ORDERED: MoRPHine SULFATE 4 MG/ML 1 ML CARP\\VIAL IV STA (09:32)
[2021-12-09] MEDS ORDERED: ONDANSETRON INJ 2 MG/ML 2 ML VIAL IV STA (09:32)
[2021-12-09 09:47] LABS: Anion Gap 9 (3-11); BUN Creatinine Ratio 39.4 (10-20); Carbon Dioxide 27 mmol/L (21-32); Est GFR (African American) 114.5 ml/min; Est GFR (Non-African American) 98.8 ml/min
[2021-12-09] MEDS ORDERED: POTASSIUM CHLORIDE CRTAB 20 MEQ TABCR PO STA (10:36)
--- NOTE | 2021-12-09 10:51 | History & Physical Report ---
Date of Service December 09, 2021 Assessment & Plan (1) Lumbar disc herniation with radiculopathy: Plan: Assessment lumbar discrimination L3-L4 with severe spinal stenosis and progressive neuro deficit. Plan at this time the patient continues to decline with leg weakness affecting left lower extremity particular the quadricep consistent with an L3-L4 disc herniation. I am recommending urgent lumbar decompression fusion L3-L4 with removal instrumentation L4-L5. Risk benefits pros cons alternatives were outlined in detail. We will have her evaluated by the medical service and anesthesia and plan for surgery as soon as possible. History of Present Illness Chief Complaint: Severe left leg pain with weakness Primary Care Provider: NO PCP This is a 56-year-old female that presents now twice to the emergency room with complaints of severe back left leg pain with progressive strength deficit. She does have known massive disc herniation L3-L4 with cephalad migration. This is causing severe spinal stenosis and neural compression. She notes pain rating into the buttock anterior lateral thigh below her knee. She describes the leg giving way on a regular basis. She is unable to find a comfortable position. She has tried oral steroids and narcotics with little to no relief. Allergies Allergy/AdvReac Type Severity Reaction Status Date / Time Penicillins Allergy Intermediate Rash Verified 02/02/21 11:19 Home Medications Medication Instructions Recorded Confirmed Type ibuprofen 100 mg tablet 200 mg PO Q6H 12/05/19 12/09/21 History melatonin 5 mg capsule 5 mg PO HS 12/05/19 12/09/21 History estradiol 1 appful VAGINAL DAILY 02/02/21 12/09/21 History progesterone micronized 200 mg 200 mg PO DAILY cap 02/02/21 12/09/21 History capsule thyroid (pork) 90 mg tablet (SOLAR FIELD SERVICE TECHNICIAN 45 mg PO DAILY tab 02/02/21 12/09/21 History Thyroid) methylprednisolone 4 mg tablets in 4 mg PO DIRECTED #21 ea 12/05/21 12/09/21 Rx a dose pack oxycodone 5 mg tablet (Roxicodone) 5 mg PO Q6H PRN #12 tab 12/05/21 12/09/21 Rx ergocalciferol (vitamin D2) 1,000 10 mcg PO DAILY 12/09/21 12/09/21 History unit capsule 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 She is most comfortable standing and leaning over the bed. She exhibits a 3/5 left quadriceps 4/5 left dorsiflexion sensory markedly diminished left lower extremity compared to the right. She is 5/5 right plantar flexion dorsiflexion. She is severe tension signs straight leg raising on the left and contralateral signs on the right. Deep tendon reflexes are diminished. Results & Data ([facility]) Vital Signs (Past 12 Hours) Vital Signs Temp Pulse Pulse Resp BP BP Pulse Ox 12/09/21 09:45 85 18 128/56 L 96 12/09/21 07:56 36.5 C 114 H 20 141/77 H 99 Code Status & VTE Plan VTE Prophylaxis Plan VTE Prophylaxis will be ordered: Yes
[2021-12-09] MEDS: HYDROmorphone INJ 0.5 MG/0.5 ML SYR IV PRN (12:39)
[2021-12-09] MEDS ORDERED: LORazepam 0.5 MG TAB PO PRN (14:44)
[2021-12-09] MEDS ORDERED: ACETAMINOPHEN 1,000 MG/100 ML VIAL IV PRN (14:44)
[2021-12-09] MEDS ORDERED: PROMETHAZINE HCL 12.5 MG in SODIUM CHLORIDE 0.9% 50 ML IV PRN (14:44)
[2021-12-09] MEDS ORDERED: ONDANSETRON INJ 2 MG/ML 2 ML VIAL IV PRN (14:44)
[2021-12-09] MEDS ORDERED: hydrOXYzine HCl 25 MG TAB PO PRN (14:44)
[2021-12-09] MEDS ORDERED: MAGNESIUM HYDROXIDE SUSP 30 ML UDC PO PRN (14:44)
[2021-12-09] MEDS ORDERED: ONDANSETRON 4 MG OD TAB PO PRN (14:44)
[2021-12-09] MEDS ORDERED: LORazepam 0.5 MG/1 ML VIAL IV PRN (14:44)
[2021-12-09] MEDS ORDERED: HYDROmorphone INJ 1 MG/ML SYRINGE IV PRN (14:44)
[2021-12-09] MEDS ORDERED: NALOXONE HCL 0.4 MG/1 ML VIAL/CARP IV PRN (14:44)
[2021-12-09] MEDS ORDERED: ACETAMINOPHEN 500 MG TAB PO PRN (14:44)
[2021-12-09] MEDS ORDERED: HYDROmorphone INJ 0.5 MG/0.5 ML SYR IV PRN (14:44)
[2021-12-09] MEDS ORDERED: traMADol HCL 50 MG TABLET PO PRN (14:44)
--- NOTE | 2021-12-09 15:27 | Hospitalist Consultation ---
Date of Consultation December 09, 2021 Assessment & Plan (1) Lumbar disc herniation with radiculopathy: Patient is scheduled for L3-4 decompression fusion hardware removal by Dr. Vera on 12/10/2021 pain control be per the primary service (2) Hypothyroidism: Patient remains on thyroid replacement therapy at this time. (3) Electrolyte abnormality: Patient will have her potassium repleted and given a gram of magnesium both levels will be checked on 12/10/2021 (4) DVT prophylaxis: DVT preventions SCDs. We will plan on checking the patient postoperatively if she is doing well on postoperative day 1 due to her lack of significant medical problems and relatively young age we may consider following with chart checks History of Present Illness Attending Physician: Devendra Vera, DO History of Present Illness 56-year-old female who is here with the lumbar disc herniation with severe spinal stenosis L3-4 L4-5. Generally she does have morbid obesity with BMI of 32 takes replacement thyroid medication. Is typically on topical estrogen vaginally and oral progesterone. Otherwise medications are directed at her back discomfort. Does not any have any history of prehospital chest pain pressure shortness of breath orthopnea although laying down causes her back to hurt in certain positions no history of bleeding dyscrasia Allergies Allergy/AdvReac Type Severity Reaction Status Date / Time Penicillins Allergy Intermediate Rash Verified 02/02/21 11:19 Home Medications Medication Instructions Recorded Confirmed Type ibuprofen 100 mg tablet 200 mg PO Q6H 12/05/19 12/09/21 History melatonin 5 mg capsule 5 mg PO HS 12/05/19 12/09/21 History estradiol 1 appful VAGINAL DAILY 02/02/21 12/09/21 History progesterone micronized 200 mg 200 mg PO DAILY cap 02/02/21 12/09/21 History capsule thyroid (pork) 90 mg tablet (FLUID JET CUTTER OPERATOR 45 mg PO DAILY tab 02/02/21 12/09/21 History Thyroid) methylprednisolone 4 mg tablets in 4 mg PO DIRECTED #21 ea 12/05/21 12/09/21 Rx a dose pack oxycodone 5 mg tablet (Roxicodone) 5 mg PO Q6H PRN #12 tab 12/05/21 12/09/21 Rx ergocalciferol (vitamin D2) 1,000 10 mcg PO DAILY 12/09/21 12/09/21 History unit capsule Patient History Medical History Abdominal pain, lower Arthritis Breast lump on right side at 6 o'clock position Endometriosis Epiploic appendagitis Fibroids Hypercholesterolemia Hyperparathyroidism Hypothyroidism Inconclusive mammogram Migraine Nephrolithiasis Skin infection, bacterial Vitamin D deficiency Surgical History H/O dilation and curettage H/O lithotripsy H/O oral surgery History of back surgery History of hysterectomy, supracervical LSO, 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 Family History Mother Endometriosis Hyperthyroidism Father Hypertension Hypothyroid Brother Nephrolithiasis Denies family history of Ovarian cancer Breast cancer Colorectal cancer Social History Smoking Status: Never smoker Hx Alcohol Use: Yes Hx Substance Use: No Preferred Language: Citizen Of [place] Communication Ability: Effective Core Fitter Required: No Beliefs That Will Affect Care: None marital status: Current Living Situation: Spouse Other Information That Helps Us Care for You: No Feels Safe at Home: Yes Assistive Devices: None Review of Systems Review of Systems: Mild distress and fatigue, mostly from her back pain no headache, no visual changes no speech or swallowing issues no chest pain, pressure or palpitations no shortness of breath, cough or wheezes no abdominal pain, nausea or vomiting, diarrhea or constipation no dysuria, hematuria or frequency no focal joint pain or swelling focal lower severe back pain with radiation to left leg no bruising, bleeding or rashes no focal signs of weakness or numbness or altered sensation no complaints of anxiety or depression.. Physical Exam Physical Exam: The patient appeared well nourished and normally developed. Vital signs as documented. Head exam is normocephalic atraumatic Neck is without JVD, thyromegaly, or carotid bruits. Lungs are clear to auscultation, no focal loss of breath sounds Cardiac exam, Rhythm is regular.. No murmurs, rubs or gallops. Abdominal exam reveals normal bowel sounds, soft non tender, no masses Extremities are nonedematous and both pedal pulses are present Neurologic exam is alert and oriented, no focal loss of strength or sensation, no overt loss of strength or sensation Skin is without bruises or rashes Psychologically is without concerns for anxiety or depression.. Results & Data Results & Data ([facility]) Vital Signs (Past 12 Hours) Vital Signs Temp Pulse Pulse Resp BP BP Pulse Ox 12/09/21 13:55 81 16 97 12/09/21 13:07 81 14 128/80 94 12/09/21 12:25 95 12/09/21 11:28 90 16 97 12/09/21 09:45 85 18 128/56 L 96 12/09/21 07:56 97.7 F 114 H 20 141/77 H 99 PG Care Time/CCT Total # of Minutes Spent Total Time Spent with Patient: Total time spent is greater than 50% in coordination of care (as documented) at patient's floor/unit and/or counseling patient: Coding Level of Care Code 76218 Inpt Consult Level 2 Diagnoses Hypothyroidism E03.9 Lumbar disc herniation with radiculopathy M51.16 DVT prophylaxis Z29.9 Electrolyte abnormality E87.8
[2021-12-09] MEDS: LACTATED RINGER'S 1,000 ML IV SCH (15:36)
[2021-12-09] MEDS: oxyCODONE HCL IR 5 MG TAB (IMMEDIATE RELEASE) PO PRN ×2 (15:36→20:04)
[2021-12-09] MEDS ORDERED: MAGNESIUM SULFATE / D5W 1 GM/100 ML BAG IV ONE (15:45)
[2021-12-09] MEDS: POTASSIUM CHLORIDE CRTAB 20 MEQ TABCR PO SCH (20:03)
[2021-12-09] MEDS: MELATONIN 3 MG TAB PO SCH (20:04)
[2021-12-09 22:48] LABS: Appearance Urine Clear (Clear); Bacteria Urine Automated Negative (Negative); Bilirubin Urine Negative (Negative); Blood Urine Trace (Negative); Cast Urine Automated 0 /lpf (0-5); Color Urine Yellow; Glucose Urine UA Negative (Negative); Ketones Urine Negative (Negative); Leukocyte Esterase Urine Negative (Negative); Nitrite Urine Negative (Negative); Protein Urine Negative (Negative); RBC Urine Automated 0-4 /hpf (0-4); Specific Gravity Urine 1.011 (1.000-1.030); Urobilinogen Urine Negative (Negative); WBC Urine Automated 0 /hpf (0-5); pH Urine 6.5 (4.5-7.5)
[2021-12-10] MEDS: oxyCODONE HCL IR 5 MG TAB (IMMEDIATE RELEASE) PO PRN ×2 (04:49→23:02)
[2021-12-10] MEDS: LACTATED RINGER'S 1,000 ML IV SCH (05:45)
[2021-12-10] MEDS ORDERED: CLINDAMYCIN 600 MG in DEXTROSE 5% 50 ML IV SCH (06:00)
--- NOTE | 2021-12-10 06:59 | Anesthesiology Consultation ---
Date of Service December 10, 2021 Assessment & Plan (1) Encounter for pre-operative examination: Chart Review Chart Review: Acceptable Risk for Surgery and Patient NOT seen in Pre Admission Testing will order ecg as one not seen on file. Consults Requested none History Surgery Operation Date: 12/10/21 11:30 Proposed Procedures p L3-L4 Decompression Fusion Lumbar Hardware Removal Spinal Cord Monitoring - Devendra Vera, Height/Weight Height: 5 ft 6 in Weight: 90.9 kg Allergies Allergy/AdvReac Type Severity Reaction Status Date / Time Penicillins Allergy Intermediate Rash Verified 02/02/21 11:19 Medications Home Medications Medication Instructions Recorded Confirmed Last Taken ibuprofen 100 mg tablet 200 mg PO Q6H 12/05/19 12/09/21 Unknown melatonin 5 mg capsule 5 mg PO HS 12/05/19 12/09/21 Unknown estradiol 1 appful VAGINAL DAILY 02/02/21 12/09/21 Unknown progesterone micronized 200 mg 200 mg PO DAILY cap 02/02/21 12/09/21 Unknown capsule thyroid (pork) 90 mg tablet (MOUNTER HAND 45 mg PO DAILY tab 02/02/21 12/09/21 Unknown Thyroid) methylprednisolone 4 mg tablets in 4 mg PO DIRECTED #21 ea 12/05/21 12/09/21 Unknown a dose pack oxycodone 5 mg tablet (Roxicodone) 5 mg PO Q6H PRN #12 tab 12/05/21 12/09/21 Unknown ergocalciferol (vitamin D2) 1,000 10 mcg PO DAILY 12/09/21 12/09/21 Unknown unit capsule Active Medications Generic Name Dose Route Start Last Admin Trade Name Freq PRN Reason Stop Dose Admin Hydromorphone HCl 0.5 mg 12/09/21 12:09 12/09/21 12:39 Hydromorphone Inj 0.5 Mg/0.5 Ml Syr IV 12/23/21 12:08 0.5 mg Q3H PRN Administration Pain Lactated Ringer's 1,000 mls @ 75 mls/hr 12/09/21 14:44 12/10/21 05:45 Lr IV 01/08/22 14:43 75 mls/hr .[id number] LUIS Administration Melatonin 6 mg 12/09/21 21:00 12/09/21 20:04 Melatonin 3 Mg Tab PO 01/08/22 20:59 6 mg HS LUIS Administration Miscellaneous 1 ea 12/09/21 16:00 12/10/21 00:16 Order Awaiting Action N/A 01/08/22 15:59 Not Given QS LUIS Miscellaneous 1 ea 12/09/21 16:00 12/10/21 00:16 Order Awaiting Action-Progesterone N/A 01/08/22 15:59 Not Given QS LUIS Ondansetron HCl 4 mg 12/09/21 14:44 12/10/21 05:46 Ondansetron Inj 2 Mg/Ml 2 Ml Vial IV 01/08/22 14:43 4 mg Q6H PRN Administration Nausea &/or Vomiting Oxycodone HCl 5 - 10 mg 12/09/21 14:44 12/10/21 04:49 Oxycodone Hcl Ir 5 Mg Tab (Immediate Release) PO 12/23/21 14:43 10 mg Q4H PRN Administration mod to severe pain Potassium Chloride 40 meq 12/09/21 21:00 12/09/21 20:03 Potassium Chloride Crtab 20 Meq Tabcr PO 12/10/21 21:01 40 meq BID LUIS Administration Past Medical History Medical History Abdominal pain, lower Arthritis Breast lump on right side at 6 o'clock position Endometriosis Epiploic appendagitis Fibroids Hypercholesterolemia Hyperparathyroidism Hypothyroidism Inconclusive mammogram Migraine Nephrolithiasis Skin infection, bacterial Vitamin D deficiency Past Family History Family History Mother Endometriosis Hyperthyroidism Father Hypertension Hypothyroid Brother Nephrolithiasis Denies family history of Ovarian cancer Breast cancer Colorectal cancer Past Surgical History Surgical History H/O dilation and curettage H/O lithotripsy H/O oral surgery History of back surgery History of hysterectomy, supracervical LSO, 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 Social History Smoking Status: Never smoker Hx Alcohol Use: Yes Hx Substance Use: No Physical Exam Vital Signs Last Vital Signs Temp 36.7 C 12/09/21 22:05 Pulse 89 12/09/21 22:05 Resp 18 12/09/21 22:05 BP 111/67 12/09/21 22:05 Pulse Ox 94 12/09/21 22:05 Testing Laboratory Results 12/09/21 08:16 Urine Color Yellow 12/09/21 22:09 Urine Appearance Clear (Clear) 12/09/21 22:09 Urine pH 6.5 (4.5-7.5) 12/09/21 22:09 Ur Specific [place] 1.011 (1.000-1.030) 12/09/21 22:09 Urine Protein Negative (Negative) 12/09/21 22:09 Urine Glucose (UA) Negative (Negative) 12/09/21 22:09 Urine Ketones Negative (Negative) 12/09/21 22:09 Urine Nitrite Negative (Negative) 12/09/21 22:09 Ur Leukocyte Esterase Negative (Negative) 12/09/21 22:09 Urine WBC (Auto) 0 /hpf (0-5) 12/09/21 22:09 Urine RBC (Auto) 0-4 /hpf (0-4) 12/09/21 22:09 U Hyaline Cast (Auto) 0 /lpf (0-5) 12/09/21 22:09 U Epithel Cells (Auto) 10-20 /lpf (0-5) H 12/09/21 22:09 Urine Bacteria (Auto) Negative (Negative) 12/09/21 22:09 Blood Type A Positive 12/09/21 14:58 Antibody Screen NEGATIVE 12/09/21 14:58
[2021-12-10 07:08] LABS: BUN Creatinine Ratio 31.6 (10-20); Calcium 8.6 mg/dl (8.5-10.1); Creatinine Clr Calc Pharmacy 125.2 ml/min; Est GFR (African American) 120.1 ml/min; Est GFR (Non-African American) 103.6 ml/min; Potassium 3.8 mmol/L (3.5-5.1)
[2021-12-10] MEDS: METOCLOPRAMIDE HCL INJ 5 MG/ML 2 ML VIAL IV PRN ×2 (07:44→15:57)
[2021-12-10] MEDS: HYDROmorphone INJ 0.5 MG/0.5 ML SYR IV PRN ×2 (07:55→15:57)
[2021-12-10] MEDS: POTASSIUM CHLORIDE CRTAB 20 MEQ TABCR PO SCH ×2 (08:02→20:54)
[2021-12-10] MEDS: ARMOUR THYROID 30 MG TAB PO SCH (08:02)
[2021-12-10] MEDS: CHOLECALCIFEROL 400 UNITS 10 MCG TAB PO SCH (08:02)
--- NOTE | 2021-12-10 08:07 | Hospitalist Progress Note ---
Date of Service December 10, 2021 Assessment & Plan (1) Lumbar disc herniation with radiculopathy: Plan: Patient is scheduled for L3-4 decompression fusion hardware removal by Dr. Vera on 12/10/2021 pain control be per the primary service NPO for surgery -- down in OR now Pain control/bowel regimen/DVT prophylaxis per primary service EKG obtained pre-op --> sinus tachy. Did not see patient prior to being taken down to surgery but RN reported patient could feel elevated HR but no CP or SOB CXR no acute process. UA without evidence for infection Does have hx hypothyroidism on 45mcg daily -- last TSH in system 2017 and we will add to am labs/obtain in AM pending WBC elevated but patient had been on medrol dose pack, also could be contributing to tachycardia, however patient states she does have white coat syndrome Eval post op --> reflux hx and did note increased with steroids. Start pepcid daily and monitor response HR improved -- does note white coat syndrome Patient notes pre-DM possible --> will check A1c in AM and obtain BSG AC/HS and add insulin if needed given patient to be on steroids by primary Labs in AM (2) Hypothyroidism: Plan: Patient remains on thyroid replacement therapy at this time-- 45mcg daily TSH given tachycardia -- wnl Per review/call to pharmacy -- patient has not had this medication filled since 2019 locally, however discussion with patient she follows with [facility] Only medications filled were roxicodone and steroid from ER from most recent visit Continue current dose Synthroid F/u outpatient for continued monitoring (3) Electrolyte abnormality: Plan: Hypokalemia --> K 2.9 on admission, provided 40meq KCL and 1gm IV magnesium --> Labs this morning with K 3.8/Mag 2.0 Had not really been eating much in several days per patient, likely 2nd to poor PO intake Continue monitoring (4) DVT prophylaxis: Plan: DVT preventions SCDs. chemical contraindicated (5) GERD (gastroesophageal reflux disease): Plan: not on any home medications for such but given steroids, placed on pepcid as above and continue to monitor (6) Intractable back pain: Plan: 2nd to above. of note, patient does have hx of kidney stones but felt pain different. no hematuria (although did have blood on UA)/no CVA tenderness but difficult to elicit given recent back surgery/confounding pain No evidence of infection in either care tx of lumbar stenosis as above pain control as outlined continue to monitor Plan: Hospitalist service will follow along for now, possibly sign off after tomorrow if remains stable Admission and Anticipated Discharge Date Admission Date: December 09, 2021 Supervising Physician Co-Signing Physician Notes IRIS Supervision Note: I did not personally see or examine the patient today, but I verified all chambers points of IRIS Hidalgo's assessment and plan with the following exceptions/additions: None Subjective attempted to see patient this morning but already taken to OR. Per RN, patient had been doing alright, previous 2 back surgeries so she "knows the drill". EKG this morning with sinus tach -- per RN, patient states she could feel palpitations. Hypothyroidism on history but unclear when last TSH checked. Hypokalemia resolved on AM labs -- was given 40meq KCL and 1gm IV mag. Mag 2.0 on AM labs. Patient seen post-operatively. Doing alright, pain controlled. at bedside. Discussed elevated heart rate -- patient does feel palpitations at times but notes "white coat syndrome" and elevated as soon as any provider enters room. Also with anxiety about surgery but no shortness of breath or chest pain. She notes a history of reflux but not on medications. Discussed steroids can increase this -- she has been on them since ER and notes increased symptoms. Discussed giving dose of pepcid and will monitor as discomfort in epigastric region. She does actually follow with provider in [facility], [facility], and they have been continuing and refilling her thyroid medication and hormones. She has not moved BM since tuesday, takes dulcolax at home to assist. Will start now. She also notes they monitor routine labs and she does have a history of "pre-DM" possibly but unclear of prior A1c. Discussed will check BSG AC/HS and monitor. Notes she tolerated the potassium this morning but they are quite large and if needed in future possibly could have in pudding/applesauce. No numbness/tingling and states she can already tell strength increased to her RLE. She also has a history of kidney stones/stent placement but current discomfort different than prior, no hematuria/dysuria reported. Believes wheeled walker at home but going to check and get back to us if need rx. Therapy to eval in am. No fever, chills, chest pain Review of Systems Review of Systems: All systems reviewed & are unremarkable except as noted in HPI & below Physical Exam Physical Exam: WD/WN, laying in bed post-operatively, no acute distress, at bedside eye anicteric, pupils equal trachea midline without deviation resp even and unlabored, ctab, no w/c/r, on 2L NC SpO2 97% CV: regular, tachycardic (102bpm), no m/r/g, no edema, pulses palpable bilaterally GI: +BS, soft, tender to epigastric region, no guarding/rigidity MSK/NEURO: dressing lumbar spine c/d/i, appropriately tender to palpation, KIANA drain bloody drainage, improved strength with dorsiflexion/plantar flexion LLE, pulses palpable, NVI PSYCH: AOx3, pleasant and cooperative Results & Data Results & Data ([facility]) Vital Signs (Past 12 Hours) Vital Signs Temp Pulse Resp BP Pulse Ox 12/10/21 07:10 36.8 C 90 16 135/80 96 12/09/21 22:05 36.7 C 89 18 111/67 94 Laboratory Results 12/10/21 12/09/21 12/09/21 Range/Units 05:47 Unknown 22:09 WBC (4.8-10.8) K/uL RBC (4.2-5.4) M/uL Hgb (12.0-16.0) g/dL Hct (37-47) % MCV (80-100) fL MCH (25-34) pg MCHC (32-36) g/dL RDW Std Deviation (36.4-46.3) fL RDW Coeff of Anmol (11.5-14.5) % Plt Count (130-400) K/uL MPV (7.4-10.4) fL Immature Gran % (Auto) % Neut % (Auto) % Lymph % (Auto) % Swisher % (Auto) % Eos % (Auto) % Baso % (Auto) % Neut # (Auto) (1.4-6.5) K/uL Lymph # (Auto) (1.2-3.4) K/uL Swisher # (Auto) (0.11-0.59) K/uL Eos # (Auto) (0-0.5) K/uL Baso # (Auto) (0-0.2) K/uL Immature Gran # (Auto) (0.00-0.02) K/uL Sodium 138 (136-145) mmol/L Potassium 3.8 D (3.5-5.1) mmol/L Chloride 104 (98-107) mmol/L Carbon Dioxide 26 (21-32) mmol/L Anion Gap 8 (3-11) BUN 18 (6-23) mg/dl Creatinine 0.57 L (0.6-1.2) mg/dl Est Cr Clr Drug Dosing 125.2 Est GFR ( Amer) 120.1 ml/min Est GFR (Non-Af Amer) 103.6 ml/min BUN/Creatinine Ratio 31.6 H (10-20) Glucose 88 (70-99) mg/dl Calcium 8.6 (8.5-10.1) mg/dl Magnesium 2.0 (1.7-2.4) mg/dl Total Bilirubin (0.2-1.0) mg/dl AST (13-39) U/L ALT (7-52) U/L Alkaline Phosphatase (34-104) U/L Total Protein (6.0-8.3) gm/dl Albumin (3.4-5.0) gm/dl Globulin (2.5-4.0) gm/dl Albumin/Globulin Ratio (0.9-2) Urine Color Yellow Urine Appearance Clear (Clear) Urine pH 6.5 (4.5-7.5) Ur Specific [place] 1.011 (1.000-1.030) Urine Protein Negative (Negative) Urine Glucose (UA) Negative (Negative) Urine Ketones Negative (Negative) Urine Blood Trace H (Negative) Urine Nitrite Negative (Negative) Urine Bilirubin Negative (Negative) Urine Urobilinogen Negative (Negative) Ur Leukocyte Esterase Negative (Negative) Urine WBC (Auto) 0 (0-5) /hpf Urine RBC (Auto) 0-4 (0-4) /hpf U Hyaline Cast (Auto) 0 (0-5) /lpf U Epithel Cells (Auto) 10-20 H (0-5) /lpf Urine Bacteria (Auto) Negative (Negative) SARS-CoV-2, RNA, NAAT NEGATIVE (NEGATIVE) Blood Type Antibody Screen 12/09/21 12/09/21 12/09/21 Range/Units 14:58 08:16 08:16 WBC 12.54 H (4.8-10.8) K/uL RBC 4.83 (4.2-5.4) M/uL Hgb 15.0 (12.0-16.0) g/dL Hct 45.6 (37-47) % MCV 94.4 (80-100) fL MCH 31.1 (25-34) pg MCHC 32.9 (32-36) g/dL RDW Std Deviation 42.9 (36.4-46.3) fL RDW Coeff of Anmol 12.4 (11.5-14.5) % Plt Count 330 (130-400) K/uL MPV 9.2 (7.4-10.4) fL Immature Gran % (Auto) 0.4 % Neut % (Auto) 69.5 % Lymph % (Auto) 20.3 % Swisher % (Auto) 9.4 % Eos % (Auto) 0.2 % Baso % (Auto) 0.2 % Neut # (Auto) 8.72 H (1.4-6.5) K/uL Lymph # (Auto) 2.55 (1.2-3.4) K/uL Swisher # (Auto) 1.18 H (0.11-0.59) K/uL Eos # (Auto) 0.02 (0-0.5) K/uL Baso # (Auto) 0.02 (0-0.2) K/uL Immature Gran # (Auto) 0.05 H (0.00-0.02) K/uL Sodium 138 (136-145) mmol/L Potassium 2.9 L (3.5-5.1) mmol/L Chloride 102 (98-107) mmol/L Carbon Dioxide 27 (21-32) mmol/L Anion Gap 9 (3-11) BUN 26 H (6-23) mg/dl Creatinine 0.66 (0.6-1.2) mg/dl Est Cr Clr Drug Dosing Not Reportable Est GFR ( Amer) 114.5 ml/min Est GFR (Non-Af Amer) 98.8 ml/min BUN/Creatinine Ratio 39.4 H (10-20) Glucose 90 (70-99) mg/dl Calcium 9.2 (8.5-10.1) mg/dl Magnesium (1.7-2.4) mg/dl Total Bilirubin 1.0 (0.2-1.0) mg/dl AST 12 L (13-39) U/L ALT 19 (7-52) U/L Alkaline Phosphatase 57 (34-104) U/L Total Protein 6.4 (6.0-8.3) gm/dl Albumin 4.2 (3.4-5.0) gm/dl Globulin 2.2 L (2.5-4.0) gm/dl Albumin/Globulin Ratio 1.9 (0.9-2) Urine Color Urine Appearance (Clear) Urine pH (4.5-7.5) Ur Specific [place] (1.000-1.030) Urine Protein (Negative) Urine Glucose (UA) (Negative) Urine Ketones (Negative) Urine Blood (Negative) Urine Nitrite (Negative) Urine Bilirubin (Negative) Urine Urobilinogen (Negative) Ur Leukocyte Esterase (Negative) Urine WBC (Auto) (0-5) /hpf Urine RBC (Auto) (0-4) /hpf U Hyaline Cast (Auto) (0-5) /lpf U Epithel Cells (Auto) (0-5) /lpf Urine Bacteria (Auto) (Negative) SARS-CoV-2, RNA, NAAT (NEGATIVE) Blood Type A Positive Antibody Screen NEGATIVE PG Care Time/CCT Total # of Minutes Spent Total Time Spent with Patient: Total time spent is greater than 50% in coordination of care (as documented) at patient's floor/unit and/or counseling patient: Coding Level of Care Code 57928 Subseq Hosp Care Lvl 3 Diagnoses Lumbar disc herniation with radiculopathy M51.16 Hypothyroidism E03.9 Electrolyte abnormality E87.8 DVT prophylaxis Z29.9 GERD (gastroesophageal reflux disease) K21.9 Intractable back pain M54.9
[2021-12-10] MEDS ORDERED: Nursing to Pharmacy Communication SCH (08:30)
--- NOTE | 2021-12-10 08:30 | XRay Report ---
XR chest 1V portable HISTORY: 56 years-old Female pre-op preoperative exam. No acute chest complaints. Acute pain of the lumbar spine. COMPARISON: None TECHNIQUE: Portable upright AP view of the chest FINDINGS: The cardiomediastinal and hilar silhouettes are within normal limits. No pneumothorax, pleural effusi on, airspace consolidation or overt pulmonary edema. The bones of the chest appear grossly intact. IMPRESSION: No acute process. ACT 112: Negative or not required by law. The above report was generated using voice recognition software. It may contain grammatical, syntax o r spelling errors. Electronically signed by: Rodrigo Patel M.D. 12/10/2021 8:28 AM
--- NOTE | 2021-12-10 09:04 | History & Physical Bridge Note ---
Date of Service December 10, 2021 History & Physical Bridge Note I have examined the patient, reviewed the History & Physical and in the interval since the performance of the History & Physical I have noted the following changes of clinical significance: no changes noted Decompression fusion L3-L4 hardware removal L4-L5
[2021-12-10] MEDS ORDERED: CLINDAMYCIN 600 MG/54 ML D5W IV ONE (10:10)
[2021-12-10] MEDS ORDERED: ONDANSETRON INJ 2 MG/ML 2 ML VIAL ONE (10:13)
[2021-12-10] MEDS ORDERED: DEXAMETHASONE SOD INJ 4 MG/ML VIAL ONE (10:13)
[2021-12-10] MEDS ORDERED: fentaNYL citrate 100 MCG/2 ML VIAL ONE (10:13)
[2021-12-10] MEDS ORDERED: PROPOFOL IV EMULSION 10 MG/ML 20 ML VIAL IV ONE (10:13)
[2021-12-10] MEDS ORDERED: LIDOCAINE 2% 2 ML VIAL/AMP(20MG/ML) INFIL ONE (10:13)
[2021-12-10] MEDS ORDERED: ROCURONIUM BROMIDE 10 MG/ML 5 ML VIAL IV ONE (10:13)
[2021-12-10] MEDS ORDERED: MIDAZOLAM HCL 1 MG/ML 2ML VIAL ONE (10:13)
[2021-12-10] MEDS ORDERED: HYDROmorphone INJ 2 MG/ML SYR/VIAL IV PRN (10:38)
[2021-12-10] MEDS ORDERED: ePHEDrine sulfate 50 MG/ML AMP IV PRN (10:38)
[2021-12-10] MEDS ORDERED: PROMETHAZINE HCL 12.5 MG in SODIUM CHLORIDE 0.9% 50 ML IV PRN ×2 (10:38→14:48)
[2021-12-10] MEDS ORDERED: ATROPINE SULFATE 0.1 MG/ML 10ML SYR IV PRN (10:38)
[2021-12-10] MEDS ORDERED: ONDANSETRON INJ 2 MG/ML 2 ML VIAL IV PRN ×2 (10:38→14:48)
[2021-12-10] MEDS ORDERED: SCOPOLAMINE 1 MG TDSY TD ONE ×2 (10:38)
[2021-12-10] MEDS ORDERED: EPINEPHrine INJ 1 MG/ML AMP ONE (11:06)
[2021-12-10] MEDS ORDERED: BUPIVACAINE 0.5 % 5 MG/1 ML MPF 30ML VIAL ONE (11:06)
[2021-12-10] MEDS ORDERED: HYDROmorphone INJ 2 MG/ML SYR/VIAL ONE (12:03)
[2021-12-10] MEDS ORDERED: FLOSEAL HEMOSTATIC MATRIX 10ML TOP ONE (12:50)
--- NOTE | 2021-12-10 13:36 | Operative Report ---
Post Operative Report Pre & Post Diagnosis Operation Date: 12/10/21 11:30 Pre-Op Diagnosis: Herniated nucleus pulposus with radiculopathy L3-L4 Post-Op Diagnosis: Same I identified the patient and participated in the time-out.: Yes Procedure Operation Date: 12/10/21 11:30 Actual Procedures #1 removal of posterior instrumentation L4-L5. #2 exploration of fusion L4-L5. #3 lumbar decompression with bilateral medial facetectomies and foraminotomies L2-L3 L3-L4. #4 posterior spinal fusion L3-L4. #5 placement posterior instrumentation L3-L4 per #6 interbody fusion L3-L4. #7 placement of peek cage 13 x 22 mm at L3-L4. #8 placement locally harvested morselized autograft in the posterior gutters. #9 placement infuse collagen sponge, master graft in the posterior lateral gutters and I factor and interbody space. Surgeon Devendra Vera, Instructor [employer] Ary Locke Estimated Blood Loss 50 Findings Consistent with Post-Op Diagnosis Specimens None Indications This is a 56-year-old female who presents with a massive disc herniation and severe spinal stenosis and radiculopathy with progressive neuro deficit and is here for urgent decompression fusion. Description of Procedure Patient was met with identified informed consent obtained. Patient was then taken to the operative suite underwent a patient placed in prone position the Broxton table top Mahendra frame. All bony prominences well-padded eyes inspected to ensure no external pressure placed upon the. This point the lumbar spine was prepped and draped in normal sterile fashion. Sharp dissection with the assistance of Bovie cautery was performed down to and exposing the lamina and transverse processes of L3 and instrumentation at L4-L5 bilaterally. I then proceeded to remove the hardware bilaterally explore the fusion mass noting it to be mature and intact. Then performed complete laminectomy of L3 partial laminectomy of L2 including bilateral medial facetectomies and foraminotomies addressing severe stenosis as well as identifying massive discrimination on the left that migrated to the side of the thecal sac. After complete decompression and addressing the disc herniation pedicle screws were placed at L3 and L4 bilaterally with assistance of fluoroscopy and appropriately sized radhika placed. By way the transforaminal approach on the left complete discectomy of L3-L4 was performed endplates. To subcortically bone and a 13 x 22 mm peek cage filled with I factor tapped position. The rods were then compressed locked in final position bilaterally. The transverse processes of L3 and L4 burred to subcortical bleeding bone. Infuse collagen sponge master graft leg autograft was placed in the posterior gutters. 15 round KIANA drain inserted. The incision was then closed with 1 Vicryl the fascia 2-0 Vicryl subcutaneously and 4 Monocryl for final skin closure. Steri-Strip sterile dressings placed. Patient will continue PACU stable condition. Please note spinal cord monitoring was utilized at the procedure no changes noted. Lastly Ary Locke was present at the entire surgeon while the patient positioning complex portions of the surgery and final skin closure. I attest to the content of the Intraoperative Record and any orders documented therein. Any exceptions are noted below.
--- NOTE | 2021-12-10 14:08 | Fluoroscopy Report ---
FL lumbar spine 2-3V HISTORY: 56 years-old Female L3-L4 DECOMPRESSION COMPARISON: MRI lumbar spine December 05, 2021 TECHNIQUE: 2 spot fluoroscopic images of the lumbar spine were obtained utilizing 7.9 seconds without FINDINGS: Discectomy changes are noted at L3-L4, L4-L5 and L5-S1. Posterior interbody radhika and screw fusion hard pink at L3-L4. Interval removal of the L5 pedicle screws. Alignment appears satisfactory. No unexpect ed opaque foreign body identified. IMPRESSION: Fluoroscopic assistance as above. ACT 112: Negative or not required by law. The above report was generated using voice recognition software. It may contain grammatical, syntax o r spelling errors. Electronically signed by: Rodrigo Patel M.D. 12/10/2021 2:06 PM
[2021-12-10] MEDS: fentaNYL citrate 100 MCG/2 ML VIAL IV PRN ×2 (14:14→14:19)
--- NOTE | 2021-12-10 14:20 | Anesthesiology Progress Note ---
Date of Service December 10, 2021 Anesthesia Post Procedure Vital Signs Vital Signs: Temp Pulse Pulse Resp BP Pulse Ox 12/10/21 14:10 96 H 16 137/74 100 12/10/21 14:00 112 H 16 143/83 H 100 12/10/21 13:51 97.5 F L 94 H 16 142/76 H 99 12/10/21 10:06 98.6 F 120 H 17 149/92 H 96 12/10/21 07:10 98.2 F 90 16 135/80 96 12/09/21 22:05 98.1 F 89 18 111/67 94 12/09/21 15:07 86 137/84 97 Pain Intensity Back: Pain Intensity: 2 Transfer of Care Handoff Completed per policy Notes Mental Status: alert / awake / arousable and participated in evaluation Patient Amnestic to Procedure: Yes Nausea / Vomiting: adequately controlled Pain: adequately controlled Airway Patency, RR, SpO2: stable & adequate BP & HR: stable & adequate Hydration State: stable & adequate Anesthetic Complications: no major complications apparent and Pt Satisfied with anesthetic care
--- NOTE | 2021-12-10 14:38 | Electrocardiogram Report ---
Test Reason : Blood Pressure : / mmHG Vent. Rate : 091 BPM Atrial Rate : 091 BPM P-R Int : 140 ms QRS Dur : 074 ms QT Int : 352 ms P-R-T Axes : 054 045 040 degrees QTc Int : 432 ms Normal sinus rhythm Nonspecific T wave abnormality Anterior leads Abnormal ECG When compared with ECG of 13-FEB-2017 17:58, Nonspecific T wave abnormality, worse in Anterior leads Confirmed by Jose Roberto Tay ([id number]) on 12/10/2021 2:38:00 PM Referred By: REFERRED SELF Confirmed By:Jose Roberto Tay
[2021-12-10] MEDS ORDERED: SOD PHOSPHATE/SOD BIPHOSPHATE ENEMA 132 ML BTL PR PRN (14:48)
[2021-12-10] MEDS ORDERED: NALOXONE HCL 0.4 MG/1 ML VIAL/CARP IV PRN (14:48)
[2021-12-10] MEDS ORDERED: HYDROmorphone INJ 1 MG/ML SYRINGE IV PRN (14:48)
[2021-12-10] MEDS ORDERED: LORazepam 0.5 MG/1 ML VIAL IV PRN (14:48)
[2021-12-10] MEDS ORDERED: METOCLOPRAMIDE HCL INJ 5 MG/ML 2 ML VIAL IV PRN (14:48)
[2021-12-10] MEDS ORDERED: DO NOT ADMINISTER PNEUMOCOCCAL VACCINE PRN (14:48)
[2021-12-10] MEDS ORDERED: ONDANSETRON 4 MG OD TAB PO PRN (14:48)
[2021-12-10] MEDS ORDERED: DO NOT ADMINISTER FLU VACCINE PRN (14:48)
[2021-12-10] MEDS ORDERED: FAMOTIDINE 20 MG TAB PO PRN (14:48)
[2021-12-10] MEDS ORDERED: diphenhydrAMINE Capsule 25 MG CAP PO PRN (14:48)
[2021-12-10] MEDS ORDERED: hydrOXYzine HCl 25 MG TAB PO PRN (14:48)
[2021-12-10] MEDS ORDERED: ACETAMINOPHEN 500 MG TAB PO PRN (14:48)
[2021-12-10] MEDS ORDERED: HYDROmorphone INJ 0.5 MG/0.5 ML SYR IV PRN (14:48)
[2021-12-10] MEDS ORDERED: bisacodyL 10 MG SUPP PR PRN (14:48)
[2021-12-10] MEDS ORDERED: LORazepam 0.5 MG TAB PO PRN (14:48)
[2021-12-10] MEDS ORDERED: ALUMINUM/MAGNESIUM SUSP 30 ML UDC PO PRN (14:48)
[2021-12-10] MEDS ORDERED: ACETAMINOPHEN 1,000 MG/100 ML VIAL IV PRN (14:48)
[2021-12-10] MEDS ORDERED: LACTATED RINGER'S 1,000 ML IV SCH (15:00)
[2021-12-10] MEDS ORDERED: bisacodyL 5 MG TABEC PO PRN (15:38)
[2021-12-10] MEDS: CHECK SCOPOLAMINE PATCH PLACEMENT SCH (16:08)
[2021-12-10] MEDS: KETOROLAC TROMETHAMINE 15 MG/ML VIAL IV SCH ×2 (16:51→22:57)
[2021-12-10] MEDS: FAMOTIDINE 20 MG in SYRINGE 3 ML IV SCH (16:51)
[2021-12-10] MEDS ORDERED: SODIUM CHLORIDE 0.9% 1000ML 1,000 ML IV SCH (17:30)
[2021-12-10] MEDS: PROGESTERONE 200 MG PO SCH (17:42)
[2021-12-10] MEDS: DOCUSATE SODIUM/SENNA 50/8.6MG TAB PO SCH (20:54)
[2021-12-10] MEDS: CLINDAMYCIN 600 MG in DEXTROSE 5% 50 ML IV SCH (20:58)
[2021-12-10] MEDS ORDERED: PROGESTERONE 200 MG PO SCH (21:00)
[2021-12-10] MEDS: MELATONIN 3 MG TAB PO SCH (22:58)
[2021-12-11] MEDS: CHECK SCOPOLAMINE PATCH PLACEMENT SCH ×4 (01:21→20:03)
[2021-12-11] MEDS: CLINDAMYCIN 600 MG in DEXTROSE 5% 50 ML IV SCH (03:19)
[2021-12-11] MEDS: oxyCODONE HCL IR 5 MG TAB (IMMEDIATE RELEASE) PO PRN ×3 (03:21→12:33)
[2021-12-11] MEDS: KETOROLAC TROMETHAMINE 15 MG/ML VIAL IV SCH ×2 (03:21→10:09)
[2021-12-11 06:21] LABS: Basophils # (auto) 0.01 K/uL (0-0.2); Basophils % (auto) 0.1 %; Hematocrit (blood only) 41.5 % (37-47); Hemoglobin 13.6 g/dL (12.0-16.0); Immature Granulocytes # (auto) 0.08 K/uL (0.00-0.02); Immature Granulocytes % (auto) 0.4 %; Lymphocytes # (auto) 0.91 K/uL (1.2-3.4); Lymphocytes % (auto) 4.8 %; Mean Corpuscular Hemoglobin 31.1 pg (25-34); Mean Corpuscular Hgb Conc 32.8 g/dL (32-36); Mean Corpuscular Volume 94.7 fL (80-100); Mean Platelet Volume 9.3 fL (7.4-10.4); Monocytes # (auto) 1.44 K/uL (0.11-0.59); Monocytes % (auto) 7.5 %; Neutrophils # (auto) 16.69 K/uL (1.4-6.5); Neutrophils % (auto) 87.2 %; Platelet Count 281 K/uL (130-400); RDW Coefficient of Variation 12.4 % (11.5-14.5); RDW Standard Deviation 42.8 fL (36.4-46.3); Red Blood Count 4.38 M/uL (4.2-5.4); White Blood Count 19.13 K/uL (4.8-10.8)
[2021-12-11] MEDS: POLYETHYLENE (MIRALAX) 17 GM PACK PO SCH ×4 (06:25→22:56)
[2021-12-11 06:53] LABS: Potassium 4.9 mmol/L (3.5-5.1)
[2021-12-11 06:54] LABS: BUN Creatinine Ratio 25.4 (10-20); Calcium 8.7 mg/dl (8.5-10.1); Chol HDL Ratio 3.7; Creatinine Clr Calc Pharmacy 120.9 ml/min; Est GFR (African American) 118.8 ml/min; Est GFR (Non-African American) 102.5 ml/min
[2021-12-11 07:46] LABS: Estimated Average Glucose 114 mg/dl; Hemoglobin A1C 5.6 % (4.5-5.6)
--- NOTE | 2021-12-11 08:03 | Hospitalist Progress Note ---
Date of Service December 11, 2021 Assessment & Plan (1) Lumbar disc herniation with radiculopathy: Plan: POD#1 s/p #1 removal of posterior instrumentation L4-L5. #2 exploration of fusion L4-L5. #3 lumbar decompression with bilateral medial facetectomies and foraminotomies L2-L3 L3-L4. #4 posterior spinal fusion L3-L4. #5 placement posterior instrumentation L3-L4 per #6 interbody fusion L3-L4. #7 placement of peek cage 13 x 22 mm at L3-L4. #8 placement locally harvested morselized autograft in the posterior gutters. #9 placement infuse collagen sponge, master graft in the posterior lateral gutters and I factor and interbody space. EBL 50cc Pre-op hgb 15 --> 13.6, acute blood loss from surgery/dilutional from IVF Pain control/bowel regimen/PT/OT/DVT prophylaxis --Added dulcolax daily as beneficial at home when constipated --Pepcid added daily for underlying reflux while on steroids, additional dose available prn for this evening if needed WBC elevated today, 2nd to steroid use Disposition per primary service -- likely d/c in AM A1c 5.6 and bsg checks discontinued (2) Hypothyroidism: Plan: Patient remains on thyroid replacement therapy at this time-- 45mcg daily TSH given tachycardia -- wnl. continue current dose of replacement f/u with her provider for continued monitoring --> follows with [facility] in [place] (3) Electrolyte abnormality: Plan: Hypokalemia -- 2nd to poor intake [employer] Replacement with 40meq x 3 doses, was normal yesterday but got 40meq and K 4.9 on AM labs No further replacement. Mag wnl (4) DVT prophylaxis: Plan: DVT preventions SCDs. chemical contraindicated in spine surgery (5) GERD (gastroesophageal reflux disease): Plan: not on any home medications for such but given steroids, placed on pepcid as above and improvement with pepcid and continued continue to monitor (6) Intractable back pain: Plan: 2nd to above. of note, patient does have hx of kidney stones but felt pain different. no hematuria (although did have blood on UA)/no CVA tenderness but difficult to elicit given recent back surgery/confounding pain No evidence of infection in either case pain control with current regimen, flexeril to be added per discussion with patient/Dr Vera as has hx of spasms that this has been effective for Plan: Hospitalist service will sign off at this time, likely d/c in AM Please call with any questions/concerns Admission and Anticipated Discharge Date Admission Date: December 09, 2021 Supervising Physician Co-Signing Physician Notes PA Supervision Note: I did not personally see or examine the patient today, but I verified all chambers points of IRIS Hidalgo's assessment and plan with the following exceptions/additions: Will restart home [place] thyroid medicine Subjective patient penny this morning doing well worked with therapy passing gas but no BM. GOt dulcolax and miralax. Pepcid effective for reflux and instructed can have additional prn dose this evening if needed and also maalox available prn Encouraged ambulation but to take it easy Pain much improved to leg and strength almost completely returned. some incisional pain but controlled with ordered meds KIANA drain emptied 1-2x this morning, currently 30-40cc bloody drainage seen by dr vera and flexeril to be available prn likely d/c in AM and will sign off at this time. Review of Systems Review of Systems: All systems reviewed & are unremarkable except as noted in HPI & below Physical Exam Physical Exam: WD/WN, up in chair, comfortable eye anicteric, pupils equal trachea midline without deviation resp even and unlabored, ctab, no w/c/r, on room air CV: RRR, no m/r/g, no edema, pulses palpable GI: +hypoactive/BS, soft, tender to epigastric region, no guarding/rigidity MSK/NEURO: dressing lumbar spine c/d/i, KIANA with 30cc bloody drainage, lumbar spine tender to palpation. Improved strength LLE flexion at knee 4/5, 5/5 to RLE b/l plantar/dorsiflexion 5/5 PSYCH: AOx3, pleasant and cooperative Results & Data Results & Data ([facility]) Vital Signs (Past 12 Hours) Vital Signs Temp Pulse Resp BP Pulse Ox 12/11/21 02:43 36.7 C 75 16 108/70 93 12/10/21 22:50 36.5 C 70 20 123/75 92 Laboratory Results 12/11/21 12/11/21 12/11/21 Range/Units 07:57 05:32 05:32 WBC (4.8-10.8) K/uL RBC (4.2-5.4) M/uL Hgb (12.0-16.0) g/dL Hct (37-47) % MCV (80-100) fL MCH (25-34) pg MCHC (32-36) g/dL RDW Std Deviation (36.4-46.3) fL RDW Coeff of Anmol (11.5-14.5) % Plt Count (130-400) K/uL MPV (7.4-10.4) fL Immature Gran % (Auto) % Neut % (Auto) % Lymph % (Auto) % [place] % (Auto) % Eos % (Auto) % Baso % (Auto) % Neut # (Auto) (1.4-6.5) K/uL Lymph # (Auto) (1.2-3.4) K/uL [place] # (Auto) (0.11-0.59) K/uL Eos # (Auto) (0-0.5) K/uL Baso # (Auto) (0-0.2) K/uL Immature Gran # (Auto) (0.00-0.02) K/uL Sodium 134 L (136-145) mmol/L Potassium 4.9 D (3.5-5.1) mmol/L Chloride 105 (98-107) mmol/L Carbon Dioxide 25 (21-32) mmol/L Anion Gap 4 (3-11) BUN 15 (6-23) mg/dl Creatinine 0.59 L (0.6-1.2) mg/dl Est Cr Clr Drug Dosing 120.9 ml/min Est GFR ( Amer) 118.8 ml/min Est GFR (Non-Af Amer) 102.5 ml/min BUN/Creatinine Ratio 25.4 H (10-20) Glucose 105 H (70-99) mg/dl POC Glucose 99 (70-99) mg/dl Estimat Average Glucose 114 mg/dl Hemoglobin A1c 5.6 (4.5-5.6) % Calcium 8.7 (8.5-10.1) mg/dl Triglycerides 63 (0-150) mg/dl Cholesterol 213 H (0-200) mg/dl LDL Cholesterol, Calc 143 mg/dl VLDL Cholesterol, Calc 13 mg/dl HDL Cholesterol 57 mg/dl Cholesterol/HDL Ratio 3.7 TSH (0.300-4.500) uIu/ml Free T4 (0.61-1.60) ng/dl Free T3 (2.3-4.2) pg/ml 12/11/21 12/10/21 12/10/21 Range/Units 05:32 20:44 17:05 WBC 19.13 H (4.8-10.8) K/uL RBC 4.38 (4.2-5.4) M/uL Hgb 13.6 (12.0-16.0) g/dL Hct 41.5 (37-47) % MCV 94.7 (80-100) fL MCH 31.1 (25-34) pg MCHC 32.8 (32-36) g/dL RDW Std Deviation 42.8 (36.4-46.3) fL RDW Coeff of Anmol 12.4 (11.5-14.5) % Plt Count 281 (130-400) K/uL MPV 9.3 (7.4-10.4) fL Immature Gran % (Auto) 0.4 % Neut % (Auto) 87.2 % Lymph % (Auto) 4.8 % [place] % (Auto) 7.5 % Eos % (Auto) 0.0 % Baso % (Auto) 0.1 % Neut # (Auto) 16.69 H (1.4-6.5) K/uL Lymph # (Auto) 0.91 L (1.2-3.4) K/uL [place] # (Auto) 1.44 H (0.11-0.59) K/uL Eos # (Auto) 0.00 (0-0.5) K/uL Baso # (Auto) 0.01 (0-0.2) K/uL Immature Gran # (Auto) 0.08 H (0.00-0.02) K/uL Sodium (136-145) mmol/L Potassium (3.5-5.1) mmol/L Chloride (98-107) mmol/L Carbon Dioxide (21-32) mmol/L Anion Gap (3-11) BUN (6-23) mg/dl Creatinine (0.6-1.2) mg/dl Est Cr Clr Drug Dosing ml/min Est GFR ( Amer) ml/min Est GFR (Non-Af Amer) ml/min BUN/Creatinine Ratio (10-20) Glucose (70-99) mg/dl POC Glucose 126 H 138 H (70-99) mg/dl Estimat Average Glucose mg/dl Hemoglobin A1c (4.5-5.6) % Calcium (8.5-10.1) mg/dl Triglycerides (0-150) mg/dl Cholesterol (0-200) mg/dl LDL Cholesterol, Calc mg/dl VLDL Cholesterol, Calc mg/dl HDL Cholesterol mg/dl Cholesterol/HDL Ratio TSH (0.300-4.500) uIu/ml Free T4 (0.61-1.60) ng/dl Free T3 (2.3-4.2) pg/ml 12/10/21 12/10/21 12/10/21 Range/Units 15:08 15:08 08:16 WBC (4.8-10.8) K/uL RBC (4.2-5.4) M/uL Hgb (12.0-16.0) g/dL Hct (37-47) % MCV (80-100) fL MCH (25-34) pg MCHC (32-36) g/dL RDW Std Deviation (36.4-46.3) fL RDW Coeff of Anmol (11.5-14.5) % Plt Count (130-400) K/uL MPV (7.4-10.4) fL Immature Gran % (Auto) % Neut % (Auto) % Lymph % (Auto) % [place] % (Auto) % Eos % (Auto) % Baso % (Auto) % Neut # (Auto) (1.4-6.5) K/uL Lymph # (Auto) (1.2-3.4) K/uL [place] # (Auto) (0.11-0.59) K/uL Eos # (Auto) (0-0.5) K/uL Baso # (Auto) (0-0.2) K/uL Immature Gran # (Auto) (0.00-0.02) K/uL Sodium (136-145) mmol/L Potassium (3.5-5.1) mmol/L Chloride (98-107) mmol/L Carbon Dioxide (21-32) mmol/L Anion Gap (3-11) BUN (6-23) mg/dl Creatinine (0.6-1.2) mg/dl Est Cr Clr Drug Dosing ml/min Est GFR ( Amer) ml/min Est GFR (Non-Af Amer) ml/min BUN/Creatinine Ratio (10-20) Glucose (70-99) mg/dl POC Glucose (70-99) mg/dl Estimat Average Glucose mg/dl Hemoglobin A1c (4.5-5.6) % Calcium (8.5-10.1) mg/dl Triglycerides (0-150) mg/dl Cholesterol (0-200) mg/dl LDL Cholesterol, Calc mg/dl VLDL Cholesterol, Calc mg/dl HDL Cholesterol mg/dl Cholesterol/HDL Ratio TSH 2.180 (0.300-4.500) uIu/ml Free T4 1.59 (0.61-1.60) ng/dl Free T3 4.32 H (2.3-4.2) pg/ml Diagnostic Findings Lumbar Spine X-Ray 12/10/21 11:30 FL lumbar spine 2-3V HISTORY: 56 years-old Female L3-L4 DECOMPRESSION COMPARISON: MRI lumbar spine December 05, 2021 TECHNIQUE: 2 spot fluoroscopic images of the lumbar spine were obtained utilizing 7.9 seconds without FINDINGS: Discectomy changes are noted at L3-L4, L4-L5 and L5-S1. Posterior interbody radhika and screw fusion hardware at L3-L4. Interval removal of the L5 pedicle screws. Alignment appears satisfactory. No unexpected opaque foreign body identified. IMPRESSION: Fluoroscopic assistance as above. ACT 112: Negative or not required by law. The above report was generated using voice recognition software. It may contain grammatical, syntax or spelling errors. Electronically signed by: Rodrigo Patel M.D. 12/10/2021 2:06 PM PG Care Time/CCT Total # of Minutes Spent Total Time Spent with Patient: Total time spent is greater than 50% in coordination of care (as documented) at patient's floor/unit and/or counseling patient: Coding Level of Care Code 65216 Subseq Hosp Care Lvl 2 Diagnoses Lumbar disc herniation with radiculopathy M51.16 Hypothyroidism E03.9 Electrolyte abnormality E87.8 DVT prophylaxis Z29.9 GERD (gastroesophageal reflux disease) K21.9 Intractable back pain M54.9
[2021-12-11] MEDS: CHOLECALCIFEROL 400 UNITS 10 MCG TAB PO SCH (08:17)
[2021-12-11] MEDS: FAMOTIDINE 20 MG in SYRINGE 3 ML IV SCH (08:17)
[2021-12-11] MEDS: dexAMETHasone 6 MG in SYRINGE 0 ML IV SCH (08:18)
[2021-12-11] MEDS ORDERED: bisacodyL 10 MG SUPP PR PRN (10:39)
--- NOTE | 2021-12-11 13:24 | Orthopedic Progress Note ---
Date of Service December 11, 2021 Assessment & Plan (1) Lumbar disc herniation with radiculopathy: Plan: This time continue physical therapy monitor KIANA operatively discharge home in the next few days. Admission and Anticipated Discharge Date Admission Date: December 09, 2021 Subjective Back pain controlled leg pain markedly improved Physical Exam Physical Exam: Patient is good strength testing appears comfortable. Results & Data ([facility]) Vital Signs (Past 12 Hours) Vital Signs Temp Pulse Pulse Resp BP Pulse Ox 12/11/21 12:09 36.8 C 79 16 110/71 94 12/11/21 02:43 36.7 C 75 16 108/70 93
[2021-12-11] MEDS: traMADol HCL 50 MG TABLET PO PRN ×2 (16:42→22:56)
[2021-12-11] MEDS: PROGESTERONE 200 MG PO SCH (17:45)
[2021-12-11] MEDS: MAGNESIUM HYDROXIDE SUSP 30 ML UDC PO PRN (20:02)
[2021-12-11] MEDS: DOCUSATE SODIUM/SENNA 50/8.6MG TAB PO SCH (20:02)
[2021-12-11] MEDS: MELATONIN 3 MG TAB PO SCH (22:56)
[2021-12-12] MEDS: oxyCODONE HCL IR 5 MG TAB (IMMEDIATE RELEASE) PO PRN ×4 (01:40→20:24)
[2021-12-12] MEDS: ARMOUR THYROID 30 MG TAB PO SCH (05:56)
[2021-12-12] MEDS: POLYETHYLENE (MIRALAX) 17 GM PACK PO SCH ×4 (05:57→23:45)
[2021-12-12] MEDS: traMADol HCL 50 MG TABLET PO PRN ×4 (06:02→22:27)
--- NOTE | 2021-12-12 08:37 | Orthopedic Progress Note ---
Date of Service December 12, 2021 Assessment & Plan (1) Lumbar stenosis with neurogenic claudication: Plan: Patient is doing well postoperatively #2. We will continue with GI DVT prophylaxis. We will continue to mobilize her with physical therapy. Anticipate discharge to home tomorrow. Admission and Anticipated Discharge Date Admission Date: December 09, 2021 Subjective Patient seen bedside in room 309. She is doing well this morning. Her pain is controlled. She is not having any nausea. She is tolerating p.o. well. She still feels that her leg is weak but is not having pain. She denies any other numbness, tingling, paresthesias Physical Exam Physical Exam: On exam she is alert and oriented. She is able to move her legs to gravity without difficulties. Her sensation is intact to light touch. Her abdomen soft and nontender her calves are supple and nontender. Results & Data ([facility]) Vital Signs (Past 12 Hours) Vital Signs Temp Pulse Pulse Resp BP Pulse Ox 12/12/21 07:38 36.8 C 83 16 106/67 95 12/11/21 22:36 36.8 C 77 16 113/74 95
[2021-12-12] MEDS: dexAMETHasone 6 MG in SYRINGE 0 ML IV SCH ×2 (08:57→09:12)
[2021-12-12] MEDS: FAMOTIDINE 20 MG in SYRINGE 3 ML IV SCH ×2 (08:57→09:13)
[2021-12-12] MEDS: CHOLECALCIFEROL 400 UNITS 10 MCG TAB PO SCH (08:57)
[2021-12-12] MEDS: PROGESTERONE 200 MG PO SCH (17:36)
[2021-12-12] MEDS: MAGNESIUM HYDROXIDE SUSP 30 ML UDC PO PRN (17:40)
[2021-12-12] MEDS: MELATONIN 3 MG TAB PO SCH (20:20)
[2021-12-12] MEDS: DOCUSATE SODIUM/SENNA 50/8.6MG TAB PO SCH (20:20)
[2021-12-13] MEDS: POLYETHYLENE (MIRALAX) 17 GM PACK PO SCH (06:15)
--- NOTE | 2021-12-13 07:30 | Discharge Summary ---
Date of Service December 13, 2021 Admission HPI Per Admitting Provider This is a 56-year-old female that presents now twice to the emergency room with complaints of severe back left leg pain with progressive strength deficit. She does have known massive disc herniation L3-L4 with cephalad migration. This is causing severe spinal stenosis and neural compression. She notes pain rating into the buttock anterior lateral thigh below her knee. She describes the leg giving way on a regular basis. She is unable to find a comfortable position. She has tried oral steroids and narcotics with little to no relief. Discharge Data Consultations 12/09/21 10:37 ED Decision to Admit Stat 12/09/21 14:53 Consult Hospitalist Routine Procedures Performed Operation Date: 12/10/21 11:30 Actual Procedures p L3-L4 Decompression Fusion Lumbar, Spinal Cord Monitoring(Not Applicable) - Devendra Vera DO s Hardware Removal (Not Applicable) - Devendra Vera DO Hospital Course (1) Lumbar disc herniation with radiculopathy: Patient is a pleasant 56-year-old female with history of physical examination radiographic images consistent with the above-mentioned diagnosis. This reason she presented to the emergency room and on 12/10/2021 was taken to the operating room undergone a lumbar decompression and fusion at L3-4. This performed by Dr. Vera under general anesthesia. She left the operating room with a KIANA drain in place and was transferred PACU in stable condition. She was then sent to the orthopedic floor. She was placed on GI and DVT prophylaxis. She is seen by physical therapy for ambulation and gait training. Throughout hospital course her calves remain supple and nontender. And on postop day #3 she was deemed safe for home discharge. Her discharge instructions were to avoid any bending, lifting, twisting. She should not anything heavier than 5 to [address] She should not drive for at least 2 weeks until she follows up in the office. She is to change her dressing once daily until the dressing was dry and she may begin showering. We will see her for routine follow-up approximately 2 weeks out from her surgery. She was called to be seen sooner if she develops any increased pain, drainage, fever, or chills.
[2021-12-13] MEDS: ARMOUR THYROID 30 MG TAB PO SCH (08:04)
[2021-12-13] MEDS: CHOLECALCIFEROL 400 UNITS 10 MCG TAB PO SCH (08:04)
[2021-12-13] MEDS: dexAMETHasone 6 MG in SYRINGE 0 ML IV SCH ×2 (08:04→08:23)
[2021-12-13] MEDS: FAMOTIDINE 20 MG in SYRINGE 3 ML IV SCH ×2 (08:04→08:24)
[2021-12-13] MEDS: oxyCODONE HCL IR 5 MG TAB (IMMEDIATE RELEASE) PO PRN (10:31)
== END 2021-12-13 10:58 | disposition home or self-care (01) | DRG 454 ==
LOC: ED 07:45 → 3E 10:44